=== PATIENT | male | born 1945 | race Caucasian/White ===

== ENCOUNTER → 2018-12-17 | Outpatient (CLI) | payer MEDICARE ==
[2018-12-17 16:27] LABS: Basophils % (A) 0 %; Eosinophils # (A) 0.3 k/uL (0-0.7); Eosinophils % (A) 4 %; HCT 43.3 % (39.0-53.0); HGB 14.2 gm/dL (13.0-17.5); Lymphocytes # (A) 1.6 k/uL (1.0-4.8); Lymphocytes % (A) 19 %; MCH 29.9 pg (25.0-35.0); MCHC 32.8 g/dL (31.0-37.0); MCV 91.3 fL (80.0-100.0); Mean Platelet Volume 6.7; Monocytes # (A) 0.6 k/uL (0-1.0); Monocytes % (A) 7 %; Neutrophils # (A) 5.7 k/uL (1.3-7.7); Neutrophils % (A) 68 %; Platelet Count 222 k/uL (150-450); RBC 4.75 m/uL (4.30-5.90); RDW 12.7 % (11.5-15.5); WBC 8.4 k/uL (3.8-10.6)
[2018-12-17 16:32] LABS: Amorphous Sediment,Urine Rare /hpf; Appearance,Urine Clear (Clear); Bilirubin,Urine Negative (Negative); Blood,Urine Negative (Negative); Color,Urine Yellow; Glucose,Urine (UA) Negative (Negative); Hyaline Casts,Urine 6 /lpf (0-2); Ketones,Urine Negative (Negative); Leukocyte Esterase,Urine Moderate (Negative); Mucus,Urine Rare /hpf; Nitrite,Urine Negative (Negative); Protein,Urine Negative (Negative); Specific Gravity,Urine 1.021 (1.001-1.035); Squamous Epithelial Cell,Urine 1 /hpf (0-4); Urobilinogen,Urine <2.0 mg/dL (<2.0)
[2018-12-17 16:39] LABS: Calcium 9.8 mg/dL (8.4-10.2)
[2018-12-17 17:05] LABS: Potassium 4.4 mmol/L (3.5-5.1)
--- NOTE | 2018-12-17 22:37 | US ---
EXAMINATION TYPE: US scrotum with doppler. Grayscale and color Doppler Duplex imaging performed of griffin leija scrotum. DATE OF EXAM: 12/17/2018 COMPARISON: Prior scrotal ultrasound March 02, 2013 CLINICAL HISTORY: M50.89 Testicular mass. Left testicle pain and edema. EXAM MEASUREMENTS: TESTICLES: Right Testicle: 3.4 x 2.3 x 3.3 cm Left Testicle: 4.0 x 2.6 x 3.2 cm EPIDIDYMIS HEAD: Right Epididymis: .6 x .8 cm Cystic area seen .3 x .2 cm. Left Epididymis: 1.0 x 1.1 x 1.3 cm Cystic area .7 x .6 x .9cm. Doppler performed to assess for testicular vascularity; good bilateral color flow and waveforms are s een. Presence of hydroceles: Yes left Presence of varicoceles: No Comparison view show symmetric blood flow to both testicles during real-time scanning per technologis t. IMPRESSION: Small left-sided scrotal fluid collection or hydrocele. Incidental bilateral epididymal thin-walled cysts. No suspicious diminished or increased blood flow to left testicle.
== END | disposition home or self-care (01) ==
LOC: RADUSMAIN 15:44
PROVIDERS: ATTEND Family Medicine
DX: N43.3 Hydrocele, unspecified (principal)
CPT/HCPCS: 76870; 80048; 81001; 85025; 87086; 93975

== ENCOUNTER 2020-11-15 10:34 | Day surgery (SDC) | payer MEDICARE ==
[2020-11-13 13:50] VITALS: BMI 32.5
[~2020-11-15 10:34] MED LIST: ALPRAZolam 0.25 MG TAB PO PRN; ALPRAZolam 0.5 MG TAB PO PRN; ATORVASTATIN 80 MG TAB PO STA; HEPARIN SODIUM,PORCINE 10,000 UNIT in SODIUM CHLORIDE 0.9% 1,000 ML IRRIGATION PRN; HEPARIN SODIUM,PORCINE 2,500 UNIT in SODIUM CHLORIDE 0.9% 250 ML IRRIGATION PRN; NITROGLYCERIN SL TABS 0.4 MG TAB SUBLINGUAL PRN; SODIUM CHLORIDE 0.9% 1,000 ML in EMPTY BAG 1 BAG IV ONE
[2020-11-15] MEDS ORDERED: SODIUM CHLORIDE 0.9% 1,000 ML IV ONE (10:57)
[2020-11-15 11:06] LABS: Glucose,Whole Blood 181 mg/dL (75-99)
[2020-11-15 11:10] VITALS: RESP 16; TEMP 98.4
[2020-11-15] MEDS ORDERED: fentaNYL (PF) 50 MCG/ML 2 ML AMP ONE (12:02)
[2020-11-15] MEDS ORDERED: BENZOCAINE SPRAY 1 CAN MUCOUS MEM ONE (12:17)
[2020-11-15] MEDS ORDERED: IV FLUID CONTINUATION 650 ML IV ONE (12:25)
[2020-11-15] MEDS ORDERED: LIDOCAINE 1% INJ 10MG/ML (20 ML MDV) ONE (12:26)
[2020-11-15] MEDS ORDERED: VERAPAMIL 2.5 MG/ML 2 ML AMP ONE (12:26)
[2020-11-15] MEDS ORDERED: MIDAZOLAM 2 MG/2 ML VIAL IVP ONE ×3 (12:28→12:31)
[2020-11-15] MEDS: fentaNYL (PF) 50 MCG/ML 2 ML AMP IVP ONE ×2 (12:28→12:31)
[2020-11-15] MEDS ORDERED: LIDOCAINE 1% INJ 10MG/ML (20 ML MDV) SQ ONE (13:13)
[2020-11-15] MEDS ORDERED: VERAPAMIL SYRINGE (5 MG/10 ML) INTRAARTER ONE (13:18)
[2020-11-15] MEDS ORDERED: HEPARIN SODIUM 1,000 UN/ML (10ML VL) IV ONE (13:19)
[2020-11-15] MEDS ORDERED: IOPAMIDOL-370 125ML BTL INJ ONE (13:27)
[2020-11-15] MEDS ORDERED: RX INFO: IV CONTRAST WAS GIVEN 1 EACH MISC MISCELLANE PRN (14:08)
[2020-11-15] MEDS ORDERED: SODIUM CHLORIDE 0.9% 1,000 ML IV SCH (14:15)
[2020-11-15 16:52] VITALS: BP 142/76; PULSE 66
--- NOTE | 2020-11-15 20:53 | P.TEE ---
Description of Procedure(s): Procedure performed: Transesophageal Echocardiogram with color flow doppler, pulsed wave doppler and continuous wave doppler, moderate conscious sedation Moderate conscious sedation: Moderate conscious sedation was supplied with direct supervision of myself using Versed and Fentanyl. Complications: none Indications: Patient is a pleasant 75 year old male with history of HTN, HLD and severe aortic stenosis who has been experiencing increased JACK. He had transthoracic echo performed which showed severe aortic stenosis and therefore KAITLYNN, LHC were recommended. PROCEDURE: After the risks, benefits and alternatives of the above mentioned procedure was explained in detail with the patient, informed consent was obtained. Patient was brought to the lab in a fasting state. Patient was given IV Versed and Fentanyl for sedation. The throat was sprayed with Hurricane to anesthetize the throat. A lubricated Omni probe was then introduced into the esophagus and stomach and multiple views were obtained. 2D echo with color flow doppler, pulsed wave doppler and continuous wave doppler was utilized. Agitated saline bubbles were injected to assess for any intra-atrial shunt. The probe was then removed. Patient tolerated the procedure well. Patient was transferred to the post procedure area in stable and satisfactory condition. FINDINGS: 1. The aortic valve appears tricuspid however cannot rule out bicuspid with mainly fusion of right and left cusps. The valve is heavily calcified with se sameer aortic stenosis. There is mild AI. 2. The mitral valve appears be normal with moderate central mitral regurgitation. There is systolic blunting of the pulmonary vein however no reversal. 3. Tricuspid valve appears to be normal with mild TR. 4. The interatrial septum is intact. No evidence of PFO. 5. Left atrial appendage is free of clot. 6. Left ventricular size and function appear to be low normal with EF 50-55%
--- NOTE | 2020-11-15 21:08 | P.CARDCATH ---
Description of Procedure: PROCEDURES PERFORMED: [Left heart catheterization,] bilateral coronary angiography INDICATION: Severe aortic stenosis HISTORY: Patient is a pleasant 75 year old male with history of hypertension, CKD and hyperlipidemia who has been experiencing increased episodes of SOB over the last few months. He was found to have severe aortic stenosis by TTE and KAITLYNN and LHC were recommended. CONSENT:I have discussed the risks, benefits and alternative therapies for the above-mentioned procedure and for both sedation/analgesia as well as necessary blood product administration, if indicated, as they pertain to this patient. The patient has indicated understanding and acceptance of the risks and procedures discussed. PROCEDURE: After the risks, benefits and alternatives of the above mentioned procedure explained in detail with the patient, informed consent was obtained. Patient was taken to the catheterization lab and prepped and draped in usual fashion. 1% lidocaine was used to anesthetize the right radial artery. A 6- Moldovan sheath was placed in the right radial artery using modified Seldinger technique. Left coronary angiography was performed with a 5-Moldovan JL 3.5 catheter and right coronary angiography was performed with a 5-Moldovan JR5 catheter in various views. The right radial sheath was removed and a TR band wa s placed with hemostasis achieved. The patient tolerated the procedure well. Patient was transported back to the post catheterization holding area in stable condition. Conscious Sedation: Patient was monitored under the direct supervision of vision of myself for conscious sedation using Versed and fentanyl for a total duration of 17 minutes HEMODYNAMICS: Ao: 132/78 SELECTIVE CORONARY ARTERIOGRAPHY: LEFT MAIN: The left main is a large caliber vessel which bifurcates into the LAD and circumflex. There is minimal 10% left main stenosis. LEFT ANTERIOR DESCENDING CORONARY ARTERY: LAD is a large caliber vessel which wraps around to the apex. There is proximal LAD 20% stenosis and mid LAD 60-70% stenosis. Diagonal 1 is moderate caliber and has 30% stenosis. The distal LAD has mild luminal irregularities. LEFT CIRCUMFLEX CORONARY ARTERY: Left circumflex is a large caliber vessel which is codominant. It has mild 20-30% proximal to mid circumflex stenosis. OM1 is small caliber without significant stenosis. OM2 is moderate caliber with mild 20-30% proximal stenosis. After the moderate caliber OM2, there is immediately a small caliber OM3 then the circumflex has a long 100% stenosis which gives off 2 more small caliber OM, PLV branches. There are faint left to right collaterals. RIGHT CORONARY ARTERY: The right coronary artery is a moderate caliber vessel which gives off an RV branch and what appears to be a small caliber PDA branch and is codominant. There is a 100% proximal RCA stenosis. FINAL IMPRESSION: 1. CAD as described above including 100% distal circumflex, 100% RCA, 60-70% mid LAD. 2. Known severe aortic stenosis. PLAN: 1. Aggressive risk factor modification per most recent ACC/AHA guidelines. 2. Follow-up in the office in 1-2 weeks. 3. Multidisciplinary approach regarding possible aortic valve replacement and possible revascularization.
== END 2020-11-15 17:08 | disposition home or self-care (01) ==
LOC: CATHCVL 10:34
PROVIDERS: ATTEND Internal Medicine
DX: I25.10 Atherosclerotic heart disease of native coronary artery without angina pectoris (principal); I25.82 Chronic total occlusion of coronary artery; Z20.822 Contact with and (suspected) exposure to COVID-19; E11.9 Type 2 diabetes mellitus without complications; E78.5 Hyperlipidemia, unspecified; I12.9 Hypertensive chronic kidney disease with stage 1 through stage 4 chronic kidney disease, or unspecified chronic kidney disease; N18.9 Chronic kidney disease, unspecified; Q23.1 Congenital insufficiency of aortic valve; I49.5 Sick sinus syndrome; E66.9 Obesity, unspecified; I42.9 Cardiomyopathy, unspecified; F17.210 Nicotine dependence, cigarettes, uncomplicated; I34.0 Nonrheumatic mitral (valve) insufficiency; I49.1 Atrial premature depolarization; I49.3 Ventricular premature depolarization; Z79.899 Other long term (current) drug therapy; Z79.82 Long term (current) use of aspirin
CPT/HCPCS: 93312; 93320; 93325; 93454; 87635; C1894; J2250; J2001; J3010; J1644; Q9967

== ENCOUNTER 2020-12-02 | Inpatient (IN) | payer MEDICARE | END 2020-12-13 17:00 | disposition home health service (06) | DRG 219 | PROVIDERS: ADMIT Hospitalist | PROC: 5A0945A Assistance with Respiratory Ventilation, 24-96 Consecutive Hours, High Flow/Velocity Cannula (ICD-10-PCS; 2020-12-02) | PROC: B54DZZZ Ultrasonography of Bilateral Lower Extremity Veins (ICD-10-PCS; 2020-12-06) | PROC: 02RF08Z Replacement of Aortic Valve with Zooplastic Tissue, Open Approach (ICD-10-PCS; principal; 2020-12-08) | PROC: 02100Z9 Bypass Coronary Artery, One Artery from Left Internal Mammary, Open Approach (ICD-10-PCS; 2020-12-08) | PROC: 021209W Bypass Coronary Artery, Three Arteries from Aorta with Autologous Venous Tissue, Open Approach (ICD-10-PCS; 2020-12-08) | PROC: 06BQ4ZZ Excision of Left Saphenous Vein, Percutaneous Endoscopic Approach (ICD-10-PCS; 2020-12-08) | PROC: 02L70CK Occlusion of Left Atrial Appendage with Extraluminal Device, Open Approach (ICD-10-PCS; 2020-12-08) | PROC: 5A1221Z Performance of Cardiac Output, Continuous (ICD-10-PCS; 2020-12-08) | PROC: B246ZZ4 Ultrasonography of Right and Left Heart, Transesophageal (ICD-10-PCS; 2020-12-08) | PROC: 3E033XZ Introduction of Vasopressor into Peripheral Vein, Percutaneous Approach (ICD-10-PCS; 2020-12-08) | CPT/HCPCS: 36415; 36600; 70486; 71045; 71046; 71250; 80048; 80053; 80061; 80074; 81001; 81003; 82330; 82805; 83036; 83605; 83615; 83735; 84132; 84145; 84443; 84484; 85025; 85027; 85520; 85610; 85730; 86140; 86850; 86891; 86900; 86901; 86920; 87040; 87070; 87635; 88305; 88311; 93005; 93306; 93308; 93880; 93922; 93923; 93930; 93970; 94002; 94150; 94640; 99285 ==

== ENCOUNTER 2020-12-02 04:13 | Emergency (ER) | payer MEDICARE, BC ==
[2020-12-02 04:20] VITALS: TEMP 102.6
[2020-12-02] MEDS ORDERED: ACETAMINOPHEN TAB 500 MG TAB PO STA (04:22)
[2020-12-02] MEDS ORDERED: SODIUM CHLORIDE 0.9% 1,000 ML IV STA ×2 (04:22)
[2020-12-02] MEDS ORDERED: SODIUM CHLORIDE 0.9% 500 ML 500 ML IV STA (04:22)
[2020-12-02] MEDS ORDERED: IBUPROFEN 800 MG TAB PO STA (04:23)
--- NOTE | 2020-12-02 04:23 | ED ---
SOB HPI - General Chief Complaint: Shortness of Breath Stated Complaint: SOB Time Seen by Provider: 12/02/20 04:21 Source: patient, EMS Mode of arrival: EMS Limitations: no limitations - Related Data Allergies Allergy/AdvReac Type Severity Reaction Status Date / Time No Known Allergies Allergy Verified 12/02/20 04:20 Review of Systems ROS Statement: Those systems with pertinent positive or pertinent negative responses have been documented in the HPI. ROS Other: All systems not noted in ROS Statement are negative. Past Medical History Past Medical History: Diabetes Mellitus, Hypertension Additional Past Medical History / Comment(s): pt states that he needs a aortic valve replacement History of Any Multi-Drug Resistant Organisms: None Reported Past Surgical History: Tonsillectomy Past Psychological History: No Psychological Hx Reported Smoking Status: Former smoker Past Alcohol Use History: None Reported Past Drug Use History: None Reported General Exam Limitations: no limitations Course Vital Signs 12/02/20 12/02/20 12/02/20 04:14 04:21 05:00 Temperature 102.6 F H Pulse Rate 124 H 101 H Respiratory 20 20 18 Rate Blood Pressure 118/69 115/70 O2 Sat by Pulse 95 93 L Oximetry Medical Decision Making - Lab Data Result diagrams: 12/02/20 04:25 12/02/20 04:25 Lab Results 12/02/20 12/02/20 12/02/20 Range/Units 04:25 04:25 04:25 WBC 7.7 (3.8-10.6) k/uL RBC 4.16 L (4.30-5.90) m/uL Hgb 12.7 L (13.0-17.5) gm/dL Hct 37.1 L (39.0-53.0) % MCV 89.2 (80.0-100.0) fL MCH 30.5 (25.0-35.0) pg MCHC 34.2 (31.0-37.0) g/dL RDW 12.6 (11.5-15.5) % Plt Count 178 (150-450) k/uL MPV 7.2 Neutrophils % 83 % Lymphocytes % 8 % Monocytes % 6 % Eosinophils % 1 % Basophils % 0 % Neutrophils # 6.4 (1.3-7.7) k/uL Lymphocytes # 0.6 L (1.0-4.8) k/uL Monocytes # 0.5 (0-1.0) k/uL Eosinophils # 0.1 (0-0.7) k/uL Basophils # 0.0 (0-0.2) k/uL PT 10.5 (9.0-12.0) sec INR 1.0 (<1.2) APTT 23.6 (22.0-30.0) sec Sodium 136 L (137-145) mmol/L Potassium 4.2 (3.5-5.1) mmol/L Chloride 106 (98-107) mmol/L Carbon Dioxide 19 L (22-30) mmol/L Anion Gap 11 mmol/L BUN 29 H (9-20) mg/dL Creatinine 1.24 (0.66-1.25) mg/dL Est GFR (CKD-EPI)AfAm 66 (>60 ml/min/1.73 sqM) Est GFR (CKD-EPI)NonAf 57 (>60 ml/min/1.73 sqM) Glucose 209 H (74-99) mg/dL Plasma Lactic Acid Mio (0.7-2.0) mmol/L Calcium 8.9 (8.4-10.2) mg/dL Magnesium 1.7 (1.6-2.3) mg/dL Total Bilirubin 0.8 (0.2-1.3) mg/dL AST 49 (17-59) U/L ALT 28 (4-49) U/L Alkaline Phosphatase 68 (38-126) U/L Lactate Dehydrogenase 562 (313-618) U/L C-Reactive Protein 20.7 H (<1.0) mg/dL NT-Pro-B Natriuret Pep pg/mL Total Protein 6.3 (6.3-8.2) g/dL Albumin 3.5 (3.5-5.0) g/dL Urine Color Urine Appearance (Clear) Urine pH (5.0-8.0) Ur Specific [place] (1.001-1.035) Urine Protein (Negative) Urine Glucose (UA) (Negative) Urine Ketones (Negative) Urine Blood (Negative) Urine Nitrite (Negative) Urine Bilirubin (Negative) Urine Urobilinogen (<2.0) mg/dL Ur Leukocyte Esterase (Negative) Urine RBC (0-5) /hpf Urine WBC (0-5) /hpf Ur Squamous Epith Cells (0-4) /hpf Urine Bacteria (None) /hpf Hyaline Casts (0-2) /lpf Urine Mucus (None) /hpf Acetone, Qual Positive (Negative) Coronavirus (PCR) (Not Detectd) 12/02/20 12/02/20 12/02/20 Range/Units 04:25 04:25 04:43 WBC (3.8-10.6) k/uL RBC (4.30-5.90) m/uL Hgb (13.0-17.5) gm/dL Hct (39.0-53.0) % MCV (80.0-100.0) fL MCH (25.0-35.0) pg MCHC (31.0-37.0) g/dL RDW (11.5-15.5) % Plt Count (150-450) k/uL MPV Neutrophils % % Lymphocytes % % Monocytes % % Eosinophils % % Basophils % % Neutrophils # (1.3-7.7) k/uL Lymphocytes # (1.0-4.8) k/uL Monocytes # (0-1.0) k/uL Eosinophils # (0-0.7) k/uL Basophils # (0-0.2) k/uL PT (9.0-12.0) sec INR (<1.2) APTT (22.0-30.0) sec Sodium (137-145) mmol/L Potassium (3.5-5.1) mmol/L Chloride (98-107) mmol/L Carbon Dioxide (22-30) mmol/L Anion Gap mmol/L BUN (9-20) mg/dL Creatinine (0.66-1.25) mg/dL Est GFR (CKD-EPI)AfAm (>60 ml/min/1.73 sqM) Est GFR (CKD-EPI)NonAf (>60 ml/min/1.73 sqM) Glucose (74-99) mg/dL Plasma Lactic Acid Mio 1.4 (0.7-2.0) mmol/L Calcium (8.4-10.2) mg/dL Magnesium (1.6-2.3) mg/dL Total Bilirubin (0.2-1.3) mg/dL AST (17-59) U/L ALT (4-49) U/L Alkaline Phosphatase (38-126) U/L Lactate Dehydrogenase (313-618) U/L C-Reactive Protein (<1.0) mg/dL NT-Pro-B Natriuret Pep 2500 pg/mL Total Protein (6.3-8.2) g/dL Albumin (3.5-5.0) g/dL Urine Color Yellow Urine Appearance Cloudy (Clear) Urine pH 5.0 (5.0-8.0) Ur Specific [place] 1.024 (1.001-1.035) Urine Protein 1+ H (Negative) Urine Glucose (UA) 1+ H (Negative) Urine Ketones 2+ H (Negative) Urine Blood Small H (Negative) Urine Nitrite Negative (Negative) Urine Bilirubin Negative (Negative) Urine Urobilinogen <2.0 (<2.0) mg/dL Ur Leukocyte Esterase Large H (Negative) Urine RBC 2 (0-5) /hpf Urine WBC 56 H (0-5) /hpf Ur Squamous Epith Cells 1 (0-4) /hpf Urine Bacteria Rare H (None) /hpf Hyaline Casts 15 H (0-2) /lpf Urine Mucus Rare H (None) /hpf Acetone, Qual (Negative) Coronavirus (PCR) (Not Detectd) 12/02/20 Range/Units 05:15 WBC (3.8-10.6) k/uL RBC (4.30-5.90) m/uL Hgb (13.0-17.5) gm/dL Hct (39.0-53.0) % MCV (80.0-100.0) fL MCH (25.0-35.0) pg MCHC (31.0-37.0) g/dL RDW (11.5-15.5) % Plt Count (150-450) k/uL MPV Neutrophils % % Lymphocytes % % Monocytes % % Eosinophils % % Basophils % % Neutrophils # (1.3-7.7) k/uL Lymphocytes # (1.0-4.8) k/uL Monocytes # (0-1.0) k/uL Eosinophils # (0-0.7) k/uL Basophils # (0-0.2) k/uL PT (9.0-12.0) sec INR (<1.2) APTT (22.0-30.0) sec Sodium (137-145) mmol/L Potassium (3.5-5.1) mmol/L Chloride (98-107) mmol/L Carbon Dioxide (22-30) mmol/L Anion Gap mmol/L BUN (9-20) mg/dL Creatinine (0.66-1.25) mg/dL Est GFR (CKD-EPI)AfAm (>60 ml/min/1.73 sqM) Est GFR (CKD-EPI)NonAf (>60 ml/min/1.73 sqM) Glucose (74-99) mg/dL Plasma Lactic Acid Mio (0.7-2.0) mmol/L Calcium (8.4-10.2) mg/dL Magnesium (1.6-2.3) mg/dL Total Bilirubin (0.2-1.3) mg/dL AST (17-59) U/L ALT (4-49) U/L Alkaline Phosphatase (38-126) U/L Lactate Dehydrogenase (313-618) U/L C-Reactive Protein (<1.0) mg/dL NT-Pro-B Natriuret Pep pg/mL Total Protein (6.3-8.2) g/dL Albumin (3.5-5.0) g/dL Urine Color Urine Appearance (Clear) Urine pH (5.0-8.0) Ur Specific [place] (1.001-1.035) Urine Protein (Negative) Urine Glucose (UA) (Negative) Urine Ketones (Negative) Urine Blood (Negative) Urine Nitrite (Negative) Urine Bilirubin (Negative) Urine Urobilinogen (<2.0) mg/dL Ur Leukocyte Esterase (Negative) Urine RBC (0-5) /hpf Urine WBC (0-5) /hpf Ur Squamous Epith Cells (0-4) /hpf Urine Bacteria (None) /hpf Hyaline Casts (0-2) /lpf Urine Mucus (None) /hpf Acetone, Qual (Negative) Coronavirus (PCR) Not Detected (Not Detectd) - EKG Data -: EKG Interpreted by Me (PG sinus tachycardia 119 MT 208 QRS 132 QTC 424) Disposition Clinical Impression: UTI (urinary tract infection), Fever, Acute pulmonary edema, Congestive heart failure Disposition: ADMITTED IP TO THIS HOSP Condition: Good Is patient prescribed a controlled substance at d/c from ED?: No Referrals: Jimmy Olson DO [Primary Care Provider] - 1-2 days
--- NOTE | 2020-12-02 05:04 | XR ---
EXAMINATION TYPE: XR chest 1V portable DATE OF EXAM: 12/02/2020 COMPARISON: NONE HISTORY: Short of breath TECHNIQUE: Single view FINDINGS: There is increased pulmonary interstitial density. Heart size is normal. There is no defini te pleural effusion. There are no hilar masses. IMPRESSION: Mild pulmonary interstitial infiltrates are new compared to old exam. This is nonspecific . This could be acute interstitial pneumonia.
[2020-12-02 05:06] VITALS: BP 115/70; PULSE 101; RESP 18
[2020-12-02] MEDS ORDERED: FUROSEMIDE 10 MG/ML 4 ML VIAL IV SCH (06:00)
== END 2020-12-02 06:43 | disposition home or self-care (01) ==
LOC: EDUNIT# 04:13 → EC 04:13
DX: I11.0 Hypertensive heart disease with heart failure (principal); I50.9 Heart failure, unspecified; J81.0 Acute pulmonary edema; N39.0 Urinary tract infection, site not specified; E11.9 Type 2 diabetes mellitus without complications; Z20.822 Contact with and (suspected) exposure to COVID-19; Z87.891 Personal history of nicotine dependence
CPT/HCPCS: 36415; 80053; 81001; 82009; 83605; 83615; 83735; 83880; 85025; 85610; 85730; 86140; 87635; 93005; 99285

== ENCOUNTER 2021-04-29 18:42 | Emergency (ER) | payer MEDICARE ==
--- NOTE | 2021-04-29 21:09 | ED ---
Male Urogenital HPI - General Chief complaint: Urogenital Stated complaint: Unable to urinate Time Seen by Provider: 04/29/21 21:09 Source: patient Mode of arrival: ambulatory Limitations: no limitations - History of Present Illness Initial comments: Bienvenido deluca 75-year-old, history of prostatic hypertrophy for which he follows with urology. Patient was diagnosed with a UTI earlier this week, is currently on antibiotics. Patient went to the clinic earlier today because he was unable to urinate, they performed a straight catheterization and he had 950 mL's of urine drained. He did not have a Tompkins catheter placed. He has not been able to urinate since at times he came to the ER for reevaluation. Patient is also concerned because he is scheduled to have a pacemaker placed on May 08, he is concerned that being treated for an infection will prevent him from being able to have his procedure. - Related Data Home Medications Medication Instructions Recorded Confirmed Alfuzosin HCl [Alfuzosin HCl ER] 10 mg PO HS 11/13/20 12/02/20 Cholecalciferol [Vitamin D3 (25 25 mcg PO DAILY 11/13/20 12/02/20 Mcg = 1000 Iu)] Multivit-Min/FA/Lycopen/Lutein 1 each PO DAILY 11/13/20 12/02/20 [Centrum Silver Tablet] Famotidine [Pepcid] 20 mg PO BID 12/02/20 12/02/20 Rosuvastatin Calcium [Crestor] 20 mg PO DAILY 12/02/20 12/02/20 Previous Rx's Medication Instructions Recorded Acetaminophen Tab [Tylenol] 650 mg PO Q4HR PRN tab 12/13/20 Amiodarone [Cordarone] 400 mg PO BID #45 tab 12/13/20 Ascorbic Acid [Vitamin C] 500 mg PO BID-W/MEALS #30 tab 12/13/20 Aspirin 325 mg PO DAILY #30 tab 12/13/20 Clopidogrel [Plavix] 75 mg PO DAILY #30 tab 12/13/20 Ferrous Sulfate [Iron (65 MG 325 mg PO BID-W/MEALS #30 tab 12/13/20 Elemental)] Losartan [Cozaar] 12.5 mg PO DAILY@1200 #30 tab 12/13/20 Melatonin 6 mg PO HS PRN tablet 12/13/20 Metoprolol Tartrate [Lopressor] 12.5 mg PO BID #60 tab 12/13/20 Psyllium Husk 100% [Metamucil 6 gm PO DAILY packet 12/13/20 Packet] Sennosides-Docusate Sodium 2 each PO HS PRN tab 12/13/20 [Senokot-S] glipiZIDE [Glucotrol] 2.5 mg PO AC-BID #60 tab 12/13/20 metFORMIN HCL [Glucophage] 1,000 mg PO BID-W/MEALS #60 tab 12/13/20 Allergies Allergy/AdvReac Type Severity Reaction Status Date / Time ibuprofen Allergy TOLD NOT Verified 04/29/21 20:17 TO TAKE PER BECAUSE OF HIS KIDNEYS Review of Systems ROS Statement: Those systems with pertinent positive or pertinent negative responses have been documented in the HPI. ROS Other: All systems not noted in ROS Statement are negative. 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 Recent urinary tract infection treated with Cipro. History of Any Multi-Drug Resistant Organisms: None Reported Past Surgical History: Adenoidectomy, Coronary Bypass/CABG, Tonsillectomy Additional Past Surgical History / Comment(s): Per patient recent heart cath found double vessel disease and aortic stenois. Patient was to see Dr. Mendoza 12/12 for CABG workup. Past Anesthesia/Blood Transfusion Reactions: No Reported Reaction Past Psychological History: No Psychological Hx Reported Smoking Status: Former smoker Past Alcohol Use History: None Reported Past Drug Use History: None Reported - Past Family History Sister(s) Family Medical History: Cancer Additional Family Medical History / Comment(s): LUNG CANCER General Exam - General Exam Comments Initial Comments: Physical Exam GENERAL: Patient is well-developed and well-nourished. Patient is nontoxic and well-hydrated and is in no distress. HENT: Normocephalic, Atraumatic. EYES: PERRL, EOMI PULMONARY: Unlabored respirations. CARDIOVASCULAR: RRR Warm and well perfused extremities ABDOMEN: Non-distended SKIN: No rashes or bruising : Deferred NEUROLOGIC: Alert and oriented Normal speech Normal gait MUSCULOSKELETAL: Moving all extremities with no apparent injury PSYCHIATRIC: No SI/HI Limitations: no limitations Course Vital Signs 04/29/21 20:18 Temperature 98.3 F Pulse Rate 69 Respiratory 16 Rate Blood Pressure 163/84 O2 Sat by Pulse 99 Oximetry Medical Decision Making - Medical Decision Making The patient was seen and evaluated, history is obtained from the patient and at bedside pleasant 75-year-old [place] being treated for urinary tract infection, has recurrent episode of urinary retention will have a Tompkins catheter placed. Urinalysis and culture were performed yesterday and culture results are pending. 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 Disposition Clinical Impression: Urinary retention Disposition: HOME SELF-CARE Condition: Stable Instructions (If sedation given, give patient instructions): Tompkins Catheter Placement and Care (ED) Is patient prescribed a controlled substance at d/c from ED?: No Referrals: López Aden DO [Primary Care Provider] - 1-2 days
[2021-04-29 22:43] VITALS: BP 148/68; PULSE 76; RESP 17; TEMP 98.1
== END 2021-04-29 22:25 | disposition home or self-care (01) ==
LOC: EC 18:42
DX: R33.9 Retention of urine, unspecified (principal); I25.10 Atherosclerotic heart disease of native coronary artery without angina pectoris; E11.9 Type 2 diabetes mellitus without complications; K21.9 Gastro-esophageal reflux disease without esophagitis; E78.5 Hyperlipidemia, unspecified; I10 Essential (primary) hypertension; M19.90 Unspecified osteoarthritis, unspecified site; Z95.0 Presence of cardiac pacemaker; Z79.82 Long term (current) use of aspirin; Z79.02 Long term (current) use of antithrombotics/antiplatelets; Z79.84 Long term (current) use of oral hypoglycemic drugs; Z88.6 Allergy status to analgesic agent; Z90.89 Acquired absence of other organs; Z95.5 Presence of coronary angioplasty implant and graft; Z87.891 Personal history of nicotine dependence
CPT/HCPCS: 51702; 99283

== ENCOUNTER 2021-05-26 16:26 | Emergency (ER) | payer MEDICARE ==
[2021-05-26 16:38] VITALS: BP 162/94; PULSE 67; RESP 18; TEMP 98.4
[2021-05-26 16:58] LABS: Appearance,Urine Clear (Clear); Bacteria,Urine Moderate /hpf; Bilirubin,Urine Negative (Negative); Blood,Urine Large (Negative); Budding Yeast,Urine Occasional /hpf; Color,Urine Light Red; Glucose,Urine (UA) Negative (Negative); Ketones,Urine Negative (Negative); Leukocyte Esterase,Urine Small (Negative); Nitrite,Urine Negative (Negative); PH, Urine 6.5 (5.0-8.0); Protein,Urine 1+ (Negative); RBC,Urine 34 /hpf (0-5); Specific Gravity,Urine 1.003 (1.001-1.035); Squamous Epithelial Cell,Urine <1 /hpf (0-4); Urobilinogen,Urine <2.0 mg/dL (<2.0); WBC,Urine 5 /hpf (0-5)
--- NOTE | 2021-05-26 19:13 | ED ---
General Adult HPI - General Chief complaint: Urogenital Stated complaint: Blood in the urine/veliz Time Seen by Provider: 05/26/21 18:10 Source: patient, family, RN notes reviewed - History of Present Illness Initial comments: 75-year-old male with a past medical history of CAD, diabetes mellitus, hyperlipidemia, hypertension, GERD, renal disease presents to the emergency room for hematuria. Patient reports that he has an indwelling Veliz catheter for BPH. He states that the past couple days he has had red urine on and off. States that his replaced the catheter yesterday but it did not seem to help. States in and get his clearance times it is bloody. Patient does see Dr. Gan in the outpatient setting. Patient denies any pain whatsoever. He denies any blood thinners aside from Plavix.Patient has no other complaints at this time including shortness of breath, chest pain, abdominal pain, nausea or vomiting, headache, or visual changes. - Related Data Home Medications Medication Instructions Recorded Confirmed Alfuzosin HCl [Alfuzosin HCl ER] 10 mg PO HS 11/13/20 12/02/20 Cholecalciferol [Vitamin D3 (25 25 mcg PO DAILY 11/13/20 12/02/20 Mcg = 1000 Iu)] Multivit-Min/FA/Lycopen/Lutein 1 each PO DAILY 11/13/20 12/02/20 [Centrum Silver Tablet] Famotidine [Pepcid] 20 mg PO BID 12/02/20 12/02/20 Rosuvastatin Calcium [Crestor] 20 mg PO DAILY 12/02/20 12/02/20 Previous Rx's Medication Instructions Recorded Acetaminophen Tab [Tylenol] 650 mg PO Q4HR PRN tab 12/13/20 Amiodarone [Cordarone] 400 mg PO BID #45 tab 12/13/20 Ascorbic Acid [Vitamin C] 500 mg PO BID-W/MEALS #30 tab 12/13/20 Aspirin 325 mg PO DAILY #30 tab 12/13/20 Clopidogrel [Plavix] 75 mg PO DAILY #30 tab 12/13/20 Ferrous Sulfate [Iron (65 MG 325 mg PO BID-W/MEALS #30 tab 12/13/20 Elemental)] Losartan [Cozaar] 12.5 mg PO DAILY@1200 #30 tab 12/13/20 Melatonin 6 mg PO HS PRN tablet 12/13/20 Metoprolol Tartrate [Lopressor] 12.5 mg PO BID #60 tab 12/13/20 Psyllium Husk 100% [Metamucil 6 gm PO DAILY packet 12/13/20 Packet] Sennosides-Docusate Sodium 2 each PO HS PRN tab 12/13/20 [Senokot-S] glipiZIDE [Glucotrol] 2.5 mg PO AC-BID #60 tab 12/13/20 metFORMIN HCL [Glucophage] 1,000 mg PO BID-W/MEALS #60 tab 12/13/20 Allergies Allergy/AdvReac Type Severity Reaction Status Date / Time ibuprofen Allergy TOLD NOT Verified 05/26/21 16:[address] BECAUSE OF HIS KIDNEYS Review of Systems ROS Statement: Those systems with pertinent positive or pertinent negative responses have been documented in the HPI. ROS Other: All systems not noted in ROS Statement are negative. 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 Recent urinary tract infection treated with Cipro. History of Any Multi-Drug Resistant Organisms: None Reported Past Surgical History: Adenoidectomy, Coronary Bypass/CABG, Tonsillectomy Additional Past Surgical History / Comment(s): Per patient recent heart cath found double vessel disease and aortic stenois. Patient was to see Dr. Mendoza 12/12 for CABG workup. Past Anesthesia/Blood Transfusion Reactions: No Reported Reaction Past Psychological History: No Psychological Hx Reported Smoking Status: Former smoker Past Alcohol Use History: None Reported Past Drug Use History: None Reported - Past Family History Sister(s) Family Medical History: Cancer Additional Family Medical History / Comment(s): LUNG CANCER General Exam General appearance: alert, in no apparent distress Head exam: Present: atraumatic Eye exam: Present: normal appearance, PERRL, EOMI. Absent: scleral icterus, conjunctival injection ENT exam: Present: normal exam, mucous membranes moist Neck exam: Present: normal inspection, full ROM. Absent: tenderness Respiratory exam: Present: normal lung sounds bilaterally. Absent: respiratory distress, wheezes Cardiovascular Exam: Present: regular rate, normal rhythm, normal heart sounds GI/Abdominal exam: Present: soft, normal bowel sounds. Absent: distended, tenderness Neurological exam: Present: alert Course Vital Signs 05/26/21 16:35 Temperature 98.4 F Pulse Rate 67 Respiratory 18 Rate Blood Pressure 162/94 O2 Sat by Pulse 99 Oximetry Medical Decision Making - Medical Decision Making Vitals are stable. Patient does have some hematuria noted in his Veliz bag. Veliz is swallowing normally. He does not have any pain or abdominal tendern ess. Urinalysis does show large blood with 34 red blood cells. There are 5 white cells which are likely reactive to red cells. We will send a urine culture. At this time, patient is established with Dr Fitch, He will follow up by calling first thing friday. I did discuss if he has a any difficulty with pain or the catheter is not flowing properly he needs to return to the emergency room. 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 - Lab Data Lab Results 05/26/21 Range/Units 16:40 Urine Color Light Red Urine Appearance Clear (Clear) Urine pH 6.5 (5.0-8.0) Ur Specific [place] 1.003 (1.001-1.035) Urine Protein 1+ H (Negative) Urine Glucose (UA) Negative (Negative) Urine Ketones Negative (Negative) Urine Blood Large H (Negative) Urine Nitrite Negative (Negative) Urine Bilirubin Negative (Negative) Urine Urobilinogen <2.0 (<2.0) mg/dL Ur Leukocyte Esterase Small H (Negative) Urine RBC 34 H (0-5) /hpf Urine WBC 5 (0-5) /hpf Ur Squamous Epith Cells <1 (0-4) /hpf Urine Bacteria Moderate H (None) /hpf Urine Yeast (Budding) Occasional H (None) /hpf Disposition Clinical Impression: Hematuria Disposition: HOME SELF-CARE Condition: Good Instructions (If sedation given, give patient instructions): Hematuria (ED) Additional Instructions: Please call Dr. Fitch Friday to follow up. If patient develops any worsening symptoms such as abdominal or flank pain or catheter is not draining return to the emergency room. Is patient prescribed a controlled substance at d/c from ED?: No Referrals: Souphis,López, DO [Primary Care Provider] - 1-2 days Bryan Fitch MD [STAFF PHYSICIAN] - 1-2 days Time of Disposition: 19:12
== END 2021-05-26 19:22 | disposition home or self-care (01) ==
LOC: EC 16:26
DX: R31.9 Hematuria, unspecified (principal); I25.10 Atherosclerotic heart disease of native coronary artery without angina pectoris; E11.9 Type 2 diabetes mellitus without complications; E78.5 Hyperlipidemia, unspecified; I10 Essential (primary) hypertension; K21.9 Gastro-esophageal reflux disease without esophagitis; M19.90 Unspecified osteoarthritis, unspecified site; Z79.82 Long term (current) use of aspirin; Z79.02 Long term (current) use of antithrombotics/antiplatelets; Z79.84 Long term (current) use of oral hypoglycemic drugs; Z88.6 Allergy status to analgesic agent; Z95.1 Presence of aortocoronary bypass graft; Z87.891 Personal history of nicotine dependence
CPT/HCPCS: 81001; 87086; 99283

== ENCOUNTER 2021-06-19 10:10 | Day surgery (SDC) | payer MEDICARE ==
[2021-06-18 12:30] VITALS: BMI 31.1
[~2021-06-19 10:10] MED LIST changes: -ALPRAZolam 0.25 MG TAB PO PRN; -ALPRAZolam 0.5 MG TAB PO PRN; -ATORVASTATIN 80 MG TAB PO STA; -HEPARIN SODIUM,PORCINE 10,000 UNIT in SODIUM CHLORIDE 0.9% 1,000 ML IRRIGATION PRN; -HEPARIN SODIUM,PORCINE 2,500 UNIT in SODIUM CHLORIDE 0.9% 250 ML IRRIGATION PRN; +LIDOCAINE 1% INJ 10MG/ML (20 ML MDV) ONE; -NITROGLYCERIN SL TABS 0.4 MG TAB SUBLINGUAL PRN; -SODIUM CHLORIDE 0.9% 1,000 ML in EMPTY BAG 1 BAG IV ONE; +ceFAZolin 1 GM in SODIUM CHLORIDE 0.9% 250 ML IRRIGATION PRN
[2021-06-19] MEDS: SODIUM CHLORIDE 0.9% 1,000 ML IV SCH (10:40)
[2021-06-19 10:44] LABS: Glucose,Whole Blood 150 mg/dL (75-99)
[2021-06-19] MEDS ORDERED: MIDAZOLAM 2 MG/2 ML VIAL ONE (11:37)
[2021-06-19] MEDS ORDERED: ONDANSETRON 4 MG/2 ML VIAL ONE (11:37)
[2021-06-19] MEDS ORDERED: fentaNYL (PF) 50 MCG/ML 2 ML AMP ONE (11:37)
[2021-06-19] MEDS ORDERED: diphenhydrAMINE 50 MG/ML 1 ML VIAL ONE (11:37)
[2021-06-19] MEDS ORDERED: IOPAMIDOL-370 50ML BTL INJ ONE ×3 (11:51→13:02)
[2021-06-19] MEDS ORDERED: LIDOCAINE 1% INJ 10MG/ML (20 ML MDV) SQ ONE ×2 (12:34→12:48)
[2021-06-19] MEDS ORDERED: ACETAMINOPHEN IV (For NPO) 1,000 MG in EMPTY BAG 1 BAG IVPB ONE (14:24)
[2021-06-19] MEDS ORDERED: ACETAMINOPHEN TAB 325 MG TAB PO PRN (14:24)
--- NOTE | 2021-06-19 17:18 | P.EPPROC ---
- EP Procedure Note Electrophysiology Procedure Note: Left upper extremity venogram 50 mL IV dye injected into the left arm Patent left axillary, subclavian vein Patent innominate veins through up to the SVC Plan Proceed with biventricular pacemaker implantation
[2021-06-19 17:20] LABS: Glucose,Whole Blood 262 mg/dL (75-99)
[2021-06-19 17:57] VITALS: RESP 16
--- NOTE | 2021-06-19 18:02 | CE ---
CARDIAC ELECTROPHYSIOLOGY REPORT Bienvenido Taveras is a 75-year-old male patient who has severe AV consuelo disease with Mobitz type 2 AV block and right bundle branch block and bradycardia. He was brought in for biventricular pacemaker implantation since his anticipated RV pacing percentage with standard dual-chamber pacing would be 100%. He underwent aortic valve replacement a few months back. Patient was brought to the EP lab in a fasting state. Written informed consent was obtained prior to the procedure. IV antibiotics were administered. Local anesthesia was administered. A 4 cm incision was made parallel to the deltopectoral groove, about 1.5 cm medial to it. Incision was carried down to the level of the pectoralis muscle. A subfascial pocket was made. Hemostasis was assured. The left axillary vein was accessed at 3 different points under fluoroscopy, and via appropriately-sized introducer sheaths, 3 leads were positioned. The atrial lead was a Tendril SDX, [address] [employer] leadership program associate model #[id number] and serial number [id number]. This was screwed into the right atrial appendage area. P- waves 2.8 mV. Pacing impedance 513 ohms. Pacing threshold 0.8 V at 0.5 millisecond. Ten- volt test was negative. The RV lead was positioned in the RV apex. R-waves 5.8 mV. Pacing impedance 767 ohms, pacing threshold 0.5 V at 0.5 millisecond. Coronary sinus venogram was performed. The patient did not have any anterolateral vein. He had a large lateral vein, but with some diaphragmatic stimulation and high capture thresholds in the distal portion proximally, the thresholds were much better. However, in order for a stable lead position, we finally accessed the posterolateral vein that connected to this lateral vein distally and went back along the lateral vein in a retrograde direction to place the LV lead. In this position, the lead took a course from the posterolateral vein up through the connecting branch into the lateral vein. The thresholds are excellent. R-waves 15 mV, pacing impedance 700 ohms and pacing threshold from mid2 towards P4 was 1.25 V at 0.5 millisecond. Ten-volt test was negative. All 3 leads were secured to the underlying pectoralis fascia using 2 nonabsorbable sutures. Pocket was irrigated with antibiotic solution. Leads were connected to the biventricular pacemaker generator, [employer] Quadra Allure MP model #[id number] and serial #[id number]. The leads and generator were then placed in the subfascial pocket. The wound was closed in 3 layers and dressed per protocol. RESULT: Successful biventricular pacemaker implantation. PLAN: Maximize beta blockers. IV antibiotics. FRANCESCO / ED: [id number] /
[2021-06-19] MEDS: METOPROLOL SUCCINATE (ER) 50 MG TAB.ER.24H PO SCH (18:06)
--- NOTE | 2021-06-19 20:57 | XR ---
EXAMINATION TYPE: XR chest 1V portable DATE OF EXAM: 06/19/2021 COMPARISON: Chest x-ray December 13.1 HISTORY: Lead placement check. TECHNIQUE: Single AP portable frontal upright view of the chest is obtained. FINDINGS: Overlying sternal wires and mediastinal clips along with left atrial appendage clip are all redemonstrated. There is chronic painful change bilaterally without suspicious focal air space opaci ty, pleural effusion, or pneumothorax seen. The cardiac silhouette size is stable and mildly enlarge d. New multi lead pacemaker with leads projecting over right atrium, right ventricle, and coronary si nus. The osseous structures are intact. IMPRESSION: As above.
[2021-06-19] MEDS ORDERED: METOPROLOL TARTRATE 12.5 MG TAB PO SCH (21:00)
[2021-06-19] MEDS ORDERED: TAMSULOSIN 0.4 MG CAP.ER.24H PO SCH (21:00)
[2021-06-20] MEDS: SODIUM CHLORIDE 0.9% 1,000 ML IV SCH (03:39)
[2021-06-20] MEDS: METOPROLOL SUCCINATE (ER) 50 MG TAB.ER.24H PO SCH (08:46)
[2021-06-20 08:53] VITALS: BP 165/89; PULSE 66; TEMP 97.9
[2021-06-20] MEDS ORDERED: HYDROXYTRYPTOPHAN 50 MG PO SCH (09:00)
[2021-06-20] MEDS ORDERED: ATORVASTATIN 40 MG TAB PO SCH (09:00)
[2021-06-20] MEDS ORDERED: CLOPIDOGREL 75 MG TAB PO SCH (09:00)
[2021-06-20] MEDS ORDERED: FUROSEMIDE 20 MG TAB PO SCH (09:00)
[2021-06-20] MEDS ORDERED: ASPIRIN 81 MG PO SCH (09:00)
[2021-06-20] MEDS ORDERED: LOSARTAN 25 MG TAB PO SCH (12:00)
--- NOTE | 2021-06-20 12:14 | P.DS ---
Providers Attending physician: Michael Toth Primary care physician: López Aden Assessment: Patient is resting comfortably in a chair No hematoma no swelling in the pacemaker site Minimal soakage Breath sounds are equal bilaterally no rhonchi no crackles Normal heart sounds normal S1 normal S2 Blood pressure 165/89 and 150/82 mmHg pulse rate in the 50s and 60s afebrile Impression Severe bradycardia on account of Mobitz type II AV block Status post biventricular pacemaker implantation Pacemaker is functioning normally 8 was interrogated with this is [employer] medical biventricular pacemaker device LV lead is positioned in the lateral LV vein via the posterior lateral vein Hypertension Status post TAVR Suggest Switched to metoprolol succinate 50 mrem daily No other cardiac medications We will see him in the device clinic in a week I will see him again in about 3 months Plan - Discharge Summary Discharge Rx Participant: No New Discharge Prescriptions: No Action RX: Cholecalciferol [Vitamin D3 (25 Mcg = 1000 Iu)] 25 mcg PO DAILY RX: Multivit-Min/FA/Lycopen/Lutein [Centrum Silver Tablet] 1 each PO DAILY RX: Metoprolol Tartrate [Lopressor] 12.5 mg PO BID #60 tab RX: Clopidogrel [Plavix] 75 mg PO DAILY #30 tab RX: metFORMIN HCL [Glucophage] 500 mg PO QAM RX: Aspirin 81 mg PO DAILY metFORMIN HCL [Glucophage] 1,000 mg PO BID Furosemide [Lasix] 20 mg PO DAILY 5-Hydroxytryptophan (5-Htp) [5-Htp (Natrol)] 50 mg PO DAILY RX: Alfuzosin HCl [Alfuzosin HCl ER] 10 mg PO HS RX: Rosuvastatin Calcium [Crestor] 20 mg PO DAILY RX: Losartan [Cozaar] 12.5 mg PO DAILY@1200 #30 tab Quercetin 500 mg PO DAILY Discharge Medication List RX: Alfuzosin HCl [Alfuzosin HCl ER] 10 mg PO HS 11/13/20 [History] RX: Cholecalciferol [Vitamin D3 (25 Mcg = 1000 Iu)] 25 mcg PO DAILY 11/13/20 [History] RX: Multivit-Min/FA/Lycopen/Lutein [Centrum Silver Tablet] 1 each PO DAILY 11/13/20 [History] RX: Rosuvastatin Calcium [Crestor] 20 mg PO DAILY 12/02/20 [History] RX: Clopidogrel [Plavix] 75 mg PO DAILY #30 tab 12/13/20 [Rx] RX: Losartan [Cozaar] 12.5 mg PO DAILY@1200 #30 tab 12/13/20 [Rx] RX: Metoprolol Tartrate [Lopressor] 12.5 mg PO BID #60 tab 12/13/20 [Rx] 5-Hydroxytryptophan (5-Htp) [5-Htp (Natrol)] 50 mg PO DAILY 06/18/21 [History] Furosemide [Lasix] 20 mg PO DAILY 06/18/21 [History] Quercetin 500 mg PO DAILY 06/18/21 [History] RX: Aspirin 81 mg PO DAILY 06/18/21 [History] RX: metFORMIN HCL [Glucophage] 500 mg PO QAM 06/18/21 [History] metFORMIN HCL [Glucophage] 1,000 mg PO BID 06/18/21 [History] Follow up Appointment(s)/Referral(s): Michael Toth MD [STAFF PHYSICIAN] - 1 Week (Office will call with appointment time and date.) Patient Instructions/Handouts: Pacemaker (DC) Activity/Diet/Wound Care/Special Instructions: wear sling to bed for next few days avoid lifting arm over shoulders for next month. follow up with device clinic in next week, follow up with dr Toth in a few months
[2021-06-20] MEDS ORDERED: metFORMIN 500 MG TAB PO SCH (21:00)
[2021-06-22] MEDS ORDERED: metFORMIN 500 MG TAB PO SCH (09:00)
== END 2021-06-20 12:12 | disposition home or self-care (01) ==
LOC: CATHEP 10:10 → 6NMEDSUR 14:21 → CATHEP 06-20 12:12
PROVIDERS: ATTEND Internal Medicine Clinical Cardiac Electrophysiology
DX: I44.1 Atrioventricular block, second degree (principal); I45.10 Unspecified right bundle-branch block; R00.1 Bradycardia, unspecified; I25.5 Ischemic cardiomyopathy; Q21.0 Ventricular septal defect; I49.5 Sick sinus syndrome; Z95.1 Presence of aortocoronary bypass graft; Z95.2 Presence of prosthetic heart valve; Z20.822 Contact with and (suspected) exposure to COVID-19; I48.91 Unspecified atrial fibrillation; Z79.899 Other long term (current) drug therapy; E11.9 Type 2 diabetes mellitus without complications; I10 Essential (primary) hypertension; E78.5 Hyperlipidemia, unspecified; Z72.0 Tobacco use; Z79.84 Long term (current) use of oral hypoglycemic drugs; Z79.02 Long term (current) use of antithrombotics/antiplatelets; Z79.82 Long term (current) use of aspirin
CPT/HCPCS: 33225; 33208; 87635; 71045; C1769 ×4; C1892 ×2; C1730; C1898; C1900; C2621; J2250; J1200; J0690 ×2; J2405; J2001; J3010; Q9967

== ENCOUNTER 2021-06-24 08:08 | Emergency (ER) | payer MEDICARE ==
[2021-06-24] MEDS ORDERED: SODIUM CHLORIDE 0.9% 500 ML 500 ML IV STA (08:26)
[2021-06-24] MEDS ORDERED: METOPROLOL TARTRATE 25 MG TAB PO STA (08:28)
[2021-06-24] MEDS ORDERED: SODIUM CHLORIDE 0.9% 1,000 ML IV STA (08:28)
[2021-06-24] MEDS ORDERED: METOPROLOL SUCCINATE (ER) 50 MG TAB.ER.24H PO STA (08:43)
[2021-06-24 08:54] LABS: Basophils % (A) 1 %; Eosinophils # (A) 0.2 k/uL (0-0.7); Eosinophils % (A) 4 %; HCT 45.8 % (39.0-53.0); HGB 14.7 gm/dL (13.0-17.5); Lymphocytes # (A) 1.2 k/uL (1.0-4.8); Lymphocytes % (A) 23 %; MCH 29.1 pg (25.0-35.0); MCHC 32.2 g/dL (31.0-37.0); MCV 90.4 fL (80.0-100.0); Mean Platelet Volume 7.1; Monocytes # (A) 0.4 k/uL (0-1.0); Monocytes % (A) 7 %; Neutrophils # (A) 3.3 k/uL (1.3-7.7); Neutrophils % (A) 64 %; Platelet Count 174 k/uL (150-450); RBC 5.07 m/uL (4.30-5.90); RDW 14.9 % (11.5-15.5); WBC 5.2 k/uL (3.8-10.6)
--- NOTE | 2021-06-24 08:58 | XR ---
EXAMINATION TYPE: XR chest 2V DATE OF EXAM: 06/24/2021 COMPARISON: 06/19/2021 HISTORY: Chest pain TECHNIQUE: Frontal and lateral views of the chest are obtained. FINDINGS: Prior CABG surgery. 2-lead cardiac pacemaker The lungs are clear. There is possible slight cephalization the pulmonary vasculature which was seen. The heart size is normal. There is no large pleural effusion and no pneumothorax. The osseous structures are intact. IMPRESSION: Questionable mild cephalization the pulmonary vasculature but no interval change compare d to previous.
[2021-06-24] MEDS ORDERED: APIXABAN 5 MG TAB PO SCH ×2 (09:00)
[2021-06-24 09:01] LABS: Albumin 3.7 g/dL (3.5-5.0); Calcium 9.3 mg/dL (8.4-10.2); Magnesium 1.9 mg/dL (1.6-2.3); Potassium 4.2 mmol/L (3.5-5.1); Total Bilirubin 0.9 mg/dL (0.2-1.3); Total Protein 6.9 g/dL (6.3-8.2)
--- NOTE | 2021-06-24 09:01 | ED ---
General Adult HPI - General Chief complaint: Arrhythmia/Palpitations Stated complaint: tachycardia Time Seen by Provider: 06/24/21 08:19 Source: EMS, RN notes reviewed, old records reviewed Mode of arrival: EMS Limitations: no limitations - History of Present Illness Initial comments: Patient is a 75-year-old male with past medical history remarkable for prostate disease with a chronic Tompkins catheter, recent pacemaker placement, MIs, CAD, renal disease who presents emergency Department complaining of tachycardia. He had no symptoms this morning, however checks his heart rate and blood pressure on a daily basis. States his heart rate was in the 120s-130s this morning. Denies any associated chest pain, shortness breath, lightheadedness, weakness, numbness, abdominal pain, nausea, vomiting. Called EMS was brought to emergency department for further evaluation. Pacemaker was placed approximately 5 days ago. Was discussed with Dr. Toth who is currently rounding in the emergency department. Patient otherwise has no acute complaint at this time. - Related Data Home Medications Medication Instructions Recorded Confirmed Alfuzosin HCl [Alfuzosin HCl ER] 10 mg PO HS 11/13/20 06/19/21 Cholecalciferol [Vitamin D3 (25 25 mcg PO DAILY 11/13/20 06/19/21 Mcg = 1000 Iu)] Multivit-Min/FA/Lycopen/Lutein 1 each PO DAILY 11/13/20 06/19/21 [Centrum Silver Tablet] Rosuvastatin Calcium [Crestor] 20 mg PO DAILY 12/02/20 06/19/21 5-Hydroxytryptophan (5-Htp) [5-Htp 50 mg PO DAILY 06/18/21 06/19/21 (Natrol)] Aspirin 81 mg PO DAILY 06/18/21 06/19/21 Furosemide [Lasix] 20 mg PO DAILY 06/18/21 06/19/21 Quercetin 500 mg PO DAILY 06/18/21 06/19/21 metFORMIN HCL [Glucophage] 1,000 mg PO BID 06/18/21 06/19/21 metFORMIN HCL [Glucophage] 500 mg PO QAM 06/18/21 06/19/21 Previous Rx's Medication Instructions Recorded Clopidogrel [Plavix] 75 mg PO DAILY #30 tab 12/13/20 Losartan [Cozaar] 12.5 mg PO DAILY@1200 #30 tab 12/13/20 Metoprolol Tartrate [Lopressor] 12.5 mg PO BID #60 tab 12/13/20 Allergies Allergy/AdvReac Type Severity Reaction Status Date / Time ibuprofen Allergy TOLD NOT Verified 06/24/21 08:21 TO TAKE PER BECAUSE OF HIS KIDNEYS Review of Systems ROS Statement: Those systems with pertinent positive or pertinent negative responses have been documented in the HPI. Review of Systems: CONST: Denies fever EYES: Denies blurry vision ENT: Denies nasal congestion C/V: Denies Chest pain RESP: Denies shortness of breath GI: Denies abdominal pain : Denies dysuria SKIN: Denies rash. MSK: Denies joint pain. NEURO: Denies headache ROS Other: All systems not noted in ROS Statement are negative. 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 Toth H & P History of Any Multi-Drug Resistant Organisms: None Reported Past Surgical History: Adenoidectomy, Cardiac Valve Replacement, Coronary Bypass/CABG, EPS, Heart Catheterization, Pacemaker, Tonsillectomy Additional Past Surgical History / Comment(s): aortic valve replacement December 2020. pacemaker placed on 06/19/21 Past Anesthesia/Blood Transfusion Reactions: No Reported Reaction Date of Last Stent Placement:: December 2020 Past Psychological History: No Psychological Hx Reported Smoking Status: Former smoker - Past Family History Sister(s) Family Medical History: Cancer Additional Family Medical History / Comment(s): LUNG CANCER General Exam - General Exam Comments Initial Comments: General: Appears in no acute distress. HEAD: Normal with no signs of head trauma. EYES: PERRLA, EOMI, conjunctiva normal, no discharge. ENT: Hearing grossly intact, normal oropharynx. RESPIRATORY: Clear breath sounds bilaterally. No wheezes, rales, or rhonchi. C/V: Patient is tachycardic. S1 and S2 auscultated. Peripheral pulses are 2+ and intact throughout. No peripheral edema. ABD: Abd is soft, nontender, nondistended EXT: Normal range of motion, no obvious deformity SKIN: There is some bruising at the site of the pacemaker placement as well as bruising that tracks along the left chest. It appears multiple days old and not acute. Patient stateshe appeared changing. Patient is nontender at the site. NEURO: Alert and oriented 4. No focal deficits. Limitations: no limitations Course Vital Signs 06/24/21 06/24/21 06/24/21 08:10 08:26 09:30 Temperature 98.7 F Pulse Rate 128 H 126 H Pulse Rate [ 128 H Supervisory Geographer ] Respiratory 18 19 Rate Blood Pressure 118/89 100/77 O2 Sat by Pulse 97 96 Oximetry 06/24/21 10:43 Temperature Pulse Rate 57 L Pulse Rate [ Supervisory Geographer ] Respiratory 18 Rate Blood Pressure 133/79 O2 Sat by Pulse 97 Oximetry Medical Decision Making - Medical Decision Making Based on the patient's presentation and physical exam, as well as his bedside EKG, it appears that he is having a ventricularly paced rhythm tachycardia at 120 bpm. I did review the EKG and the case with Dr. Toth at bedside who placed the pacemaker. We both believe that the patient is likely experiencing an atrial tachycardia, and this is the pacemaker's response. Suspect atrial f ibrillation at this time. Patient did have his left atrial appendage clipped, however Dr. Toth would like the patient started on [place] 5 mg twice a day, amiodarone 300 mg IV over 2 hours and then a continuous drip. Patient also be given a dose of his home metoprolol succinate 50 milligrams. Cardiac workup will be obtained. Patient was in agreement this plan. Patient does have a [employer] pacemaker, Dr. Toth requests that we interrogate it, which was done in the ED. As stated above, patient is having a ventricular paced rhythm at 128 bpm, likely secondary to an atrial tachycardia.Chest x-ray reveals questional mild cephalization of pulmonary vascular troponin no interval change compared to previous. Laboratory studies are remarkable for negative troponin. Remainder of the labs are relatively unremarkable including a negative troponin. On reevaluation on repeat EKG, patient did convert from the atrial tachycardia from earlier the amiodarone drip. I discussed with the patient will still be admitted to the hospital. He was in agreement with this plan. Cardiology Dr. Toth was consulted and will follow along the case. I spoke with the admitting team under Dr. Godinez who was in agreement this plan. Patient was therefore admitted in stable condition to a telemetry bed. - Lab Data Result diagrams: 06/24/21 08:29 06/24/21 08:29 Lab Results 06/24/21 06/24/21 06/24/21 Range/Units 08:29 08:29 08:29 WBC 5.2 (3.8-10.6) k/uL RBC 5.07 (4.30-5.90) m/uL Hgb 14.7 (13.0-17.5) gm/dL Hct 45.8 (39.0-53.0) % MCV 90.4 (80.0-100.0) fL MCH 29.1 (25.0-35.0) pg MCHC 32.2 (31.0-37.0) g/dL RDW 14.9 (11.5-15.5) % Plt Count 174 (150-450) k/uL MPV 7.1 Neutrophils % 64 % Lymphocytes % 23 % Monocytes % 7 % Eosinophils % 4 % Basophils % 1 % Neutrophils # 3.3 (1.3-7.7) k/uL Lymphocytes # 1.2 (1.0-4.8) k/uL Monocytes # 0.4 (0-1.0) k/uL Eosinophils # 0.2 (0-0.7) k/uL Basophils # 0.0 (0-0.2) k/uL PT 10.3 (9.0-12.0) sec INR 1.0 (<1.2) APTT 23.4 (22.0-30.0) sec Sodium 136 L (137-145) mmol/L Potassium 4.2 (3.5-5.1) mmol/L Chloride 105 (98-107) mmol/L Carbon Dioxide 24 (22-30) mmol/L Anion Gap 7 mmol/L BUN 21 H (9-20) mg/dL Creatinine 1.00 (0.66-1.25) mg/dL Est GFR (CKD-EPI)AfAm 85 (>60 ml/min/1.73 sqM) Est GFR (CKD-EPI)NonAf 73 (>60 ml/min/1.73 sqM) Glucose 183 H (74-99) mg/dL Calcium 9.3 (8.4-10.2) mg/dL Magnesium 1.9 (1.6-2.3) mg/dL Total Bilirubin 0.9 (0.2-1.3) mg/dL AST 30 (17-59) U/L ALT 18 (4-49) U/L Alkaline Phosphatase 71 (38-126) U/L Troponin I (0.000-0.034) ng/mL Total Protein 6.9 (6.3-8.2) g/dL Albumin 3.7 (3.5-5.0) g/dL Coronavirus (PCR) (Not Detectd) 06/24/21 06/24/21 Range/Units 08:29 08:29 WBC (3.8-10.6) k/uL RBC (4.30-5.90) m/uL Hgb (13.0-17.5) gm/dL Hct (39.0-53.0) % MCV (80.0-100.0) fL MCH (25.0-35.0) pg MCHC (31.0-37.0) g/dL RDW (11.5-15.5) % Plt Count (150-450) k/uL MPV Neutrophils % % Lymphocytes % % Monocytes % % Eosinophils % % Basophils % % Neutrophils # (1.3-7.7) k/uL Lymphocytes # (1.0-4.8) k/uL Monocytes # (0-1.0) k/uL Eosinophils # (0-0.7) k/uL Basophils # (0-0.2) k/uL PT (9.0-12.0) sec INR (<1.2) APTT (22.0-30.0) sec Sodium (137-145) mmol/L Potassium (3.5-5.1) mmol/L Chloride (98-107) mmol/L Carbon Dioxide (22-30) mmol/L Anion Gap mmol/L BUN (9-20) mg/dL Creatinine (0.66-1.25) mg/dL Est GFR (CKD-EPI)AfAm (>60 ml/min/1.73 sqM) Est GFR (CKD-EPI)NonAf (>60 ml/min/1.73 sqM) Glucose (74-99) mg/dL Calcium (8.4-10.2) mg/dL Magnesium (1.6-2.3) mg/dL Total Bilirubin (0.2-1.3) mg/dL AST (17-59) U/L ALT (4-49) U/L Alkaline Phosphatase (38-126) U/L Troponin I <0.012 (0.000-0.034) ng/mL Total Protein (6.3-8.2) g/dL Albumin (3.5-5.0) g/dL Coronavirus (PCR) Not Detected (Not Detectd) - EKG Data -: EKG Interpreted by Me EKG Comments: 12-lead Electrocardiogram Interpretation Note EKG was reviewed and interpreted by myself. 12-lead ECG performed at 0820 is interpreted by me as revealing ventricularly paced rhythm at a rate of 128 beats per minute. Left axis deviation. QRS ration is 152 ms, QTc is 534 ms. CO interval was not obtainable.. There were no ST or T wave abnormalities to suggest myocardial ischemia or injury. R wave progression across the precordium was satisfactory. By my interpretation this EKG is non-diagnostic for acute ischemia. Repeat EKG shows 12-lead Electrocardiogram Interpretation Note EKG was reviewed and interpreted by myself. 12-lead ECG performed at 1119 is interpreted by me as revealing atrial sensed ventricular paced rhythm with prolonged AV conduction at a rate of 58 beats per minute. CO interval is 234 ms, QRS duration is 172 ms, QTC is 492 ms.. There were no ST or T wave abnormalities to suggest myocardial ischemia or injury. R wave progression across the precordium was satisfactory. By my interpretation this EKG is non- diagnostic for acute ischemia. Patient has since converted from his atrial tachycardia. Disposition Clinical Impression: Atrial tachycardia, S/P placement of cardiac pacemaker Disposition: ADMITTED IP TO THIS HOSP Condition: Stable
[2021-06-24] MEDS ORDERED: DEXTROSE 5% IN WATER 250 ML with AMIODARONE 300 MG IV ONE (09:15)
[2021-06-24 09:27] LABS: Partial Thromboplastin Time 23.4 sec (22.0-30.0); Prothrombin Time 10.3 sec (9.0-12.0)
[2021-06-24] MEDS ORDERED: NALOXONE 0.4 MG/ML 1 ML VIAL IV PRN (09:44)
[2021-06-24] MEDS ORDERED: metFORMIN 500 MG TAB PO SCH ×2 (10:00→21:00)
[2021-06-24 10:44] VITALS: PULSE 57
[2021-06-24] MEDS ORDERED: AMIODARONE 360 MG in DEXTROSE 5% IN WATER 200 ML IV ONE ×2 (11:15)
--- NOTE | 2021-06-24 11:49 | P.CRDCN ---
<Lulu Blum - Last Filed: 06/24/21 11:36> History of Present Illness Consult date: 06/24/21 Consult reason: atrial flutter History of present illness: The patient is a 75-year-old male who follows in the office with Dr. Toth, who presented to the hospital with palpitations. The patient states he woke up this morning with an elevated heart rate. He denies any associated symptoms such as chest pain, shortness of breath, dizziness, or lightheadedness. The jennifer crain did undergo pacemaker implant approximately one week ago. He believes he has been recovering well. DIAGNOSTICS: EKG shows underlying atrial flutter/atrial tachycardia with ventricular tracking rate at 128bpm Chest x-ray unremarkable Vitals: Blood pressure 118/89, SpO2 97% on room air, respiratory rate 18, temp 98.7 Lab data: WBC 5.2, hemoglobin 14.7, hematocrit 45.8, platelet 174, sodium 136, potassium 4.2, BUN 21, creatinine 1.0, magnesium 1.9, AST 30, ALT 18, troponin normal PAST MEDICAL HISTORY: Second-degree heart block, status post permanent pacemaker, coronary artery disease, status post CABG, aortic valve replacement with bioprosthetic valve, left atrial appendage closure REVIEW OF SYSTEMS: No fever or chills. No cough or expectoration. No diaphoresis. Patient denies headache, dizziness, blurred vision, double vision. Patient denies any stomach discomfort. No nausea, vomiting. No hematochezia. No hematemesis. Denies any black stools or blood in his stools. Denies dysuria or hematuria. No muscle weakness or numbness. Negative for chest pain or chest pressure. Negative for shortness of breath PHYSICAL EXAMINATION: This is a 75-year-old male in no apparent distress at the time of my examination. HEENT: Head is atraumatic, normocephalic. Pupils are equal, round. Sclerae anicteric. Conjunctivae are clear. Mucous membranes of the mouth are moist. Neck is supple. There is no jugular venous distention. No carotid bruit is heard. CHEST EXAMINATION: Lungs are clear to auscultation. No chest wall tenderness is noted on palpation or with deep breathing. Bruising noted on the left anterior chest wall. Minimal drainage from pacemaker site. Surgical dressing in place. HEART EXAMINATION: Regular heart rate. Notably tachycardic. S1, S2 heard. No murmurs, gallops or rub. ABDOMEN: Soft, nontender. Bowel sounds are heard. No organomegaly noted. EXTREMITIES: 2+ peripheral pulses with no evidence of peripheral edema and no calf tenderness noted. NEUROLOGIC EXAMINATION: Patient is awake, alert and oriented x3. FINAL ASSESSMENT AND PLAN: Atrial flutter/atrial tachycardia with RVR, likely irritation from atrial lead placement Status post permanent pacemaker, ventricular tracking rate in the 120 bpm History of CABG History of aortic valve replacement History of atrial appendage closure, not confirmed via [facility] PLAN: Start the patient on Eliquis 5 mg as atrial appendage closure has not been confirmed 300 mg amiodarone bolus over 2 hours, followed by amiodarone drip Continue Toprol-XL Device interrogation by [facility] The patient does not spontaneously cardiovert with amiodarone, he will undergo cardioversion with Dr. Toth Further recommendations to be placed upon clinical course The patient has been seen and evaluated by practitioner and coordinating physician. Plan of care has been reviewed and agreed upon by Dr Toth. 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 Toth H & P History of Any Multi-Drug Resistant Organisms: None Reported Past Surgical History: Adenoidectomy, Cardiac Valve Replacement, Coronary Bypass/CABG, EPS, Heart Catheterization, Pacemaker, Tonsillectomy Additional Past Surgical History / Comment(s): aortic valve replacement December 2020. pacemaker placed on 06/19/21 Past Anesthesia/Blood Transfusion Reactions: No Reported Reaction Date of Last Stent Placement:: December 2020 Past Psychological History: No Psychological Hx Reported Smoking Status: Former smoker - Past Family History Sister(s) Family Medical History: Cancer Additional Family Medical History / Comment(s): LUNG CANCER Medications and Allergies Home Medications Medication Instructions Recorded Confirmed Type Alfuzosin HCl [Alfuzosin HCl ER] 10 mg PO HS 11/13/20 06/24/21 History Cholecalciferol [Vitamin D3 (25 25 mcg PO DAILY@1200 11/13/20 06/24/21 History Mcg = 1000 Iu)] Multivit-Min/FA/Lycopen/Lutein 1 tab PO DAILY@1200 11/13/20 06/24/21 History [Centrum Silver Tablet] Rosuvastatin Calcium [Crestor] 20 mg PO DAILY 12/02/20 06/24/21 History Clopidogrel [Plavix] 75 mg PO DAILY #30 tab 12/13/20 06/24/21 Rx Losartan [Cozaar] 12.5 mg PO DAILY@1200 #30 tab 12/13/20 06/24/21 Rx 5-Hydroxytryptophan (5-Htp) [5-Htp 50 mg PO DAILY@1200 06/18/21 06/24/21 History (Natrol)] Furosemide [Lasix] 20 mg PO DAILY 06/18/21 06/24/21 History Quercetin 500 mg PO DAILY@1200 06/18/21 06/24/21 History Aspirin EC [Ecotrin Low Dose] 81 mg PO DAILY@1200 06/24/21 06/24/21 History Metoprolol Succinate (ER) [Toprol 50 mg PO DAILY 06/24/21 06/24/21 History Xl] metFORMIN HCL 1,000 mg PO W/SUPPER 06/24/21 06/24/21 History metFORMIN HCL [Glucophage] 500 mg PO W/BRKFST 06/24/21 06/24/21 History Allergies Allergy/AdvReac Type Severity Reaction Status Date / Time ibuprofen AdvReac TOLD NOT Verified 06/24/21 12:[address] BECAUSE OF HIS KIDNEYS Physical Exam Vitals: Vital Signs Temp Pulse Pulse Resp BP Pulse Ox 06/24/21 10:43 57 L 18 133/79 97 06/24/21 09:30 126 H 19 100/77 96 06/24/21 08:26 128 H 06/24/21 08:10 98.7 F 128 H 18 118/89 97 Intake and Output 06/23/21 06/24/21 06/24/21 22:59 06:59 14:59 Other: Weight 104.326 kg Results 06/24/21 08:29 06/24/21 08:29 Cardiac Enzymes 06/24/21 06/24/21 Range/Units 08:29 08:29 AST 30 (17-59) U/L Troponin I <0.012 (0.000-0.034) ng/mL Coagulation 06/24/21 Range/Units 08:29 PT 10.3 (9.0-12.0) sec APTT 23.4 (22.0-30.0) sec CBC 06/24/21 Range/Units 08:29 WBC 5.2 (3.8-10.6) k/uL RBC 5.07 (4.30-5.90) m/uL Hgb 14.7 (13.0-17.5) gm/dL Hct 45.8 (39.0-53.0) % Plt Count 174 (150-450) k/uL Comprehensive Metabolic Panel 06/24/21 Range/Units 08:29 Sodium 136 L (137-145) mmol/L Potassium 4.2 (3.5-5.1) mmol/L Chloride 105 (98-107) mmol/L Carbon Dioxide 24 (22-30) mmol/L BUN 21 H (9-20) mg/dL Creatinine 1.00 (0.66-1.25) mg/dL Glucose 183 H (74-99) mg/dL Calcium 9.3 (8.4-10.2) mg/dL AST 30 (17-59) U/L ALT 18 (4-49) U/L Alkaline Phosphatase 71 (38-126) U/L Total Protein 6.9 (6.3-8.2) g/dL Albumin 3.7 (3.5-5.0) g/dL Current Medications Generic Name Dose Route Start Last Admin Trade Name Freq PRN Reason Stop Dose Admin Apixaban 5 mg 06/24/21 09:00 06/24/21 08:54 Apixaban 5 Mg Tab PO 5 mg BID PHYLLIS Administration Protocol Aspirin 81 mg 06/25/21 09:00 Aspirin 81 Mg PO DAILY [facility] Clopidogrel Bisulfate 75 mg 06/24/21 10:00 Clopidogrel 75 Mg Tab PO DAILY PHYLLIS Sodium Chloride 1,000 mls @ 100 mls/hr 06/24/21 08:28 06/24/21 08:55 Saline 0.9% IV 06/24/21 18:27 100 mls/hr .Q10H STA Administration Amiodarone HCl 450 mg/ 250 mls @ 16.667 mls/hr 06/24/21 17:15 Dextrose/Water IV 06/25/21 11:14 .Q15H PHYLLIS Protocol 0.5 MG/MIN Amiodarone HCl 360 mg/ 200 mls @ 33.333 mls/hr 06/24/21 11:15 Dextrose/Water IV 06/24/21 17:14 .Q6H ONE Protocol 1 MG/MIN Metformin HCl 500 mg 06/24/21 10:00 Metformin 500 Mg Tab PO QAM PHYLLIS Metformin HCl 1,000 mg 06/24/21 21:00 Metformin 500 Mg Tab PO HS PHYLLIS Naloxone HCl 0.2 mg 06/24/21 09:44 Naloxone 0.4 Mg/Ml 1 Ml Vial IV Q2M PRN Opioid Reversal Intake and Output 06/23/21 06/24/21 06/24/21 22:59 06:59 14:59 Other: Weight 104.326 kg Patient Weight 06/25/21 06:59 Weight 104.326 kg 06/24/21 08:29 06/24/21 08:29 <Michael Toth - Last Filed: 06/24/21 12:49> Physical Exam Vitals: Vital Signs Temp Pulse Pulse Resp BP Pulse Ox 06/24/21 12:30 98.8 F 57 L 16 125/73 97 06/24/21 10:43 57 L 18 133/79 97 06/24/21 09:30 126 H 19 100/77 96 06/24/21 08:26 128 H 06/24/21 08:10 98.7 F 128 H 18 118/89 97 Intake and Output 06/23/21 06/24/21 06/24/21 22:59 06:59 14:59 Other: Weight 104.326 kg Results 06/24/21 08:29 06/24/21 08:29 Cardiac Enzymes 06/24/21 06/24/21 06/24/21 Range/Units 08:29 08:29 11:15 AST 30 (17-59) U/L Troponin I <0.012 0.016 (0.000-0.034) ng/mL Coagulation 06/24/21 Range/Units 08:29 PT 10.3 (9.0-12.0) sec APTT 23.4 (22.0-30.0) sec CBC 06/24/21 Range/Units 08:29 WBC 5.2 (3.8-10.6) k/uL RBC 5.07 (4.30-5.90) m/uL Hgb 14.7 (13.0-17.5) gm/dL Hct 45.8 (39.0-53.0) % Plt Count 174 (150-450) k/uL Comprehensive Metabolic Panel 06/24/21 Range/Units 08:29 Sodium 136 L (137-145) mmol/L Potassium 4.2 (3.5-5.1) mmol/L Chloride 105 (98-107) mmol/L Carbon Dioxide 24 (22-30) mmol/L BUN 21 H (9-20) mg/dL Creatinine 1.00 (0.66-1.25) mg/dL Glucose 183 H (74-99) mg/dL Calcium 9.3 (8.4-10.2) mg/dL AST 30 (17-59) U/L ALT 18 (4-49) U/L Alkaline Phosphatase 71 (38-126) U/L Total Protein 6.9 (6.3-8.2) g/dL Albumin 3.7 (3.5-5.0) g/dL Intake and Output 06/23/21 06/24/21 06/24/21 22:59 06:59 14:59 Other: Weight 104.326 kg Patient Weight 06/25/21 06:59 Weight 104.326 kg 06/24/21 08:29 06/24/21 08:29
[2021-06-24] MEDS ORDERED: LOSARTAN 25 MG TAB PO SCH (12:00)
--- NOTE | 2021-06-24 12:10 | ED ---
Medical Decision Making - Medical Decision Making The original plan was to admit the patient, however he did convert spontaneously rather quickly with amiodarone. Dr. Toth came back down and evaluated and determined the patient is stable for discharge home with close follow-up at his office. He does not require admission per Dr. Toth. He will provided with prescriptions for Eliquis and home cardiac medications. Discussed with the patient. I notified Dr. Godinez the patient is being discharged home. They were in agreement with this plan. Patient was therefore discharged home in fair condition. - Lab Data Result diagrams: 06/24/21 08:29 06/24/21 08:29 Lab Results 06/24/21 06/24/21 06/24/21 Range/Units 08:29 08:29 08:29 WBC 5.2 (3.8-10.6) k/uL RBC 5.07 (4.30-5.90) m/uL Hgb 14.7 (13.0-17.5) gm/dL Hct 45.8 (39.0-53.0) % MCV 90.4 (80.0-100.0) fL MCH 29.1 (25.0-35.0) pg MCHC 32.2 (31.0-37.0) g/dL RDW 14.9 (11.5-15.5) % Plt Count 174 (150-450) k/uL MPV 7.1 Neutrophils % 64 % Lymphocytes % 23 % Monocytes % 7 % Eosinophils % 4 % Basophils % 1 % Neutrophils # 3.3 (1.3-7.7) k/uL Lymphocytes # 1.2 (1.0-4.8) k/uL Monocytes # 0.4 (0-1.0) k/uL Eosinophils # 0.2 (0-0.7) k/uL Basophils # 0.0 (0-0.2) k/uL PT 10.3 (9.0-12.0) sec INR 1.0 (<1.2) APTT 23.4 (22.0-30.0) sec Sodium 136 L (137-145) mmol/L Potassium 4.2 (3.5-5.1) mmol/L Chloride 105 (98-107) mmol/L Carbon Dioxide 24 (22-30) mmol/L Anion Gap 7 mmol/L BUN 21 H (9-20) mg/dL Creatinine 1.00 (0.66-1.25) mg/dL Est GFR (CKD-EPI)AfAm 85 (>60 ml/min/1.73 sqM) Est GFR (CKD-EPI)NonAf 73 (>60 ml/min/1.73 sqM) Glucose 183 H (74-99) mg/dL Calcium 9.3 (8.4-10.2) mg/dL Magnesium 1.9 (1.6-2.3) mg/dL Total Bilirubin 0.9 (0.2-1.3) mg/dL AST 30 (17-59) U/L ALT 18 (4-49) U/L Alkaline Phosphatase 71 (38-126) U/L Troponin I (0.000-0.034) ng/mL Total Protein 6.9 (6.3-8.2) g/dL Albumin 3.7 (3.5-5.0) g/dL Coronavirus (PCR) (Not Detectd) 06/24/21 06/24/21 Range/Units 08:29 08:29 WBC (3.8-10.6) k/uL RBC (4.30-5.90) m/uL Hgb (13.0-17.5) gm/dL Hct (39.0-53.0) % MCV (80.0-100.0) fL MCH (25.0-35.0) pg MCHC (31.0-37.0) g/dL RDW (11.5-15.5) % Plt Count (150-450) k/uL MPV Neutrophils % % Lymphocytes % % Monocytes % % Eosinophils % % Basophils % % Neutrophils # (1.3-7.7) k/uL Lymphocytes # (1.0-4.8) k/uL Monocytes # (0-1.0) k/uL Eosinophils # (0-0.7) k/uL Basophils # (0-0.2) k/uL PT (9.0-12.0) sec INR (<1.2) APTT (22.0-30.0) sec Sodium (137-145) mmol/L Potassium (3.5-5.1) mmol/L Chloride (98-107) mmol/L Carbon Dioxide (22-30) mmol/L Anion Gap mmol/L BUN (9-20) mg/dL Creatinine (0.66-1.25) mg/dL Est GFR (CKD-EPI)AfAm (>60 ml/min/1.73 sqM) Est GFR (CKD-EPI)NonAf (>60 ml/min/1.73 sqM) Glucose (74-99) mg/dL Calcium (8.4-10.2) mg/dL Magnesium (1.6-2.3) mg/dL Total Bilirubin (0.2-1.3) mg/dL AST (17-59) U/L ALT (4-49) U/L Alkaline Phosphatase (38-126) U/L Troponin I <0.012 (0.000-0.034) ng/mL Total Protein (6.3-8.2) g/dL Albumin (3.5-5.0) g/dL Coronavirus (PCR) Not Detected (Not Detectd) Disposition Clinical Impression: Atrial tachycardia, S/P placement of cardiac pacemaker Disposition: HOME SELF-CARE Condition: Good Is patient prescribed a controlled substance at d/c from ED?: No
[2021-06-24] MEDS: CLOPIDOGREL 75 MG TAB PO SCH ×2 (12:12→12:22)
[2021-06-24 12:39] VITALS: BP 125/73; RESP 16; TEMP 98.8
--- NOTE | 2021-06-24 13:00 | P.EPPROC ---
- EP Procedure Note Electrophysiology Procedure Note: Patient was admitted with an atrial tachycardia with tracking via the pacemaker at 130 bpm [address] of the [facility] medical biventricular pacemaker revealed an atrial tachycardia He was treated with IV amiodarone 300 mg over 2 hours He converted to sinus rhythm with ventricular pacing, biventricular He is doing well stable vitals are stable no dizziness no lightheadedness upon walking around in the room and to the bathroom Blood pressure 125/73 mmHg pulse rate in the 50s afebrile Plan discussed with the ER attending Discussed with the patient and his Discharge home on ELIQUIS 5 mg twice daily As well as continue Plavix and 5 mg daily Stop aspirin Continue beta blockers and other cardiac medications as before Follow-up in the device clinic in one week Device interrogation [facility] emergency medical technician basic was interrogated Device interrogation revealed an atrial tachycardia with atrial tracking at 130 beats a minute This responded to IV amiodarone single dose Plan no further IV or oral amiodarone Anticoagulate with ELIQUIS Continue ELIQUIS for about a month 5 mg twice a day Since this is an atrial tachycardia on a hold off on long-term anticoagulation In the interim he will stop aspirin but discontinue Plavix If he detect true atrial fibrillation in the future then we may re-anticoagulate Of note the patient has had a left atrial appendage occlusion intraoperatively during surgery
[2021-06-24] MEDS ORDERED: AMIODARONE 450 MG in DEXTROSE 5% IN WATER 250 ML IV SCH ×2 (17:15)
[2021-06-25] MEDS ORDERED: FUROSEMIDE 20 MG TAB PO SCH (09:00)
[2021-06-25] MEDS ORDERED: ATORVASTATIN 40 MG TAB PO SCH (09:00)
[2021-06-25] MEDS ORDERED: ASPIRIN 81 MG PO SCH (09:00)
== END 2021-06-24 12:32 | disposition home or self-care (01) ==
LOC: EC 08:08 → 3SCARD 09:44 → UNDOADMIN 09:44 → 3SCARD 10:47 → EC 12:32 → UNDODISIN 12:34
DX: R00.0 Tachycardia, unspecified (principal); Z20.822 Contact with and (suspected) exposure to COVID-19; E11.9 Type 2 diabetes mellitus without complications; I10 Essential (primary) hypertension; I25.10 Atherosclerotic heart disease of native coronary artery without angina pectoris; E78.5 Hyperlipidemia, unspecified; K21.9 Gastro-esophageal reflux disease without esophagitis; M19.90 Unspecified osteoarthritis, unspecified site; Z87.891 Personal history of nicotine dependence; Z79.02 Long term (current) use of antithrombotics/antiplatelets; Z79.84 Long term (current) use of oral hypoglycemic drugs; Z79.82 Long term (current) use of aspirin; Z79.899 Other long term (current) drug therapy; Z95.0 Presence of cardiac pacemaker
CPT/HCPCS: 99285; 96360; 96361 ×3; 36415; 93005; 80053; 83735; 84484; 85025; 85610; 85730; 87635; 71046; J0282

== ENCOUNTER 2021-06-25 15:34 | Inpatient (IN) | payer MEDICARE ==
[2021-06-25 16:33] LABS: Basophils % (A) 1 %; Eosinophils # (A) 0.3 k/uL (0-0.7); Eosinophils % (A) 4 %; HCT 42.1 % (39.0-53.0); Lymphocytes # (A) 1.2 k/uL (1.0-4.8); Lymphocytes % (A) 20 %; MCH 30.1 pg (25.0-35.0); MCHC 33.4 g/dL (31.0-37.0); MCV 90.3 fL (80.0-100.0); Mean Platelet Volume 7.6; Monocytes # (A) 0.5 k/uL (0-1.0); Monocytes % (A) 8 %; Neutrophils % (A) 66 %; Platelet Count 163 k/uL (150-450); RBC 4.66 m/uL (4.30-5.90); RDW 14.8 % (11.5-15.5)
[2021-06-25 16:41] LABS: Prothrombin Time 10.3 sec (9.0-12.0)
[2021-06-25 16:42] LABS: Albumin 3.9 g/dL (3.5-5.0); Calcium 9.5 mg/dL (8.4-10.2); Magnesium 1.8 mg/dL (1.6-2.3); Potassium 4.4 mmol/L (3.5-5.1); Total Bilirubin 0.6 mg/dL (0.2-1.3); Total Protein 7.2 g/dL (6.3-8.2)
[2021-06-25] MEDS ORDERED: DEXTROSE 5% IN WATER 100 ML with AMIODARONE 150 MG IV ONE (16:45)
[2021-06-25] MEDS ORDERED: SODIUM CHLORIDE 0.9% 500 ML 500 ML IV ONE (16:55)
[2021-06-25] MEDS ORDERED: AMIODARONE 360 MG in DEXTROSE 5% IN WATER 200 ML IV ONE ×2 (17:00)
--- NOTE | 2021-06-25 17:11 | ED ---
Arrhythmia/Palpitations HPI - General Chief Complaint: Arrhythmia/Palpitations Stated Complaint: arthymia, here yesterday Time Seen by Provider: 06/25/21 16:05 Source: patient Mode of arrival: ambulatory Limitations: no limitations - History of Present Illness Initial Comments: Patient is a 75-year-old male with past viral history of coronary artery disease status post bypass surgery, diabetes, aortic valve replacement, pacemaker placement on the he presents emergency department with palpitations. Patient was seen in the emergency department yesterday for similar complaint. He was found to have an atrial tachycardia with rapid firing of his ventricular pacemaker. He was given an amiodarone bolus and discharged home on Eliquis after his heart rate converted. Patient reported that around 2:00 today he began having palpitations once again. Has a sensation of anxiety. Denies having any chest pain or shortness of breath. Because his recurrent symptoms he presents again to the emergency department. States he has been taking his medi cations as directed. No other alleviating, precipitating or modifying factors - Related Data Home Medications Medication Instructions Recorded Confirmed Alfuzosin HCl [Alfuzosin HCl ER] 10 mg PO HS 11/13/20 06/24/21 Cholecalciferol [Vitamin D3 (25 25 mcg PO DAILY@1200 11/13/20 06/24/21 Mcg = 1000 Iu)] Multivit-Min/FA/Lycopen/Lutein 1 tab PO DAILY@1200 11/13/20 06/24/21 [Centrum Silver Tablet] Rosuvastatin Calcium [Crestor] 20 mg PO DAILY 12/02/20 06/24/21 5-Hydroxytryptophan (5-Htp) [5-Htp 50 mg PO DAILY@119906/18/21 06/24/21 (Natrol)] Furosemide [Lasix] 20 mg PO DAILY 06/18/21 06/24/21 Quercetin 500 mg PO DAILY@1200 06/18/21 06/24/21 Aspirin EC [Ecotrin Low Dose] 81 mg PO DAILY@119906/24/21 06/24/21 Metoprolol Succinate (ER) [Toprol 50 mg PO DAILY 06/24/21 06/24/21 Xl] metFORMIN HCL 1,000 mg PO W/SUPPER 06/24/21 06/24/21 metFORMIN HCL [Glucophage] 500 mg PO W/BRKFST 06/24/21 06/24/21 Previous Rx's Medication Instructions Recorded Clopidogrel [Plavix] 75 mg PO DAILY #30 tab 12/13/20 Losartan [Cozaar] 12.5 mg PO DAILY@1200 #30 tab 12/13/20 Allergies Allergy/AdvReac Type Severity Reaction Status Date / Time ibuprofen AdvReac TOLD NOT Verified 06/25/21 16:[address] BECAUSE OF HIS KIDNEYS Review of Systems ROS Statement: Those systems with pertinent positive or pertinent negative responses have been documented in the HPI. ROS Other: All systems not noted in ROS Statement are negative. 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 Toth H & P History of Any Multi-Drug Resistant Organisms: None Reported Past Surgical History: Adenoidectomy, Cardiac Valve Replacement, Coronary Bypa ss/CABG, EPS, Heart Catheterization, Pacemaker, Tonsillectomy Additional Past Surgical History / Comment(s): aortic valve replacement December 2020. pacemaker placed on 06/19/21 Past Anesthesia/Blood Transfusion Reactions: No Reported Reaction Date of Last Stent Placement:: December 2020 Past Psychological History: No Psychological Hx Reported Smoking Status: Former smoker Past Alcohol Use History: None Reported Past Drug Use History: None Reported - Past Family History Sister(s) Family Medical History: Cancer Additional Family Medical History / Comment(s): LUNG CANCER General Exam Limitations: no limitations General appearance: alert, in no apparent distress Head exam: Present: atraumatic, normocephalic, normal inspection Eye exam: Present: normal appearance, PERRL, EOMI. Absent: scleral icterus, conjunctival injection, periorbital swelling ENT exam: Present: normal exam, mucous membranes moist Neck exam: Present: normal inspection. Absent: tenderness, meningismus, lymph adenopathy Respiratory exam: Present: normal lung sounds bilaterally. Absent: respiratory distress, wheezes, rales, rhonchi, stridor Cardiovascular Exam: Present: normal rhythm, tachycardia, normal heart sounds. Absent: systolic murmur, diastolic murmur, rubs, gallop, clicks GI/Abdominal exam: Present: soft, normal bowel sounds. Absent: distended, tenderness, guarding, rebound, rigid Extremities exam: Present: normal inspection, full ROM, normal capillary refill. Absent: tenderness, pedal edema, joint swelling, calf tenderness Back exam: Present: normal inspection Neurological exam: Present: alert, oriented X3, CN II-XII intact Psychiatric exam: Present: normal affect, normal mood Skin exam: Present: warm, dry, intact, normal color. Absent: rash Course Vital Signs 06/25/21 06/25/21 16:02 16:45 Temperature 98.7 F Pulse Rate 128 H 128 H Respiratory 20 18 Rate Blood Pressure 108/70 95/72 O2 Sat by Pulse 98 Oximetry - Reevaluation(s) Reevaluation #1: Awaiting cardiology callback 06/25/21 17:16 Reevaluation #2: 06/25/21 17:[address] Nunez - will start amio 200 mg BID EKG Findings - EKG Comments: EKG Findings:: EKG demonstrates a ventricularly paced rhythm with a rate of 128. QRS 172. QTC of 586. Pacemaker is capturing appropriately. Repeat EKG done at 1730 demonstrates atrial sensed ventricularly paced rhythm with a rate of 64. LA interval 216. QRS 176. QTC of 491. Pacemaker captures appropriately Medical Decision Making - Medical Decision Making Upon arrival patient was placed in a trauma for. He is hooked up to continuous pulse ox and cardiac monitoring. A 12-lead EKG was obtained which demonstrates a ventricularly paced rhythm with a rate of 128. Patient's blood pressure is marginal. He was given a 500 bolus and started on amiodarone drip. We did page cardiology. Patient does convert while awaiting callback. Laboratory studies are completed and reviewed. Creatinine 1.6. Creatinine yesterday was 1.0. I did speak with Dr. Nunez who states that the patient may be transitioned to oral amiodarone. He will be placed in observation overnight. Spoke with Dr. Godinez who agreed to admit the patient. Patient remained in stable condition awaiting a bed on the floor - Lab Data Result diagrams: 06/25/21 16:25 06/25/21 16:25 Lab Results 06/25/21 06/25/21 06/25/21 Range/Units 16:25 16:25 16:25 WBC 6.0 (3.8-10.6) k/uL RBC 4.66 (4.30-5.90) m/uL Hgb 14.0 (13.0-17.5) gm/dL Hct 42.1 (39.0-53.0) % MCV 90.3 (80.0-100.0) fL MCH 30.1 (25.0-35.0) pg MCHC 33.4 (31.0-37.0) g/dL RDW 14.8 (11.5-15.5) % Plt Count 163 (150-450) k/uL MPV 7.6 Neutrophils % 66 % Lymphocytes % 20 % Monocytes % 8 % Eosinophils % 4 % Basophils % 1 % Neutrophils # 4.0 (1.3-7.7) k/uL Lymphocytes # 1.2 (1.0-4.8) k/uL Monocytes # 0.5 (0-1.0) k/uL Eosinophils # 0.3 (0-0.7) k/uL Basophils # 0.0 (0-0.2) k/uL PT 10.3 (9.0-12.0) sec INR 1.0 (<1.2) APTT 24.0 (22.0-30.0) sec Sodium 135 L (137-145) mmol/L Potassium 4.4 (3.5-5.1) mmol/L Chloride 102 (98-107) mmol/L Carbon Dioxide 23 (22-30) mmol/L Anion Gap 10 mmol/L BUN 27 H (9-20) mg/dL Creatinine 1.64 H (0.66-1.25) mg/dL Est GFR (CKD-EPI)AfAm 47 (>60 ml/min/1.73 sqM) Est GFR (CKD-EPI)NonAf 40 (>60 ml/min/1.73 sqM) Glucose 257 H (74-99) mg/dL Calcium 9.5 (8.4-10.2) mg/dL Magnesium 1.8 (1.6-2.3) mg/dL Total Bilirubin 0.6 (0.2-1.3) mg/dL AST 27 (17-59) U/L ALT 18 (4-49) U/L Alkaline Phosphatase 65 (38-126) U/L Troponin I (0.000-0.034) ng/mL Total Protein 7.2 (6.3-8.2) g/dL Albumin 3.9 (3.5-5.0) g/dL 06/25/21 Range/Units 16:25 WBC (3.8-10.6) k/uL RBC (4.30-5.90) m/uL Hgb (13.0-17.5) gm/dL Hct (39.0-53.0) % MCV (80.0-100.0) fL MCH (25.0-35.0) pg MCHC (31.0-37.0) g/dL RDW (11.5-15.5) % Plt Count (150-450) k/uL MPV Neutrophils % % Lymphocytes % % Monocytes % % Eosinophils % % Basophils % % Neutrophils # (1.3-7.7) k/uL Lymphocytes # (1.0-4.8) k/uL Monocytes # (0-1.0) k/uL Eosinophils # (0-0.7) k/uL Basophils # (0-0.2) k/uL PT (9.0-12.0) sec INR (<1.2) APTT (22.0-30.0) sec Sodium (137-145) mmol/L Potassium (3.5-5.1) mmol/L Chloride (98-107) mmol/L Carbon Dioxide (22-30) mmol/L Anion Gap mmol/L BUN (9-20) mg/dL Creatinine (0.66-1.25) mg/dL Est GFR (CKD-EPI)AfAm (>60 ml/min/1.73 sqM) Est GFR (CKD-EPI)NonAf (>60 ml/min/1.73 sqM) Glucose (74-99) mg/dL Calcium (8.4-10.2) mg/dL Magnesium (1.6-2.3) mg/dL Total Bilirubin (0.2-1.3) mg/dL AST (17-59) U/L ALT (4-49) U/L Alkaline Phosphatase (38-126) U/L Troponin I 0.020 (0.000-0.034) ng/mL Total Protein (6.3-8.2) g/dL Albumin (3.5-5.0) g/dL Disposition Clinical Impression: Atrial tachycardia, S/P placement of cardiac pacemaker, YESICA (acute kidney injury) Disposition: ADMITTED IP TO THIS HOSP Condition: Stable Is patient prescribed a controlled substance at d/c from ED?: No Referrals: López Aden DO [Primary Care Provider] - 1-2 days Decision to Admit Reason: Admit from EC Decision Date: 06/25/21 Decision Time: 17:16
[2021-06-25] MEDS ORDERED: NALOXONE 0.4 MG/ML 1 ML VIAL IV PRN (18:00)
[2021-06-25] MEDS ORDERED: metFORMIN 500 MG TAB PO SCH (19:00)
[2021-06-25] MEDS ORDERED: ATORVASTATIN 40 MG TAB PO SCH (19:00)
[2021-06-25 20:12] LABS: Glucose,Whole Blood 170 mg/dL (75-99)
[2021-06-25] MEDS ORDERED: TAMSULOSIN 0.4 MG CAP.ER.24H PO SCH (21:00)
[2021-06-25] MEDS: APIXABAN 5 MG TAB PO SCH (21:16)
[2021-06-25] MEDS: AMIODARONE 200 MG TAB PO SCH (21:18)
[2021-06-25] MEDS ORDERED: AMIODARONE 450 MG in DEXTROSE 5% IN WATER 250 ML IV SCH ×2 (23:00)
[2021-06-25] MEDS ORDERED: ACETAMINOPHEN TAB 500 MG TAB PO PRN (23:17)
[2021-06-26 05:57] LABS: Basophils # (A) 0.1 k/uL (0-0.2); Basophils % (A) 1 %; Eosinophils # (A) 0.3 k/uL (0-0.7); Eosinophils % (A) 4 %; HCT 43.5 % (39.0-53.0); HGB 14.1 gm/dL (13.0-17.5); Lymphocytes # (A) 1.8 k/uL (1.0-4.8); Lymphocytes % (A) 26 %; MCH 29.6 pg (25.0-35.0); MCHC 32.3 g/dL (31.0-37.0); MCV 91.5 fL (80.0-100.0); Mean Platelet Volume 7.3; Monocytes # (A) 0.6 k/uL (0-1.0); Monocytes % (A) 8 %; Neutrophils # (A) 4.2 k/uL (1.3-7.7); Neutrophils % (A) 60 %; Platelet Count 177 k/uL (150-450); RBC 4.76 m/uL (4.30-5.90); RDW 14.9 % (11.5-15.5); WBC 7.1 k/uL (3.8-10.6)
[2021-06-26 06:11] LABS: Glucose,Whole Blood 134 mg/dL (75-99)
[2021-06-26 07:16] VITALS: BP 149/87
[2021-06-26] MEDS ORDERED: metFORMIN 500 MG TAB PO SCH (07:30)
[2021-06-26 08:33] VITALS: PULSE 60; RESP 18; TEMP 97.7
[2021-06-26] MEDS: AMIODARONE 200 MG TAB PO SCH (08:33)
[2021-06-26] MEDS: APIXABAN 5 MG TAB PO SCH (08:33)
[2021-06-26 09:00] LABS: Calcium 9.2 mg/dL (8.4-10.2); Potassium 4.1 mmol/L (3.5-5.1)
[2021-06-26] MEDS ORDERED: CLOPIDOGREL 75 MG TAB PO SCH (09:00)
[2021-06-26] MEDS ORDERED: FUROSEMIDE 20 MG TAB PO SCH (09:00)
[2021-06-26] MEDS ORDERED: ATORVASTATIN 40 MG TAB PO SCH (09:00)
--- NOTE | 2021-06-26 11:23 | P.CRDCN ---
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 Toth. We have been asked to see in consultation for atrial tachycardia. Patient presents to the emergency department with elevated heart rate. He states that he had no symptoms yesterday however checked his blood pressure and heart rate at home and noted to his heart rate be fast. In present to the emergency department. EKG revealed ventricular paced rhythm with a heart rate 128, similar EKG as on 06/24/21 when patient presented with the same complaint. Patient was given IV amiodarone 150mg x1 and started on a 1mg/min drip and converted back with heart rates in the 60s. On 06/24/21 Device interrogation revealed an atrial tachycardia with atrial tracking at 130 beats a minute. DIAGNOSTICS Telemetry tracings indicate V paced Chest xray no acute cardiopulmonary process. Echo 04/2021- 55%, mild LVH, moderate LAE, AV prosthesis , moderate MR, mild to moderate TR, RVPS 47mmHg Laboratory reviewed CBC unremarkable, sodium 137, potassium 4.1, BUN 23, serum creatinine 1.1, troponin negative 3 REVIEW OF SYSTEMS At the time of my exam: CONSTITUTIONAL: Denies fever or chills. CARDIOVASCULAR: Denies chest pain, shortness of breath, orthopnea, PND or palpitations. RESPIRATORY: Denies cough. GASTROINTESTINAL: Denies abdominal pain, diarrhea, constipation, nausea or vomiting. MUSCULOSKELETAL: Denies myalgias. NEUROLOGIC: Denies numbness, tingling, headacbe or weakness. ENDOCRINE: Denies fatigue, weight change, polydipsia or polyurina. GENITOURINARY: Denies burning, hematuria or urgency with micturation. HEMATOLOGIC: Denies history of anemia or bleeding. PHYSICAL EXAMINATION Vitals reviewed CONSTITUTIONAL: No apparent distress. HEENT: Head is normocephalic. Pupils are equal, round. Sclerae anicteric. Mucous membranes of the mouth are moist. No JVD. No carotid bruit. CHEST EXAMINATION: Lungs are clear to auscultation. No chest wall tenderness is noted on palpation or with deep breathing. HEART EXAMINATION: Regular rate and rhythm. S1, S2 heard. No murmurs, gallops or rub. ABDOMEN: Soft, nontender. Positive bowel sounds. EXTREMITIES: 2+ peripheral pulses, no lower extremity edema and no calf tenderness. NEUROLOGIC EXAMINATION: Patient is awake, alert and oriented x3. 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 Toth. Patient with an appointment on 06/27/21. Nurse Practitioner note has been reviewed, I agree with a documented findings and plan of care. Patient was seen and examined. 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 Toth H & P History of Any Multi-Drug Resistant Organisms: None Reported Past Surgical History: Adenoidectomy, Cardiac Valve Replacement, Coronary Bypass/CABG, EPS, Heart Catheterization, Pacemaker, Tonsillectomy Additional Past Surgical History / Comment(s): aortic valve replacement December 2020. pacemaker placed on 06/19/21 Past Anesthesia/Blood Transfusion Reactions: No Reported Reaction Date of Last Stent Placement:: December 2020 Type of Cardiac Device: Biventricular Pacemaker Device Placement Date:: 06/19/21 Past Psychological History: No Psychological Hx Reported Smoking Status: Former smoker Past Alcohol Use History: None Reported Additional Past Alcohol Use History / Comment(s): STARTED SMOKING AT AGE 15 QUIT 1975 SMOKED 1PPD Past Drug Use History: None Reported - Past Family History Sister(s) Family Medical History: Cancer Additional Family Medical History / Comment(s): LUNG CANCER Medications and Allergies Home Medications Medication Instructions Recorded Confirmed Type Alfuzosin HCl [Alfuzosin HCl ER] 10 mg PO HS 11/13/20 06/25/21 History Cholecalciferol [Vitamin D3 (25 25 mcg PO DAILY@1200 11/13/20 06/25/21 History Mcg = 1000 Iu)] Multivit-Min/FA/Lycopen/Lutein 1 tab PO DAILY@1200 11/13/20 06/25/21 History [Centrum Silver Tablet] Rosuvastatin Calcium [Crestor] 20 mg PO DAILY 12/02/20 06/25/21 History Clopidogrel [Plavix] 75 mg PO DAILY #30 tab 12/13/20 06/25/21 Rx Losartan [Cozaar] 12.5 mg PO DAILY@1200 #30 tab 12/13/20 06/25/21 Rx 5-Hydroxytryptophan (5-Htp) [5-Htp 50 mg PO DAILY@1200 06/18/21 06/25/21 History (Natrol)] Furosemide [Lasix] 20 mg PO DAILY 06/18/21 06/25/21 History Quercetin 500 mg PO DAILY@1200 06/18/21 06/25/21 History Metoprolol Succinate (ER) [Toprol 50 mg PO DAILY 06/24/21 06/25/21 History Xl] metFORMIN HCL 1,000 mg PO W/SUPPER 06/24/21 06/25/21 History metFORMIN HCL [Glucophage] 500 mg PO W/BRKFST 06/24/21 06/25/21 History Apixaban [Eliquis] 5 mg PO BID 06/25/21 06/25/21 History Allergies Allergy/AdvReac Type Severity Reaction Status Date / Time ibuprofen AdvReac TOLD NOT Verified 06/25/21 18:[address] BECAUSE OF HIS KIDNEYS Physical Exam Vitals: Vital Signs Temp Pulse Pulse Resp BP BP Pulse Ox 06/26/21 08:00 97.7 F 60 18 149/87 95 06/26/21 07:16 98.4 F 53 L 16 149/87 96 06/26/21 03:54 98.0 F 66 18 132/78 96 06/26/21 00:00 97.2 F L 58 L 16 149/60 96 06/25/21 20:00 98.1 F 61 18 143/78 97 06/25/21 18:46 64 18 134/74 98 06/25/21 16:45 128 H 18 95/72 06/25/21 16:02 98.7 F 128 H 20 108/70 98 Intake and Output 06/25/21 06/26/21 06/26/21 22:59 06:59 14:59 Output Total 1000 1150 Balance -1000 -1150 Output: Urine 1000 1150 Other: Voiding Method Indwelling Catheter Indwelling Catheter Indwelling Catheter Weight 104.326 kg Results 06/26/21 05:21 06/26/21 08:18 Cardiac Enzymes 06/25/21 06/25/21 06/25/21 Range/Units 16:25 16:25 21:05 AST 27 (17-59) U/L Troponin I 0.020 0.024 (0.000-0.034) ng/mL 06/25/21 Range/Units 23:35 AST (17-59) U/L Troponin I 0.024 (0.000-0.034) ng/mL Coagulation 06/25/21 Range/Units 16:25 PT 10.3 (9.0-12.0) sec APTT 24.0 (22.0-30.0) sec CBC 06/25/21 06/26/21 Range/Units 16:25 05:21 WBC 6.0 7.1 (3.8-10.6) k/uL RBC 4.66 4.76 (4.30-5.90) m/uL Hgb 14.0 14.1 (13.0-17.5) gm/dL Hct 42.1 43.5 (39.0-53.0) % Plt Count 163 177 (150-450) k/uL Comprehensive Metabolic Panel 06/25/21 06/26/21 Range/Units 16:25 08:18 Sodium 135 L 137 (137-145) mmol/L Potassium 4.4 4.1 (3.5-5.1) mmol/L Chloride 102 104 (98-107) mmol/L Carbon Dioxide 23 26 (22-30) mmol/L BUN 27 H 23 H (9-20) mg/dL Creatinine 1.64 H 1.17 (0.66-1.25) mg/dL Glucose 257 H 175 H (74-99) mg/dL Calcium 9.5 9.2 (8.4-10.2) mg/dL AST 27 (17-59) U/L ALT 18 (4-49) U/L Alkaline Phosphatase 65 (38-126) U/L Total Protein 7.2 (6.3-8.2) g/dL Albumin 3.9 (3.5-5.0) g/dL Current Medications Generic Name Dose Route Start Last Admin Trade Name Freq PRN Reason Stop Dose Admin Acetaminophen 500 mg 06/25/21 23:17 06/25/21 23:34 Acetaminophen Tab 500 Mg Tab PO 500 mg Q6HR PRN Administration Fever and/ or Pain Amiodarone HCl 200 mg 06/25/21 21:00 06/26/21 08:33 Amiodarone 200 Mg Tab PO 200 mg BID PHYLLIS Administration Apixaban 5 mg 06/25/21 21:00 06/26/21 08:33 Apixaban 5 Mg Tab PO 5 mg BID PHYLLIS Administration Protocol Atorvastatin Calcium 40 mg 06/26/21 09:00 06/26/21 08:33 Atorvastatin 40 Mg Tab PO 40 mg DAILY PHYLLIS Administration Cholecalciferol 25 mcg 06/26/21 12:00 Cholecalciferol 25 Mcg (1000 Iu) Tablet PO DAILY@1200 [facility] Clopidogrel Bisulfate 75 mg 06/26/21 09:00 06/26/21 08:33 Clopidogrel 75 Mg Tab PO 75 mg DAILY PHYLLIS Administration Furosemide 20 mg 06/26/21 09:00 06/26/21 08:33 Furosemide 20 Mg Tab PO 20 mg DAILY PHYLLIS Administration Losartan Potassium 12.5 mg 06/26/21 12:00 Losartan 25 Mg Tab PO DAILY@1200 [facility] Metformin HCl 500 mg 06/26/21 07:30 06/26/21 06:15 Metformin 500 Mg Tab PO 500 mg W/BRKFST PHYLLIS Administration Metformin HCl 1,000 mg 06/25/21 19:00 06/25/21 20:43 Metformin 500 Mg Tab PO 1,000 mg W/SUPPER PHYLLIS Administration Multivitamins 1 each 06/26/21 12:00 Multivitamins, Thera 1 Each Tab PO DAILY@1200 [facility] Naloxone HCl 0.2 mg 06/25/21 18:00 Naloxone 0.4 Mg/Ml 1 Ml Vial IV Q2M PRN Opioid Reversal Quercetin 500 Mg 500 mg 06/26/21 12:00 PO DAILY@1200 PHYLLIS Tamsulosin HCl 0.4 mg 06/25/21 21:00 06/25/21 21:16 Tamsulosin 0.4 Mg Cap.Er.24h PO 0.4 mg HS [facility] Administration Intake and Output 06/25/21 06/26/21 06/26/21 22:59 06:59 14:59 Output Total 1000 1150 Balance -1000 -1150 Output: Urine 1000 1150 Other: Voiding Method Indwelling Catheter Indwelling Catheter Indwelling Catheter Weight 104.326 kg 06/26/21 05:21 06/26/21 08:18
[2021-06-26] MEDS ORDERED: HYDROXYTRYPTOPHAN 50 MG PO SCH (12:00)
[2021-06-26] MEDS ORDERED: CHOLECALCIFEROL 25 MCG (1000 IU) TABLET PO SCH (12:00)
[2021-06-26] MEDS ORDERED: LOSARTAN 25 MG TAB PO SCH (12:00)
[2021-06-26] MEDS ORDERED: MULTIVITAMINS, THERA 1 EACH TAB PO SCH (12:00)
--- NOTE | 2021-06-26 19:19 | P.HPIM ---
History of Present Illness H&P Date: 06/26/21 Chief Complaint: Increased heart rate This is a pleasant 75-year-old patient who follows with Dr. Aden. Chronic stable medical conditions include CAD with history of bypass 2020., Diabetes, GERD, hypertension, hyperlipidemia, osteoarthritis, BPH for which she has a IDC and due for surgery by Dr. Loomis coming up. Patient also aortic valve replacement in December 2020 and a pacemaker was placed on 06/19/2021 for severe 18 AV consuelo block with Mobitz type II and bradycardia. Patient came to the ER 2 days ago and found his heart rate to be elevated. Patient was started on eliquis was given a bolus of amiodarone. Patient spontaneously cardioverted was discharged from the ER. Patient yesterday again notice his heart rate to be up. He was asymptomatic. It was reading up to 1 120s. Decided to come in. Was given a further bolus of amiodarone. No chest pain or palpitation or dizziness no shortness of breath. No fever no chills Review of systems: GEN.: None EYES: None HEENT: None NECK: None RESPIRATORY: None CARDIOVASCULAR: None GASTROINTESTINAL: None GENITOURINARY: Tompkins catheter MUSCULOSKELETAL: Joint pains LYMPHATICS: None HEMATOLOGICAL: None PSYCHIATRY: None NEUROLOGICAL: None Past medical history to include: CAD with bypass and December 2020, diabetes, GERD, hypertension, hyperlipidemia, osteomyelitis, BPH with IDC, aortic valve replacement December 2020, open pacemaker on 06/19/2021 for AV consuelo block second-degree Social history: Patient smoked for about 16 years stopped in 9075. One pack a day. No alcohol. . Family history: Lung cancer Physical examination: VITAL SIGNS: 98.7, 128, 20, 108/70, 98% room air upon presentation GENERAL: BMI 31.2, sitting up in a chair, awake, comfortable. EYES: Pupils equal. Conjunctiva normal. HEENT: External appearance of nose and ears normal, oral cavity grossly normal. NECK: JVD not raised; masses not palpable. HEART: First and second heart sounds are normal; no edema. LUNGS: Respiratory rate normal; clear to auscultation. Pacemaker ABDOMEN: Soft, nontender, liver spleen not palpable, no masses palpable. Indwelling catheter PSYCH: Alert and oriented x3; mood and affect normal. MUSCULOSKELETAL:No Clubbing/cyanosis;muscles-grossly intact. Evidence of OA NEUROLOGICAL: Cranial nerves grossly intact; no facial asymmetry, power and sensation grossly intact. LYMPHATICS: No lymph nodes palpable in the axilla and neck INVESTIGATIONS, reviewed in the clinical context: White count 7.1 hemoglobin 14.1 platelets 177 potassium 4.1 BUN 23 creatinine 1.17 EKG tracing personally reviewed by me-medical or paced rhythm. Rate 128. Assessment and plan: -Paroxysmal atrial fibrillation with rapid ventricular rate on presentation. Patient was here 2 days ago. Was given IV amiodarone bolus. Also on Toprol-XL. Given further amiodarone. He noted back to sinus rhythm. --CAD with a history of bypass and December 2020 Cervix, Lipitor, Toprol-XL -Quadruple coronary bypass and aortic valve replacement with bioprosthetic valve on December 07 -Hyperlipidemia Crestor 20 mg a day -Chronic congestive heart failure from ischemic cardiomyopathy, diastolic dysfunction EF 50-60%- Lasix 20 mg a day. -Diabetes mellitus type 2 on oral hypoglycemic, . Glucophage thousand milligrams with supper and 500 mg breakfast. Follow Accu- Chek -BPH,. Outflow obstruction. Continue alfuzosin. Has a IDC. Pending surgery by Dr. Fitch Patient was placed on IV amiodarone drip again. Reverted to sinus rhythm. Cardiology was consulted. Home medications resumed. Care was discussed with the patient the bedside. 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 Toth H & P History of Any Multi-Drug Resistant Organisms: None Reported Past Surgical History: Adenoidectomy, Cardiac Valve Replacement, Coronary Bypass/CABG, EPS, Heart Catheterization, Pacemaker, Tonsillectomy Additional Past Surgical History / Comment(s): aortic valve replacement December 2020. pacemaker placed on 06/19/21 Past Anesthesia/Blood Transfusion Reactions: No Reported Reaction Date of Last Stent Placement:: December 2020 Type of Cardiac Device: Biventricular Pacemaker Device Placement Date:: 06/19/21 Past Psychological History: No Psychological Hx Reported Smoking Status: Former smoker Past Alcohol Use History: None Reported Additional Past Alcohol Use History / Comment(s): STARTED SMOKING AT AGE 15 QUIT 1975 SMOKED 1PPD Past Drug Use History: None Reported - Past Family History Sister(s) Family Medical History: Cancer Additional Family Medical History / Comment(s): LUNG CANCER Medications and Allergies Home Medications Medication Instructions Recorded Confirmed Type Alfuzosin HCl [Alfuzosin HCl ER] 10 mg PO HS 11/13/20 06/25/21 History Cholecalciferol [Vitamin D3 (25 25 mcg PO DAILY@1200 11/13/20 06/25/21 History Mcg = 1000 Iu)] Multivit-Min/FA/Lycopen/Lutein 1 tab PO DAILY@1200 11/13/20 06/25/21 History [Centrum Silver Tablet] Rosuvastatin Calcium [Crestor] 20 mg PO DAILY 12/02/20 06/25/21 History Clopidogrel [Plavix] 75 mg PO DAILY #30 tab 12/13/20 06/25/21 Rx Losartan [Cozaar] 12.5 mg PO DAILY@1200 #30 tab 12/13/20 06/25/21 Rx 5-Hydroxytryptophan (5-Htp) [5-Htp 50 mg PO DAILY@1200 06/18/21 06/25/21 History (Natrol)] Furosemide [Lasix] 20 mg PO DAILY 06/18/21 06/25/21 History Quercetin 500 mg PO DAILY@1200 06/18/21 06/25/21 History Metoprolol Succinate (ER) [Toprol 50 mg PO DAILY 06/24/21 06/25/21 History XL] metFORMIN HCL 1,000 mg PO W/SUPPER 06/24/21 06/25/21 History metFORMIN HCL [Glucophage] 500 mg PO W/BRKFST 06/24/21 06/25/21 History Apixaban [Eliquis] 5 mg PO BID 06/25/21 06/25/21 History Amiodarone [Cordarone] 200 mg PO BID 60 Days #120 tab 06/26/21 Rx Allergies Allergy/AdvReac Type Severity Reaction Status Date / Time ibuprofen AdvReac TOLD NOT Verified 06/25/21 18:[address] BECAUSE OF HIS KIDNEYS Physical Exam Vitals: Vital Signs Temp Pulse Pulse Resp BP BP Pulse Ox 06/26/21 08:00 97.7 F 60 18 149/87 95 06/26/21 07:16 98.4 F 53 L 16 149/87 96 06/26/21 03:54 98.0 F 66 18 132/78 96 06/26/21 00:00 97.2 F L 58 L 16 149/60 96 06/25/21 20:00 98.1 F 61 18 143/78 97 06/25/21 18:46 64 18 134/74 98 06/25/21 16:45 128 H 18 95/72 06/25/21 16:02 98.7 F 128 H 20 108/70 98 Intake and Output 06/25/21 06/26/21 06/26/21 22:59 06:59 14:59 Output Total 1000 1150 Balance -1000 -1150 Output: Urine 1000 1150 Other: Voiding Method Indwelling Catheter Indwelling Catheter Indwelling Catheter Weight 104.326 kg Results CBC & Chem 7: 06/26/21 05:21 06/26/21 08:18 Labs: Abnormal Lab Results - Last 24 Hours (Table) 06/25/21 06/25/21 06/26/21 Range/Units 16:25 20:11 06:06 Sodium 135 L (137-145) mmol/L BUN 27 H (9-20) mg/dL Creatinine 1.64 H (0.66-1.25) mg/dL Glucose 257 H (74-99) mg/dL POC Glucose (mg/dL) 170 H 134 H (75-99) mg/dL 06/26/21 Range/Units 08:18 Sodium (137-145) mmol/L BUN 23 H (9-20) mg/dL Creatinine (0.66-1.25) mg/dL Glucose 175 H (74-99) mg/dL POC Glucose (mg/dL) (75-99) mg/dL Thrombosis Risk Factor Assmnt - Choose All That Apply Any of the Below Risk Factors Present?: No Each Risk Factor Represents 3 Points: Age 75 years or older Other congenital or acquired thrombophilia - If yes, enter type in comment: No Thrombosis Risk Factor Assessment Total Risk Factor Score: 3 Thrombosis Risk Factor Assessment Level: Moderate Risk
--- NOTE | 2021-06-26 19:23 | P.DS ---
Providers Date of admission: 06/25/21 18:00 Expected date of discharge: 06/26/21 Attending physician: Jackson Godinez Consults: 06/25/21 18:03 Consult Physician Urgent Consulting Provider: [facility] Consult Reason/Comments: atrial tachycardia Do you want consulting provider notified?: Already Contacted Primary care physician: López [place] Hospital Course: Chief Complaint: Increased heart rate This is a pleasant 75-year-old patient who follows with Dr. Aden. Chronic stable medical conditions include CAD with history of bypass 2020., Diabetes, GERD, hypertension, hyperlipidemia, osteoarthritis, BPH for which she has a IDC and due for surgery by Dr. Gan coming up. Patient also aortic valve replacement in December 2020 and a pacemaker was placed on 06/19/2021 for severe 18 AV consuelo block with Mobitz type II and bradycardia. Patient came to the ER 2 days ago and found his heart rate to be elevated. Patient was started on fabio bill was given a bolus of amiodarone. Patient spontaneously cardioverted was discharged from the ER. Patient yesterday again notice his heart rate to be up. He was asymptomatic. It was reading up to 1 120s. Decided to come in. Was given a further bolus of amiodarone. No chest pain or palpitation or dizziness no shortness of breath. No fever no chills Patient received a drip of IV amiodarone and patient converted back to sinus rhythm. Patient has known underlying atrial fibrillation. Seen by cardiology and cleared. Consultation: Dr. Alcazar from cardiology Past medical history to include: CAD with bypass and December 2020, diabetes, GERD, hypertension, hyperlipidemia, osteomyelitis, BPH with IDC, aortic valve replacement December 2020, open pacemaker on 06/19/2021 for AV consuelo block second-degree Social history: Patient smoked for about 16 years stopped in 9075. One pack a day. No alcohol. . Family history: Lung cancer Physical examination: VITAL SIGNS: 97.7, 60, 16, 149/87, 95% room air GENERAL:, sitting up in a chair, awake, comfortable. EYES: Pupils equal. Conjunctiva normal. HEENT: External appearance of nose and ears normal, oral cavity grossly normal. NECK: JVD not raised; masses not palpable. HEART: First and second heart sounds are normal; no edema. LUNGS: Respiratory rate normal; clear to auscultation. Pacemaker ABDOMEN: Soft, nontender, liver spleen not palpable, no masses palpable. Indwelling catheter PSYCH: Alert and oriented x3; mood and affect normal. MUSCULOSKELETAL:No Clubbing/cyanosis;muscles-grossly intact. Evidence of OA INVESTIGATIONS, reviewed in the clinical context: White count 7.1 hemoglobin 14.1 platelets 177 potassium 4.1 BUN 23 creatinine 1.17 EKG tracing personally reviewed by me-medical or paced rhythm. Rate 128. Assessment and plan: -Paroxysmal atrial fibrillation with rapid ventricular rate on presentation. Converted to sinus rhythm. Patient was here 2 days ago. Was given IV amiodarone bolus. Also on Toprol-XL. Given further amiodarone. Converted to sinus rhythm. --CAD with a history of bypass and December 2020 Cervix, Lipitor, Toprol-XL -Quadruple coronary bypass and aortic valve replacement with bioprosthetic valve on December 07 -Hyperlipidemia Crestor 20 mg a day -Chronic congestive heart failure from ischemic cardiomyopathy, diastolic dysfunction EF 50-60%- Lasix 20 mg a day. -Diabetes mellitus type 2 on oral hypoglycemic, . Glucophage thousand milligrams with supper and 500 mg breakfast. Follow Accu- Chek -BPH,. Outflow obstruction. Continue alfuzosin. Has a IDC. Pending surgery by Dr. Fitch Disposition: Home Patient Condition at Discharge: Stable Plan - Discharge Summary Discharge Rx Participant: No New Discharge Prescriptions: New Amiodarone [Cordarone] 200 mg PO BID 60 Days #120 tab Continue Cholecalciferol [Vitamin D3 (25 Mcg = 1000 Iu)] 25 mcg PO DAILY@1200 Multivit-Min/FA/Lycopen/Lutein [Centrum Silver Tablet] 1 tab PO DAILY@1200 Clopidogrel [Plavix] 75 mg PO DAILY #30 tab Furosemide [Lasix] 20 mg PO DAILY 5-Hydroxytryptophan (5-Htp) [5-Htp (Natrol)] 50 mg PO DAILY@1200 Alfuzosin HCl [Alfuzosin HCl ER] 10 mg PO HS Rosuvastatin Calcium [Crestor] 20 mg PO DAILY Losartan [Cozaar] 12.5 mg PO DAILY@1200 #30 tab Quercetin 500 mg PO DAILY@1200 Metoprolol Succinate (ER) [Toprol XL] 50 mg PO DAILY metFORMIN HCL 1,000 mg PO W/SUPPER metFORMIN HCL [Glucophage] 500 mg PO W/BRKFST Apixaban [Eliquis] 5 mg PO BID Discharge Medication List Alfuzosin HCl [Alfuzosin HCl ER] 10 mg PO HS 11/13/20 [History] Cholecalciferol [Vitamin D3 (25 Mcg = 1000 Iu)] 25 mcg PO DAILY@1200 11/13/20 [ History] Multivit-Min/FA/Lycopen/Lutein [Centrum Silver Tablet] 1 tab PO DAILY@1200 11/13/20 [History] Rosuvastatin Calcium [Crestor] 20 mg PO DAILY 12/02/20 [History] Clopidogrel [Plavix] 75 mg PO DAILY #30 tab 12/13/20 [Rx] Losartan [Cozaar] 12.5 mg PO DAILY@1200 #30 tab 12/13/20 [Rx] 5-Hydroxytryptophan (5-Htp) [5-Htp (Natrol)] 50 mg PO DAILY@1200 06/18/21 [History] Furosemide [Lasix] 20 mg PO DAILY 06/18/21 [History] Quercetin 500 mg PO DAILY@1200 06/18/21 [History] Metoprolol Succinate (ER) [Toprol XL] 50 mg PO DAILY 06/24/21 [History] metFORMIN HCL 1,000 mg PO W/SUPPER 06/24/21 [History] metFORMIN HCL [Glucophage] 500 mg PO W/BRKFST 06/24/21 [History] Apixaban [Eliquis] 5 mg PO BID 06/25/21 [History] Amiodarone [Cordarone] 200 mg PO BID 60 Days #120 tab 06/26/21 [Rx] Follow up Appointment(s)/Referral(s): Michael Toth MD [STAFF PHYSICIAN] - 06/27/21 López Aden DO [Primary Care Provider] - 1-2 days (Patient requested to make own follow-up appointment) Patient Instructions/Handouts: Atrial Tachycardia (DC) Discharge Disposition: HOME SELF-CARE
== END 2021-06-26 13:08 | disposition home or self-care (01) | DRG 309 ==
LOC: EC 15:34 → 3SCARD 18:00
PROVIDERS: ADMIT Hospitalist; ATTEND Hospitalist
DX: I48.0 Paroxysmal atrial fibrillation (principal); I50.32 Chronic diastolic (congestive) heart failure; N17.9 Acute kidney failure, unspecified; Z20.822 Contact with and (suspected) exposure to COVID-19; I47.1 Supraventricular tachycardia; E11.9 Type 2 diabetes mellitus without complications; I11.0 Hypertensive heart disease with heart failure; I25.10 Atherosclerotic heart disease of native coronary artery without angina pectoris; E78.5 Hyperlipidemia, unspecified; I25.5 Ischemic cardiomyopathy; K21.9 Gastro-esophageal reflux disease without esophagitis; M19.90 Unspecified osteoarthritis, unspecified site; N40.0 Benign prostatic hyperplasia without lower urinary tract symptoms; Z79.01 Long term (current) use of anticoagulants; Z79.02 Long term (current) use of antithrombotics/antiplatelets; Z79.82 Long term (current) use of aspirin; Z79.84 Long term (current) use of oral hypoglycemic drugs; Z79.899 Other long term (current) drug therapy; Z80.1 Family history of malignant neoplasm of trachea, bronchus and lung; Z87.891 Personal history of nicotine dependence; Z95.0 Presence of cardiac pacemaker; Z95.1 Presence of aortocoronary bypass graft; Z95.3 Presence of xenogenic heart valve; Z88.6 Allergy status to analgesic agent
CPT/HCPCS: 36415; 80048; 80053; 83735; 84484; 85025; 85610; 85730; 87635; 93005; 99285

== ENCOUNTER → 2021-07-18 | Outpatient (CLI) | payer MEDICARE ==
--- NOTE | 2021-07-18 13:18 | CT ---
EXAMINATION TYPE: CT pelvis wo con DATE OF EXAM: 07/18/2021 COMPARISON: None HISTORY: 76-year-old male R31.1, Microscopic hematuria, upcoming prostate surgery. TECHNIQUE: Contiguous axial scanning of the pelvis without IV contrast. Coronal reconstructions perfo rmed. CT DLP: 730 mGycm Automated exposure control for dose reduction was used. FINDINGS: A Liriano catheter is present decompressing the bladder. Circumferential bladder wall thickening. Prost ate gland is enlarged measuring 6.2 cm wide. The Liriano catheter has an eccentric position as it cours es along the prostatic urethra, located to the right of midline. Numerous small external iliac chain lymph nodes on both sides, which measure up to 9 mm such as on th e left, axial image 36. Within the visualized lower retroperitoneum, no lymphadenopathy is identified. Mild to moderate atherosclerotic calcifications distal abdominal aorta and common iliac arteries. Extensive sigmoid reticulosis without pericolonic inflammatory change. Visualized lower left kidney shows some cortical cysts measuring up to 2.4 cm. Bones: Mild degenerative change of both hips. Small sclerotic foci in the femoral heads and left acet abulum suggestive of bone islands. Degenerative change left greater than right SI joints. There is de generated levoconvex curvature of the lumbar spine. IMPRESSION: 1. A LIRIANO CATHETER DECOMPRESSES THE BLADDER. CIRCUMFERENTIAL BLADDER WALL THICKENING PROBABLY RELATE S TO CHRONIC BLADDER WALL HYPERTROPHY. 2. THE PROSTATIC URETHRA AND LIRIANO CATHETER IS DISPLACED TOWARDS THE RIGHT. THIS COULD REFLECT AN UND ERLYING NODULE/MASS WITHIN THE LEFT SIDE OF THE PROSTATE GLAND. CORRELATE WITH ANY KNOWN DIAGNOSIS AN D WITH PSA VALUES. 3. SCATTERED SMALL EXTERNAL ILIAC CHAIN LYMPH NODES ARE NONSPECIFIC. THE LARGEST MEASURES UP TO 9 MM. 4. SIGMOID DIVERTICULOSIS WITHOUT ACUTE DIVERTICULITIS. 5. 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
== END | disposition home or self-care (01) ==
LOC: RADCTMAIN 12:17
PROVIDERS: ATTEND Urology
DX: K57.30 Diverticulosis of large intestine without perforation or abscess without bleeding (principal); M41.86 Other forms of scoliosis, lumbar region; R31.1 Benign essential microscopic hematuria; Z96.0 Presence of urogenital implants
CPT/HCPCS: 72192

== ENCOUNTER → 2021-08-01 | Outpatient (CLI) | payer MEDICARE ==
[2021-08-01 12:38] LABS: Appearance,Urine Clear (Clear); Bacteria,Urine Rare /hpf; Bilirubin,Urine Negative (Negative); Blood,Urine Negative (Negative); Color,Urine Light Yellow; Glucose,Urine (UA) Negative (Negative); Ketones,Urine Negative (Negative); Leukocyte Esterase,Urine Trace (Negative); Nitrite,Urine Negative (Negative); Protein,Urine Negative (Negative); Specific Gravity,Urine 1.008 (1.001-1.035); Urobilinogen,Urine <2.0 mg/dL (<2.0); WBC,Urine 1 /hpf (0-5)
[2021-08-01 19:00] LABS: Basophils # (A) 0.03 X 10*3/uL (0.00-0.10); Basophils % (A) 0.5 %; Eosinophils % (A) 3.2 %; HCT 44.7 % (39.6-50.0); HGB 14.6 g/dL (13.0-17.0); Immature Grans, Automated 0.3 %; Lymphocytes # (A) 1.08 X 10*3/uL (0.90-5.00); Lymphocytes % (A) 17.1 %; MCH 29.9 pg (27.0-32.0); MCHC 32.7 g/dL (32.0-37.0); MCV 91.4 fL (80.0-97.0); Mean Platelet Volume 9.4 fL (9.5-12.2); Monocytes # (A) 0.49 X 10*3/uL (0.20-1.00); Monocytes % (A) 7.8 %; NRBC Per 100 WBC 0 /100 WBCS (0.0-0.0); Neutrophils # (A) 4.49 X 10*3/uL (1.80-7.70); Neutrophils % (A) 71.1 %; Platelet Count 167 X 10*3/uL (140-440); RBC 4.89 X 10*6/uL (4.40-5.60); RDW 13.5 % (11.5-14.5); WBC 6.31 X 10*3/uL (4.50-10.00)
[2021-08-01 19:13] LABS: African American GFR (CKD) 57.2 (60.0-200.0); Albumin 4.2 g/dL (3.8-4.9); Albumin/Globulin Ratio 1.32 (1.60-3.17); Anion Gap 13.3 mmol/L (10.00-18.00); BUN/Creat Ratio 19.64 Ratio (12.00-20.00); Blood Urea Nitrogen 27.1 mg/dL (9.0-27.0); Calcium 9.7 mg/dL (8.7-10.3); Carbon Dioxide 24.4 mmol/L (20.0-27.5); Globulin 3.2 g/dL (1.6-3.3); Non-African American GFR(CKD) 49.3 (60.0-200.0); Potassium 4.2 mmol/L (3.5-5.5); Total Bilirubin 0.5 mg/dL (0.30-1.20); Total Protein 7.4 g/dL (6.2-8.2)
== END | disposition home or self-care (01) ==
LOC: LABPAT 10:50
PROVIDERS: ATTEND Urology
DX: Z01.812 Encounter for preprocedural laboratory examination (principal); I10 Essential (primary) hypertension; E11.9 Type 2 diabetes mellitus without complications; N40.1 Benign prostatic hyperplasia with lower urinary tract symptoms; R31.29 Other microscopic hematuria
CPT/HCPCS: 80053; 81001; 85025; 87086

== ENCOUNTER 2021-08-09 07:30 | Inpatient (IN) | payer MEDICARE ==
[2021-08-07 12:21] VITALS: BMI 31.1
--- NOTE | 2021-08-08 09:34 | P.HPIHPCON ---
History of Present Illness H&P Date: 08/08/21 This is a 76 yo male with hx of urinary retention, failed multiple TOV, TRUS which showed a prostate size of 109 gram prostate. His cystoscopy showed obstructive prostate. Discussed given the size of his prostate the recommended approach is either a HoLEP or Robotic simple prostatecomy. discussed the risk and benefit of each procedure in detail. He agreed to proceed with a robotic simple prostatectomy. Discussed with him the risk of surgery which includes but not limited to bleeding, infection, injury to nearby organs which includes but not limited to bowel, ureter, rectum, or blood vessels.. Discussed also with him risk from anesthesia which includes but not limited to heart attack, stroke, blood clots. Discussed with him also the risk of persistent retention even with simple prostatectomy. Discussed the risk of erectile dysfunction and urinary incontinence. He understood all the risk and agreed to proceed Consent for Procedure: I have explained the operation/procedure to the patient, including the risks, benefits, side effects, alternative therapies (including not receiving the proposed treatment or service), the likelihood of the patient achieving his/her goals, and potential recuperation problems for the procedure/sedation/analgesia, as well as any blood products, if indicated. I also explained to the patient the risks, benefits and side effects of the alternatives, as well as the risks related to not receiving the proposed procedure, care, treatment, or services. 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 Last Myocardial Infarction Date:: 12/01/20 History of Any Multi-Drug Resistant Organisms: None Reported Past Surgical History: Adenoidectomy, Cardiac Valve Replacement, Coronary Bypass/CABG, Heart Catheterization, Pacemaker, Tonsillectomy Additional Past Surgical History / Comment(s): Aortic valve replacement/CABG December 2020. Past Anesthesia/Blood Transfusion Reactions: No Reported Reaction Date of Last Stent Placement:: December 2020 Type of Cardiac Device: Unknown Device Placement Date:: 06/19/21 Past Psychological History: No Psychological Hx Reported Smoking Status: Former smoker Past Alcohol Use History: None Reported Additional Past Alcohol Use History / Comment(s): STARTED SMOKING AT AGE 15, QUIT IN 1974, SMOKED 1PPD. Past Drug Use History: None Reported - Past Family History Sister(s) Family Medical History: Cancer Additional Family Medical History / Comment(s): 2 SISTERS HAD LUNG CANCER. Medications and Allergies Home Medications Medication Instructions Recorded Confirmed Type Alfuzosin HCl [Alfuzosin HCl ER] 10 mg PO HS 11/13/20 08/07/21 History Cholecalciferol [Vitamin D3 (25 25 mcg PO DAILY 11/13/20 08/07/21 History Mcg = 1000 Iu)] Multivit-Min/FA/Lycopen/Lutein 1 tab PO DAILY 11/13/20 08/07/21 History [Centrum Silver Tablet] Rosuvastatin Calcium [Crestor] 20 mg PO DAILY 12/02/20 08/07/21 History Clopidogrel [Plavix] 75 mg PO DAILY #30 tab 12/13/20 08/07/21 Rx Losartan [Cozaar] 12.5 mg PO DAILY@1200 #30 tab 12/13/20 08/07/21 Rx Furosemide [Lasix] 20 mg PO DAILY 06/18/21 08/07/21 History Metoprolol Succinate (ER) [Toprol 50 mg PO QAM 06/24/21 08/07/21 History XL] metFORMIN HCL 1,000 mg PO W/SUPPER 06/24/21 08/07/21 History metFORMIN HCL [Glucophage] 500 mg PO W/BRKFST 06/24/21 08/07/21 History Apixaban [Eliquis] 5 mg PO BID 06/25/21 08/07/21 History Amiodarone [Cordarone] 200 mg PO BID 60 Days #120 tab 06/26/21 08/07/21 Rx Allergies Allergy/AdvReac Type Severity Reaction Status Date / Time ibuprofen AdvReac TOLD NOT Verified 08/07/21 12:05 TO TAKE PER BECAUSE OF HIS KIDNEYS Surgical - Exam - General no distress, no pain - Respiratory normal expansion, normal respiratory effort - Abdomen Abdomen: soft, non tender Assessment and Plan Assessment: -OR for robotic simple porstatectomy
[~2021-08-09 07:30] MED LIST changes: +DEXAMETHASONE SOD PHOSPHATE 4 MG/ML 1 ML VIAL IV ONE; +GENTAMICIN 120 MG in SODIUM CHLORIDE 0.9% 100 ML IVPB PRN; +HEPARIN SODIUM,PORCINE/PF 5,000 UNIT/0.5 ML SYRINGE SQ PRN; +HYDROmorphone 0.5 MG/0.5 ML SYRINGE IVP PRN; +LIDOCAINE 1% (10MG/ML) FOR IV START INTRADERMA PRN; -LIDOCAINE 1% INJ 10MG/ML (20 ML MDV) ONE; +MIDAZOLAM 2 MG/2 ML VIAL IV PRN; +ONDANSETRON 4 MG/2 ML VIAL IVP ONE; -ceFAZolin 1 GM in SODIUM CHLORIDE 0.9% 250 ML IRRIGATION PRN
[2021-08-09] MEDS: LACTATED RINGERS 1,000 ML IV SCH (09:21)
[2021-08-09 09:23] LABS: Glucose,Whole Blood 180 mg/dL (75-99)
[2021-08-09] MEDS ORDERED: MIDAZOLAM 2 MG/2 ML VIAL IVP ONE (10:04)
[2021-08-09] MEDS ORDERED: SODIUM CHLORIDE 0.9% (PF) 10 ML VIAL ONE (12:05)
[2021-08-09] MEDS ORDERED: SUCCINYLCHOLINE CHLORIDE 100 MG/5 ML SYR IV ONE (12:05)
[2021-08-09] MEDS ORDERED: PROPOFOL 10 MG/ML 20 ML VIAL IV ONE (12:05)
[2021-08-09] MEDS ORDERED: fentaNYL (PF) 50 MCG/ML 2 ML AMP ONE (12:05)
[2021-08-09] MEDS ORDERED: GLYCOPYRROLATE 0.2 MG/ML 2 ML VIAL ONE (12:05)
[2021-08-09] MEDS ORDERED: ROCURONIUM 10 MG/ML (5 ML VIAL) IV ONE (12:05)
[2021-08-09] MEDS ORDERED: ROPIVACAINE 5 MG/ML 30 ML VIAL ONE (12:05)
[2021-08-09] MEDS ORDERED: DEXAMETHASONE SOD PHOSPHATE 4 MG/ML 1 ML VIAL ONE (12:05)
[2021-08-09] MEDS ORDERED: NEOSTIGMINE 1 MG/ML 10 ML VIAL ONE (12:05)
[2021-08-09] MEDS ORDERED: PHENYLEPHRINE-0.9% NACL SYG 1,000 MCG/10 ML SYRINGE ONE (12:05)
[2021-08-09] MEDS ORDERED: LIDOCAINE 1% INJ 10MG/ML (20 ML MDV) ONE (12:05)
[2021-08-09] MEDS ORDERED: BUPIVACAINE (PF) 0.25% 30 ML VIAL SQ ONE ×2 (12:47→15:46)
[2021-08-09] MEDS ORDERED: LACTATED RINGERS 1,000 ML IV ONE (14:15)
--- NOTE | 2021-08-09 15:49 | P.OP ---
Date of Procedure: 08/09/21 Preoperative Diagnosis: BPH, urinary retention Postoperative Diagnosis: Same Procedure(s) Performed: Robotic-assisted laparoscopic simple prostatectomy Implants: None Anesthesia: CHRISA Surgeon: Rick Vazquez Estimated Blood Loss (ml): 150 Pathology: other (prostate adenoma) Condition: stable Disposition: PACU Indications for Procedure: This is a 76 yo male with hx of urinary retention, failed multiple TOV, TRUS which showed a prostate size of 109 gram prostate. His cystoscopy showed obstructive prostate. Discussed given the size of his prostate the recommended approach is either a HoLEP or Robotic simple prostatecomy. discussed the risk and benefit of each procedure in detail. He agreed to proceed with a robotic simple prostatectomy. Discussed with him the risk of surgery which includes but not limited to bleeding, infection, injury to nearby organs which includes but not limited to bowel, ureter, rectum, or blood vessels.. Discussed also with him risk from anesthesia which includes but not limited to heart attack, stroke, blood clots. Discussed with him also the risk of persistent retention even with simple prostatectomy. Discussed the risk of erectile dysfunction and urinary incontinence. He understood all the risk and agreed to proceed Operative Findings: Bilateral obstructive prostate lobes Description of Procedure: After preoperative antibiotics were started, the patient was taken to the operating room. Anesthesia was induced and the patient was placed in a supine position with adequate padding of the pressure points, shoulders, back, legs and arms. He was then prepped and draped in the standard fashion. A critical pause was performed using two patient identifiers. A 16F veliz catheter was placed to gravity drainage. A pneumoperitoneum was obtained using a Veress needle, after pneumoperitoneum was obtained a 8 mm camera port was placed. Under direct vision a 8mm robotic ports was placed lateral to each rectus slightly below the camera port. The left iliac fossa 8mm port was placed. The right technical services assistant right iliac fossa 12mm port and right paramedian 5mm portwere placed. After the patient was placed in the trendelenberg position, the robot was then docked to the 8mm robotic ports and then each robotic arm and tower was checked in relation to the patient's legs and hands to avoid inadvertent compression. The peritoneal cavity was inspected. Adhesions were taken down along the left lower quadrant An inverted U-shaped incision began laterally to the left medial umbilical ligament and extended high across the midline to the right umbilical ligament. The limbs of the "U" extended to the level of the vasa on both sides. We next developed the preperitoneal space and the space of Retzius. of Cautery was used to dissected the bladder away from the prostate, the incision was made in close proximity to the prostate, and incision was extended laterally and at this point the plane between the adenoma and the surgical capsule is id entified. Both ureteral orifices were identified and neither was injured during the dissection . The adenoma was dissected off of the capsule by combination of blunt dissection and minimum cautery. dissection was initially started along the anterior surface and posterior surface of adenoma, and this was carried laterally. The dissection was carried to the apex, at this point the urethral-prostatic junction was visualized and the prostate was transected at the junction. Prostate adenoma was placed in an endocatch bag . A 9and 9 inch 3-0 V-Lock suture was used to anastomose the urethra and bladder, starting at the 6:00 posterior position. Mucosa was secured in every stitch, to ensure a mucosa to mucosa anastomosis. The stitch was regularly cinched and the anastomosis tightened. . The 20 Fr Veliz catheter was advanced, the bladder filled, and the anastomosis was tested. Anastomsis was watertight at 150 mL. balloon was inflated to 10 mL The robot was undocked. specimen was extracted from the supraumbilical incision. The periumbilical fascia was closed with 1-0-PDS suture in figure of 8 fashion. All ports were closed with a subcuticular 4-0 monocryl and Dermabond. Sponge, instrument, and needle counts were correct at the end of the case x2. The patient tolerated the surgery well and without complication. He awoke without difficulty and was taken to the recovery room in stable condition
[2021-08-09] MEDS ORDERED: ONDANSETRON 4 MG/2 ML VIAL IVP PRN (15:50)
[2021-08-09] MEDS ORDERED: HYDROcodone/APAP 5-325MG 1 EACH TAB PO PRN (15:51)
[2021-08-09 16:13] LABS: Glucose,Whole Blood 249 mg/dL (75-99)
[2021-08-09] MEDS: SODIUM CHLORIDE 0.9% 1,000 ML IV SCH ×2 (17:07→17:23)
[2021-08-09] MEDS ORDERED: INSULIN ASPART (NovoLOG) 100 UNIT/ML VIAL SQ ONE (17:19)
[2021-08-09] MEDS ORDERED: metFORMIN 500 MG TAB PO SCH (17:30)
[2021-08-09] MEDS: HEPARIN SODIUM,PORCINE/PF 5,000 UNIT/0.5 ML SYRINGE SQ SCH ×2 (18:23→21:28)
[2021-08-09] MEDS: methocarbamoL 750 MG TAB PO SCH ×2 (18:26→21:25)
[2021-08-09 21:15] LABS: Glucose,Whole Blood 280 mg/dL (75-99)
[2021-08-09] MEDS: AMIODARONE 200 MG TAB PO SCH (21:24)
[2021-08-10] MEDS: SODIUM CHLORIDE 0.9% 1,000 ML IV SCH (06:48)
[2021-08-10] MEDS: LACTATED RINGERS 1,000 ML IV SCH (06:49)
[2021-08-10 07:05] LABS: Glucose,Whole Blood 247 mg/dL (75-99)
[2021-08-10] MEDS ORDERED: metFORMIN 500 MG TAB PO SCH (07:30)
[2021-08-10] MEDS: HEPARIN SODIUM,PORCINE/PF 5,000 UNIT/0.5 ML SYRINGE SQ SCH (07:46)
[2021-08-10] MEDS: AMIODARONE 200 MG TAB PO SCH (07:47)
[2021-08-10] MEDS: methocarbamoL 750 MG TAB PO SCH (07:48)
--- NOTE | 2021-08-10 07:48 | P.DS ---
Providers Date of admission: 08/09/21 08:42 Expected date of discharge: 08/10/21 Attending physician: Rick Vazquez MD Primary care physician: [facility] Course: On the day of admission, the patient underwent an uncomplicated robotic-assisted laparoscopic simple prostatectomy. The perioperative course was unremarkable. Patient remained afebrile stable vital signs. On the first postoperative day, his only complaint was left shoulder discomfort and bladder discomfort, both of which she described as mild in severity. He denied chest pain, shortness of breath, and nausea. On examination, the abdomen was soft and nondistended. The incisions were clean, dry, and intact. The Tompkins catheter was draining clear yellow urine. Procedures: Robotic-assisted laparoscopic simple prostatectomy in 08/09/2021 Patient Condition at Discharge: Good Plan - Discharge Summary Discharge Rx Participant: No New Discharge Prescriptions: New Ketorolac [Toradol] 10 mg PO Q6HR PRN #12 tab PRN Reason: Pain No Action Cholecalciferol [Vitamin D3 (25 Mcg = 1000 Iu)] 25 mcg PO DAILY Multivit-Min/FA/Lycopen/Lutein [Centrum Silver Tablet] 1 tab PO DAILY Clopidogrel [Plavix] 75 mg PO DAILY #30 tab Furosemide [Lasix] 20 mg PO DAILY Alfuzosin HCl [Alfuzosin HCl ER] 10 mg PO HS Rosuvastatin Calcium [Crestor] 20 mg PO DAILY Losartan [Cozaar] 12.5 mg PO DAILY@1200 #30 tab Metoprolol Succinate (ER) [Toprol XL] 50 mg PO QAM metFORMIN HCL 1,000 mg PO W/SUPPER metFORMIN HCL [Glucophage] 500 mg PO W/BRKFST Apixaban [Eliquis] 5 mg PO BID Amiodarone [Cordarone] 200 mg PO BID 60 Days #120 tab Discharge Medication List Alfuzosin HCl [Alfuzosin HCl ER] 10 mg PO HS 11/13/20 [History] Cholecalciferol [Vitamin D3 (25 Mcg = 1000 Iu)] 25 mcg PO DAILY 11/13/20 [History] Multivit-Min/FA/Lycopen/Lutein [Centrum Silver Tablet] 1 tab PO DAILY 11/13/20 [History] Rosuvastatin Calcium [Crestor] 20 mg PO DAILY 12/02/20 [History] Clopidogrel [Plavix] 75 mg PO DAILY #30 tab 12/13/20 [Rx] Losartan [Cozaar] 12.5 mg PO DAILY@1200 #30 tab 12/13/20 [Rx] Furosemide [Lasix] 20 mg PO DAILY 06/18/21 [History] Metoprolol Succinate (ER) [Toprol XL] 50 mg PO QAM 06/24/21 [History] metFORMIN HCL 1,000 mg PO W/SUPPER 06/24/21 [History] metFORMIN HCL [Glucophage] 500 mg PO W/BRKFST 06/24/21 [History] Apixaban [Eliquis] 5 mg PO BID 06/25/21 [History] Amiodarone [Cordarone] 200 mg PO BID 60 Days #120 tab 06/26/21 [Rx] Ketorolac [Toradol] 10 mg PO Q6HR PRN #12 tab 08/10/21 [Rx] Follow up Appointment(s)/Referral(s): Rick Vazquez MD [STAFF PHYSICIAN] - 1 Week Activity/Diet/Wound Care/Special Instructions: Discharge home with Tompkins catheter. Okay to shower. Diet as tolerated. No lifting, driving, or strenuous activity. Reassure patient that abdominal wall ecchymosis and penoscrotal swelling are normal. Discharge Disposition: HOME SELF-CARE
[2021-08-10 08:41] VITALS: BP 113/56; PULSE 64; RESP 18; TEMP 97.4
--- NOTE | 2021-08-10 08:49 | P.ANPRN ---
Procedure Note - Anesthesia - Nerve Block Performed Bilateral Erector Spinae Single Time Out Performed: Yes Date of Procedure: 08/10/21 Procedure Start Time: : Procedure Stop Time: : Location of Patient: PreOp Indication: Acute Post-Operative Pain, Requested by Surgeon Sedation Type: Sedate with meaningful contact maintained Preparation: Sterile Prep Position: Prone Needle Types: Pajunk Needle Gauge: 21 Ultrasound used to visualize needle placement: Yes Ultrasound used to observe medication spread: Yes Blood Aspirated: No Pain Paresthesia on Injection Noted: No Resistance on Injection: Normal Image Stored and Saved: Yes Events: Uneventful and Well Tolerated (Ropivacaine 0.5% 15 mL plus normal saline 10 mL was dexamethasone 4 mg given bilaterally at L1)
[2021-08-10] MEDS ORDERED: ATORVASTATIN 40 MG TAB PO SCH (09:00)
[2021-08-10] MEDS ORDERED: METOPROLOL SUCCINATE (ER) 50 MG TAB.ER.24H PO SCH (09:00)
[2021-08-10] MEDS ORDERED: LOSARTAN 25 MG TAB PO SCH (12:00)
== END 2021-08-10 10:45 | disposition home or self-care (01) | DRG 708 ==
LOC: 2ORMAIN 08:42 → 4SSUR 16:37
PROVIDERS: ADMIT Urology; ATTEND Urology
PROC: 8E0W4CZ Robotic Assisted Procedure of Trunk Region, Percutaneous Endoscopic Approach (ICD-10-PCS; 2021-08-09)
PROC: 0VT04ZZ Resection of Prostate, Percutaneous Endoscopic Approach (ICD-10-PCS; principal; 2021-08-09 10:25)
DX: N40.1 Benign prostatic hyperplasia with lower urinary tract symptoms (principal); D29.1 Benign neoplasm of prostate; R33.8 Other retention of urine; I10 Essential (primary) hypertension; Z88.6 Allergy status to analgesic agent; I25.10 Atherosclerotic heart disease of native coronary artery without angina pectoris; E11.9 Type 2 diabetes mellitus without complications; K21.9 Gastro-esophageal reflux disease without esophagitis; I25.2 Old myocardial infarction; Z95.0 Presence of cardiac pacemaker; Z87.19 Personal history of other diseases of the digestive system; Z95.2 Presence of prosthetic heart valve; Z95.5 Presence of coronary angioplasty implant and graft; Z79.84 Long term (current) use of oral hypoglycemic drugs; Z79.899 Other long term (current) drug therapy
CPT/HCPCS: 64999; 86850; 86900; 86901

== ENCOUNTER → 2022-02-22 | Outpatient (CLI) | payer MEDICARE ==
--- NOTE | 2022-02-24 08:12 | US ---
EXAMINATION TYPE: US kidneys/renal and bladder DATE OF EXAM: 02/22/2022 COMPARISON: None CLINICAL HISTORY: 76-year-old male R31.0 GROSS HEMATURIA. TECHNIQUE: Multiple sonographic images of the kidneys and bladder are obtained. FINDINGS: EXAM MEASUREMENTS: Right Kidney: 10.6 x 4.7 x 5.6 cm Left Kidney: 13.6 x 6.2 x 5.2 cm Right Kidney: No evidence of hydronephrosis. There is a small round cortical hypoechoic lesion at the upper pole measuring 1.7 x 1.8 x 1.4 cm. There is some posterior through transmission noted. Left Kidney: No evidence of hydronephrosis. There are 2 benign cortical cysts, largest at the mid marianna e measuring 2.3 cm and a tiny 1 cm cyst at the upper pole. Bladder: Partially distended bladder shows no gross abnormality. Bilateral Jets seen: No Incidental finding of a 2.2 cm gallstone IMPRESSION: 1. No hydronephrosis. 2. A hypoechoic 1.8 cm cortical lesion upper pole right kidney probably represents a cyst. Internal e choes could be artifactual or could represent debris. Precautionary 6 month follow-up renal ultrasoun d recommended to reassess. 3. A couple benign cortical cysts in the left kidney measuring up to 2.3 cm.
== END | disposition home or self-care (01) ==
LOC: RADUSWWP 15:46
PROVIDERS: ATTEND Urology
DX: N28.9 Disorder of kidney and ureter, unspecified (principal); N28.1 Cyst of kidney, acquired
CPT/HCPCS: 76770

== ENCOUNTER → 2022-05-24 | Outpatient (CLI) | payer MEDICARE ==
--- NOTE | 2022-05-25 08:55 | PE ---
EXAMINATION TYPE: PET CT fusion whole body DATE OF EXAM: 05/24/2022 CLINICAL INDICATION:Male, 76 years old with history of D47.2; monoclonal gammopathy TECHNIQUE: Following the intravenous administration of 10.35 mCi of F-18 FDG, whole body images are performed from the skull base to the midthigh. Images are reviewed on the computer in the coronal, axial, and sagittal planes. Reconstructed rotating images are created on independent workstation and reviewed on the computer. A non-contrast CT is performed in conjunction with the PET scan. Glucose level 170 mg/dL COMPARISON: CT None, PET/CT None, FINDINGS: Mediastinal SUV mean is 1.7. Hepatic parenchyma SUV mean is 2.6. SKULL BASE AND NECK: No suspicious radiotracer activity. CHEST, MEDIASTINUM, AND HILAR REGION: No suspicious radiotracer activity. ABDOMEN AND PELVIS: No suspicious radiotracer activity. * FDG activity within the patient's umbilical hernia containing fat max SUV 3.8. OSSEOUS STRUCTURES: No suspicious radiotracer activity. LOWER EXTREMITIES: No suspicious radiotracer activity. OTHER CT: Ben cisterna magna. Atherosclerosis of the arterial vasculature including the carotid bifu rcations and coronary arteries. CABG changes. Post aortic valve changes. Heart is mildly enlarged for size. Cardiac conduction leads in appropriate position the right ventricle and right atrium. Bilater al nonobstructing renal calculi. Colonic diverticulosis. Fat filled umbilical hernia. Postsurgical ch anges to the prostate gland with suspected underlying TURP. IMPRESSION: 1. No suspicious radiotracer activity. 2. FDG activity within the patient's umbilical hernia suggests infection/inflammatory
== END ==
LOC: RADXRMAIN 15:06
PROVIDERS: ATTEND Internal Medicine
DX: D47.2 Monoclonal gammopathy (principal); K42.9 Umbilical hernia without obstruction or gangrene
CPT/HCPCS: 78816; A9552

== ENCOUNTER 2022-06-18 19:46 | Inpatient (IN) | payer MEDICARE ==
[2022-06-18] MEDS ORDERED: SODIUM CHLORIDE 0.9% 1,000 ML IV STA (19:57)
[2022-06-18 20:23] LABS: Basophils % (A) 0 %; Eosinophils % (A) 1 %; HCT 34.5 % (39.0-53.0); HGB 11.8 gm/dL (13.0-17.5); Lymphocytes # (A) 0.4 k/uL (1.0-4.8); Lymphocytes % (A) 7 %; MCHC 34.2 g/dL (31.0-37.0); MCV 90.6 fL (80.0-100.0); Mean Platelet Volume 9.1; Monocytes # (A) 0.4 k/uL (0-1.0); Monocytes % (A) 6 %; Neutrophils # (A) 5.5 k/uL (1.3-7.7); Neutrophils % (A) 84 %; Platelet Count 118 k/uL (150-450); RBC 3.81 m/uL (4.30-5.90); RDW 13.8 % (11.5-15.5); WBC 6.6 k/uL (3.8-10.6)
--- NOTE | 2022-06-18 20:38 | XR ---
EXAMINATION TYPE: XR chest 2V DATE OF EXAM: 06/18/2022 8:21 PM COMPARISON: Chest radiographs from 06/24/2021 TECHNIQUE: XR chest 2V Frontal and lateral views of the chest. CLINICAL INDICATION:Male, 76 years old with history of Weakness; FINDINGS: Lungs/Pleura: There is no evidence of pleural effusion, focal consolidation, or pneumothorax. Pulmonary vascularity: Unremarkable. Heart/mediastinum: Cardiomediastinal silhouette is enlarged and stable. Post valve repair changes. T hree lead cardiac conduction device overlying the left hemithorax with lead tips projecting over the right ventricle, right atrium and coronary sinus. Musculoskeletal: No acute osseous pathology. Midline sternotomy wires are noted. IMPRESSION: Cardiomegaly and postsurgical changes without acute process within the visualized. No significant bibiana nge from prior.
[2022-06-18 20:39] LABS: INR 1.1 (<1.2); Partial Thromboplastin Time 32.5 sec (22.0-30.0); Prothrombin Time 11.2 sec (9.0-12.0)
[2022-06-18 21:29] LABS: Albumin 3.1 g/dL (3.5-5.0); Calcium 9.5 mg/dL (8.4-10.2); Magnesium 2.1 mg/dL (1.6-2.3); Potassium 4.4 mmol/L (3.5-5.1); Total Bilirubin 0.9 mg/dL (0.2-1.3); Total Protein 6.4 g/dL (6.3-8.2)
[2022-06-18] MEDS ORDERED: ACETAMINOPHEN TAB 500 MG TAB PO STA (21:36)
[2022-06-18] MEDS ORDERED: NALOXONE 0.4 MG/ML 1 ML VIAL IV PRN (21:41)
[2022-06-18] MEDS: TAMSULOSIN 0.4 MG CAP.ER.24H PO SCH (21:56)
[2022-06-18] MEDS: SODIUM CHLORIDE 0.9% 1,000 ML IV SCH (21:56)
--- NOTE | 2022-06-18 22:28 | XR ---
EXAMINATION TYPE: XR knee complete RT DATE OF EXAM: 06/18/2022 COMPARISON: NONE HISTORY: Knee pain TECHNIQUE: 3 views FINDINGS: There is no evidence of fracture nor dislocation. Joint spaces are normal. No pathologic ca lcification. No sign of joint effusion. IMPRESSION: Negative right knee exam.
[2022-06-18] MEDS: AMIODARONE 200 MG TAB PO SCH (22:39)
--- NOTE | 2022-06-18 22:50 | ED ---
Weakness HPI - General Chief complaint: Weakness Stated complaint: Fever Time Seen by Provider: 06/18/22 19:57 Source: EMS Mode of arrival: EMS Limitations: no limitations - History of Present Illness Initial comments: Patient is a 76-year-old male presenting to the emergency department for evaluation of weakness. Patient having trouble moving around at home due to generalized weakness for the past few days. He reports dry cough and intermittent chills otherwise no upper respiratory symptoms. No chest pain, shortness of breath, abdominal pain, nausea, vomiting, burning with urination. - Related Data Home Medications Medication Instructions Recorded Confirmed Rosuvastatin Calcium [Crestor] 20 mg PO DAILY 12/02/20 06/18/22 Furosemide [Lasix] 20 mg PO Q48H 06/18/21 06/18/22 Metoprolol Succinate (ER) [Toprol 50 mg PO DAILY 06/24/21 06/18/22 XL] metFORMIN HCL [Glucophage] 500 mg PO BID-W/MEALS 06/24/21 06/18/22 Apixaban [Eliquis] 5 mg PO BID 06/25/21 06/18/22 Amiodarone [Cordarone] 100 mg PO DAILY 06/18/22 06/18/22 Ascorbic Acid [Vitamin C] 500 mg PO DAILY 06/18/22 06/18/22 Beta-Carotene [Beta Carotene] 25,000 unit PO DAILY 06/18/22 06/18/22 Losartan Potassium 50 mg PO DAILY 06/18/22 06/18/22 Multivit-Min/FA/Lycopen/Lutein 1 tab PO DAILY 06/18/22 06/18/22 [Centrum Silver Men Tablet] glipiZIDE 2.5 mg PO BID 06/18/22 06/18/22 Previous Rx's Medication Instructions Recorded Clopidogrel [Plavix] 75 mg PO DAILY #30 tab 12/13/20 Allergies Allergy/AdvReac Type Severity Reaction Status Date / Time ibuprofen AdvReac TOLD NOT Verified 06/18/22 19:51 TO TAKE PER BECAUSE OF HIS KIDNEYS Review of Systems ROS Statement: Those systems with pertinent positive or pertinent negative responses have been documented in the HPI. ROS Other: All systems not noted in ROS Statement are negative. 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 Toth H & P Last Myocardial Infarction Date:: 12/01/20 History of Any Multi-Drug Resistant Organisms: None Reported Past Surgical History: Adenoidectomy, Cardiac Valve Replacement, Coronary Bypass/CABG, EPS, Heart Catheterization, Pacemaker, Tonsillectomy Additional Past Surgical History / Comment(s): aortic valve replacement December 2020. pacemaker placed on 06/19/21 Past Anesthesia/Blood Transfusion Reactions: No Reported Reaction Date of Last Stent Placement:: December 2020 Type of Cardiac Device: Biventricular Pacemaker Device Placement Date:: 06/19/21 Past Psychological History: No Psychological Hx Reported Smoking Status: Former smoker Past Alcohol Use History: None Reported Past Drug Use History: None Reported - Past Family History Sister(s) Family Medical History: Cancer Additional Family Medical History / Comment(s): 2 SISTERS HAD LUNG CANCER. General Exam Limitations: no limitations General appearance: alert, in no apparent distress Head exam: Present: atraumatic, normocephalic, normal inspection Eye exam: Present: normal appearance, PERRL, EOMI. Absent: scleral icterus, conjunctival injection, periorbital swelling ENT exam: Present: normal exam, mucous membranes dry, mucous membranes moist Respiratory exam: Present: normal lung sounds bilaterally. Absent: respiratory distress, wheezes, rales, rhonchi, stridor Cardiovascular Exam: Present: regular rate, normal rhythm, normal heart sounds. Absent: systolic murmur, diastolic murmur, rubs, gallop, clicks GI/Abdominal exam: Present: soft, normal bowel sounds. Absent: distended, tenderness, guarding, rebound, rigid Extremities exam: Present: normal inspection Neurological exam: Present: alert, oriented X3, CN II-XII intact Psychiatric exam: Present: normal affect, normal mood Skin exam: Present: warm, dry, intact, normal color. Absent: rash Course Vital Signs 06/18/22 06/18/22 19:51 21:45 Temperature 101.1 F H 100.6 F H Pulse Rate 68 75 Respiratory 15 18 Rate Blood Pressure 136/75 118/74 O2 Sat by Pulse 100 98 Oximetry Medical Decision Making - Medical Decision Making Was pt. sent in by a medical professional or institution (, PA, MATERNITY NURSE, urgent care, hospital, or prison...) When possible be specific @ -[No] Did you speak to anyone other than the patient for history (EMS, parent, family, police, friend...)? What history was obtained from this source @ -[No] Did you review nursing and triage notes (agree or disagree)? Why? @ -[I reviewed and agree with nursing and triage notes] Were old charts reviewed (outside hosp., previous admission, EMS record, old EKG, old radiological studies, urgent care reports/EKG's, prison records)? Report findings @ -[No old charts were reviewed] Differential Diagnosis (chest pain, altered mental status, abdominal pain women, abdominal pain men, vaginal bleeding, weakness, fever, dyspnea, syncope, headache, dizziness, GI bleed, back pain, seizure, CVA, palpatations, mental health)? @ -Differential Weakness: Hypoglycemia, shock, sepsis, hyponatremia, anemia, infection, MD, ETOH, adverse medicine reaction, overdose, stroke, this is not meant to be an all-inclusive list. EKG interpreted by me (3pts min.). @ -Gas, showing electronic ventricular pacemaker. Ventricular rate 81, NJ interval to 217, QRS duration 165, QTC 432 X-rays interpreted by me (1pt min.). @ Yes, chest x-ray shows cardiomegaly without acute process Family also asked for right knee x-ray due to patient "wincing" when they moved his knee. This is negative for fracture or other acute process. CT interpreted by me (1pt min.). @ -[None done] U/S interpreted by me (1pt. min.). @ -[None done] What testing was considered but not performed or refused? (CT, X-rays, U/S, labs)? Why? @ -[None] What meds were considered but not given or refused? Why? @ -[None] Did you discuss the management of the patient with other professionals (professionals i.e. , PA, MATERNITY NURSE, lab, RT, psych nurse, manager social media, high school english teacher, t eacher, business enterprise officer, outpatient case manager)? Give summary @ -[No] Was smoking cessation discussed for >3mins.? @ -[No] Was critical care preformed (if so, how long)? @ -[No] Were there social determinants of health that impacted care today? How? (Homelessness, low income, unemployed, alcoholism, drug addiction, transportation, low edu. Level, literacy, decrease access to med. care, custodial, r ehab)? @ -[No] Was there de-escalation of care discussed even if they declined (Discuss DNR or withdrawal of care, Hospice)? DNR status @ -[No] What co-morbidities impacted this encounter? (DM, HTN, Smoking, COPD, CAD, Cance r, CVA, ARF, Chemo, Hep., AIDS, mental health diagnosis, sleep apnea, morbid obesity)? @ DM, HTN, HLD, CAD Was patient admitted / discharged? Hospital course, mention meds given and route, prescriptions, significant lab abnormalities, going to OR and other pertinent info. @ -This is a 76-year-old male presenting with generalized weakness. Febrile at 101.1 F. No SOB, CP. No abnormal lung sounds. Laboraty studies significant for covid-19 infection and YESICA. Creatinine at 4.73, BUN at 77. I suspect in relation to dehydration. Patient given Tylenol, IV fluids. He will be admitted for YESICA. Case discussed with Dr. Godinez who accepts admission. Nephro consulted Undiagnosed new problem with uncertain prognosis? @ -[No] Drug Therapy requiring intensive monitoring for toxicity (Heparin, Nitro, Insulin, Cardizem)? @ -[No] Were any procedures done? @ -[No] Diagnosis/symptom? @ -covid-19 Acute, or Chronic, or Acute on Chronic? @ -acute Uncomplicated (without systemic symptoms) or Complicated (systemic symptoms)? @ -uncomplicated Side effects of treatment? @ -[No] Exacerbation, Progression, or Severe Exacerbation? @ -[No] Poses a threat to life or bodily function? How? (Chest pain, USA, MD, pneumonia, PE, COPD, DKA, ARF, appy, cholecystitis, CVA, Diverticulitis, Homicidal, Suicidal, threat to staff... and all critical care pts) @ -[No] Diagnosis/symptom? @ -YESICA Acute, or Chronic, or Acute on Chronic? @ acute Uncomplicated (without systemic symptoms) or Complicated (systemic symptoms)? @ -[default] Side effects of treatment? @ -[none] Exacerbation, Progression, or Severe Exacerbation] @ -[no] Poses a threat to life or bodily function? @ -[no] Dr. Geronimo is my attending. - Lab Data Result diagrams: 06/18/22 20:08 06/18/22 20:08 Lab Results 06/18/22 06/18/22 06/18/22 Range/Units 20:05 20:08 20:08 WBC 6.6 (3.8-10.6) k/uL RBC 3.81 L (4.30-5.90) m/uL Hgb 11.8 L (13.0-17.5) gm/dL Hct 34.5 L (39.0-53.0) % MCV 90.6 (80.0-100.0) fL MCH 31.0 (25.0-35.0) pg MCHC 34.2 (31.0-37.0) g/dL RDW 13.8 (11.5-15.5) % Plt Count 118 L (150-450) k/uL MPV 9.1 Neutrophils % 84 % Lymphocytes % 7 % Monocytes % 6 % Eosinophils % 1 % Basophils % 0 % Neutrophils # 5.5 (1.3-7.7) k/uL Lymphocytes # 0.4 L (1.0-4.8) k/uL Monocytes # 0.4 (0-1.0) k/uL Eosinophils # 0.0 (0-0.7) k/uL Basophils # 0.0 (0-0.2) k/uL PT 11.2 (9.0-12.0) sec INR 1.1 (<1.2) APTT 32.5 H (22.0-30.0) sec Sodium (137-145) mmol/L Potassium (3.5-5.1) mmol/L Chloride (98-107) mmol/L Carbon Dioxide (22-30) mmol/L Anion Gap mmol/L BUN (9-20) mg/dL Creatinine (0.66-1.25) mg/dL Est GFR (CKD-EPI)AfAm (>60 ml/min/1.73 sqM) Est GFR (CKD-EPI)NonAf (>60 ml/min/1.73 sqM) Glucose (74-99) mg/dL Plasma Lactic Acid Mio (0.7-2.0) mmol/L Calcium (8.4-10.2) mg/dL Magnesium (1.6-2.3) mg/dL Total Bilirubin (0.2-1.3) mg/dL AST (17-59) U/L ALT (4-49) U/L Alkaline Phosphatase (38-126) U/L Total Protein (6.3-8.2) g/dL Albumin (3.5-5.0) g/dL Influenza Type A (PCR) Not Detected (Not Detectd) Influenza Type B (PCR) Not Detected (Not Detectd) RSV (PCR) Not Detected (Not Detectd) SARS-CoV-2 (PCR) Detected A (Not Detectd) 06/18/22 06/18/22 Range/Units 20:08 20:08 WBC (3.8-10.6) k/uL RBC (4.30-5.90) m/uL Hgb (13.0-17.5) gm/dL Hct (39.0-53.0) % MCV (80.0-100.0) fL MCH (25.0-35.0) pg MCHC (31.0-37.0) g/dL RDW (11.5-15.5) % Plt Count (150-450) k/uL MPV Neutrophils % % Lymphocytes % % Monocytes % % Eosinophils % % Basophils % % Neutrophils # (1.3-7.7) k/uL Lymphocytes # (1.0-4.8) k/uL Monocytes # (0-1.0) k/uL Eosinophils # (0-0.7) k/uL Basophils # (0-0.2) k/uL PT (9.0-12.0) sec INR (<1.2) APTT (22.0-30.0) sec Sodium 135 L (137-145) mmol/L Potassium 4.4 (3.5-5.1) mmol/L Chloride 107 (98-107) mmol/L Carbon Dioxide 16 L (22-30) mmol/L Anion Gap 12 mmol/L BUN 77 H (9-20) mg/dL Creatinine 4.73 H (0.66-1.25) mg/dL Est GFR (CKD-EPI)AfAm 13 (>60 ml/min/1.73 sqM) Est GFR (CKD-EPI)NonAf 11 (>60 ml/min/1.73 sqM) Glucose 127 H (74-99) mg/dL Plasma Lactic Acid Mio 1.9 (0.7-2.0) mmol/L Calcium 9.5 (8.4-10.2) mg/dL Magnesium 2.1 (1.6-2.3) mg/dL Total Bilirubin 0.9 (0.2-1.3) mg/dL AST 56 (17-59) U/L ALT 71 H (4-49) U/L Alkaline Phosphatase 149 H (38-126) U/L Total Protein 6.4 (6.3-8.2) g/dL Albumin 3.1 L (3.5-5.0) g/dL Influenza Type A (PCR) (Not Detectd) Influenza Type B (PCR) (Not Detectd) RSV (PCR) (Not Detectd) SARS-CoV-2 (PCR) (Not Detectd) Disposition Clinical Impression: COVID-19, Acute kidney failure Disposition: ADMITTED IP TO THIS [facility] Condition: Good Referrals: López Aden DO [Primary Care Provider] - 1-2 days
[2022-06-18 23:16] LABS: Appearance,Urine Cloudy (Clear); Bacteria,Urine Occasional /hpf; Bilirubin,Urine Negative (Negative); Blood,Urine Large (Negative); Color,Urine Yellow; Glucose,Urine (UA) Negative (Negative); Ketones,Urine Negative (Negative); Leukocyte Esterase,Urine Large (Negative); Mucus,Urine Rare /hpf; Nitrite,Urine Negative (Negative); PH, Urine 5.5 (5.0-8.0); Protein,Urine 2+ (Negative); RBC,Urine >182 /hpf (0-5); Specific Gravity,Urine 1.013 (1.001-1.035); Squamous Epithelial Cell,Urine 1 /hpf (0-4); Urobilinogen,Urine <2.0 mg/dL (<2.0); WBC,Urine >182 /hpf (0-5)
[2022-06-18] MEDS ORDERED: CLOPIDOGREL 75 MG TAB PO SCH (23:30)
[2022-06-19] MEDS: APIXABAN 5 MG TAB PO SCH ×3 (00:08→21:19)
[2022-06-19 06:25] LABS: Glucose,Whole Blood 151 mg/dL (70-110)
[2022-06-19] MEDS ORDERED: metFORMIN 500 MG TAB PO SCH (07:30)
[2022-06-19] MEDS: AMIODARONE 200 MG TAB PO SCH ×2 (07:38→21:19)
[2022-06-19] MEDS: CLOPIDOGREL 75 MG TAB PO SCH (07:38)
[2022-06-19] MEDS: CHOLECALCIFEROL 25 MCG (1000 IU) TABLET PO SCH (07:38)
[2022-06-19] MEDS: MULTIVITAMINS, THERA 1 EACH TAB PO SCH (07:38)
[2022-06-19] MEDS: ATORVASTATIN 40 MG TAB PO SCH (07:38)
[2022-06-19] MEDS ORDERED: METOPROLOL SUCCINATE (ER) 50 MG TAB.ER.24H PO SCH (09:00)
[2022-06-19] MEDS ORDERED: FUROSEMIDE 20 MG TAB PO SCH (09:00)
[2022-06-19 09:20] LABS: African American GFR (CKD) 13 (>60 ml/min/1.73 sqM); Anion Gap 9 mmol/L; Blood Urea Nitrogen 75 mg/dL (9-20); Carbon Dioxide 19 mmol/L (22-30); Chloride 109 mmol/L (98-107); Glucose 134 mg/dL (74-99); Magnesium 2.1 mg/dL (1.6-2.3); Non-African American GFR(CKD) 11 (>60 ml/min/1.73 sqM); Potassium 4.1 mmol/L (3.5-5.1); Sodium 137 mmol/L (137-145)
[2022-06-19 10:49] LABS: Glucose,Whole Blood 169 mg/dL (70-110)
--- NOTE | 2022-06-19 11:03 | P.NPCON ---
History of Present Illness - Reason for Consult acute renal failure, chronic renal failure - History of Present Illness Reason for consultation: Acute kidney injury and chronic kidney disease History of present illness: Patient is a 76-year-old male seen in consultation for acute kidney injury on chronic kidney disease. Patient's creatinine in July 2021 was near 1.4 and was in the range of 1.8 to in March 2022. Patient states he presented to the hospital due to generalized weakness which began on Friday and progressively got worse to the point for he was unable to even stand. He did test positive for COVID-19. Creatinine on admission was 4.73 and is 4.67 today. Blood pressure has been stable but on the lower side with lowest reading 90/58 this admission. Patient does have long-standing history of diabetes. He was taking Lasix as well as losartan at home. Both of these are currently held. Additionally he was also on metformin that she received earlier this morning but has now been discontinued. He did receive a liter bolus of normal saline and is currently maintained on normal saline at 75 mL an hour. Denies hematuria or dysuria. 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 Giang outpatient. Patient states he's been told that he has no malignancy. Vital signs are stable. General: No acute distress. HEENT: Head exam is unremarkable. LUNGS: Breath sounds decreased. HEART: Rate and Rhythm are regular. ABDOMEN: Soft, no distention. EXTREMITITES: No edema. 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 Toth H & P Last Myocardial Infarction Date:: 12/01/20 History of Any Multi-Drug Resistant Organisms: None Reported Past Surgical History: Adenoidectomy, Cardiac Ablation, Cardiac Valve Replacement, Coronary Bypass/CABG, EPS, Heart Catheterization, Heart Catheterization With Stent, Pacemaker, Prostate Surgery, Tonsillectomy Additional Past Surgical History / Comment(s): aortic valve replacement December 2020. 2 stents pacemaker placed on 06/19/21, prostate removed 08/2021 Past Anesthesia/Blood Transfusion Reactions: No Reported Reaction Date of Last Stent Placement:: 12/07/20 Type of Cardiac Device: Biventricular Pacemaker Device Placement Date:: 06/19/21 Past Psychological History: No Psychological Hx Reported Smoking Status: Former smoker Past Alcohol Use History: None Reported Additional Past Alcohol Use History / Comment(s): STARTED SMOKING AT AGE 15 QUIT 1975 SMOKED 1PPD Past Drug Use History: None Reported - Past Family History Sister(s) Family Medical History: Cancer Additional Family Medical History / Comment(s): 2 SISTERS HAD LUNG CANCER. Medications and Allergies Home Medications Medication Instructions Recorded Confirmed Type Rosuvastatin Calcium [Crestor] 20 mg PO DAILY 12/02/20 06/18/22 History Clopidogrel [Plavix] 75 mg PO DAILY #30 tab 12/13/20 06/18/22 Rx Furosemide [Lasix] 20 mg PO Q48H 06/18/21 06/18/22 History Metoprolol Succinate (ER) [Toprol 50 mg PO DAILY 06/24/21 06/18/22 History XL] metFORMIN HCL [Glucophage] 500 mg PO BID-W/MEALS 06/24/21 06/18/22 History Apixaban [Eliquis] 5 mg PO BID 06/25/21 06/18/22 History Amiodarone [Cordarone] 100 mg PO DAILY 06/18/22 06/18/22 History Ascorbic Acid [Vitamin C] 500 mg PO DAILY 06/18/22 06/18/22 History Beta-Carotene [Beta Carotene] 25,000 unit PO DAILY 06/18/22 06/18/22 History Losartan Potassium 50 mg PO DAILY 06/18/22 06/18/22 History Multivit-Min/FA/Lycopen/Lutein 1 tab PO DAILY 06/18/22 06/18/22 History [Centrum Silver Men Tablet] glipiZIDE 2.5 mg PO BID 06/18/22 06/18/22 History Allergies Allergy/AdvReac Type Severity Reaction Status Date / Time ibuprofen AdvReac TOLD NOT Verified 06/18/22 19:51 TO TAKE PER BECAUSE OF HIS KIDNEYS Physical Exam Vitals: Vital Signs Temp Pulse Pulse Resp BP BP Pulse Ox 06/19/22 07:43 98.1 F 76 16 90/58 97 06/19/22 01:55 97.5 F L 72 17 103/65 97 06/18/22 23:41 98.8 F 72 18 101/63 98 06/18/22 23:20 75 18 110/82 98 06/18/22 22:46 100 F H 73 20 122/71 98 06/18/22 21:45 100.6 F H 75 18 118/74 98 06/18/22 19:51 101.1 F H 68 15 136/75 100 Intake and Output 06/18/22 06/19/22 06/19/22 22:59 06:59 14:59 Output Total 150 Balance -150 Output: Urine 150 Other: Voiding Method Toilet # Voids 1 # Bowel Movements 1 Weight 95.254 kg 95.254 kg Results - Lab Results Most recent lab results Calcium 9.0 mg/dL (8.4-10.2) 06/19/22 07:17 Magnesium 2.1 mg/dL (1.6-2.3) 06/19/22 07:17 06/18/22 20:08 06/19/22 07:17 Assessment and Plan Plan: Assessment: 1. Acute kidney injury secondary to ATN secondary to hypotension, ARB, lasix. Creatinine 4.73 on admission and is 4.67 today. Kidney ultrasound from February 2022 showed normal-sized kidneys without hydronephrosis. Kidney cysts were noted. 2. Chronic kidney disease stage IIIB with creatinine 1.4 in July 2021 and 1.8-2 in March 2022. 3. COVID-19 infection. 4. Diabetes mellitus. 5. History of coronary artery disease. 6. History of prostatectomy in August 2021. 7. Metabolic acidosis secondary to acute kidney injury, metformin, and IV fluids. Plan: Maintain IV fluids. Add oral bicarb. Repeat renal ultrasound. Check bladder scan to make sure no urinary retention. Hold antihypertensives including losartan and Lasix. Stop metformin. Check serologies. Follow-up urine culture. Add Rocephin. Continue to monitor renal function and urine output. Thank you for the consultation. I will continue to follow the patient with you during his hospital stay.
[2022-06-19] MEDS: SODIUM BICARBONATE TAB 650 MG TAB PO SCH ×2 (11:36→21:19)
[2022-06-19] MEDS ORDERED: LOSARTAN 25 MG TAB PO SCH (12:00)
--- NOTE | 2022-06-19 12:06 | US ---
EXAMINATION TYPE: US kidneys/renal and bladder DATE OF EXAM: 06/19/2022 COMPARISON: 02/22/22 CLINICAL HISTORY: Acute kidney infection. EXAM MEASUREMENTS: Right Kidney: 11.3 x 4.9 x 4.5 cm Left Kidney: 14.7 x 6.5 x 5.7 cm Right Kidney: Anechoic circumscribed mass upper pole (visualized on prior) 1.6 x 1.5 x 1.6cm. Left Kidney: Multiple subcentimeter simple appearing cysts, largest measured (visualized prior) 2.2 x 2.0 x 2.0cm. Slight pelviectasis at hilum. Left kidney limited view due to overlying bowel gas, p atient unable to change position. Bladder: Non distended Bilateral Jets seen: No Incidental 2.6cm stone in gallbladder present (visualized on prior) IMPRESSION: 1. Cholelithiasis. 2. Bilateral renal cysts.
[2022-06-19] MEDS: SODIUM CHLORIDE 0.9% 1,000 ML IV SCH (12:43)
[2022-06-19] MEDS: METOPROLOL TARTRATE 12.5 MG TAB PO SCH ×2 (12:44→21:19)
[2022-06-19] MEDS ORDERED: DEXTROSE 50% SYRINGE 50 ML IVP PRN ×2 (14:36)
--- NOTE | 2022-06-19 14:39 | P.HPIM ---
History of Present Illness H&P Date: 06/19/22 Chief Complaint: Weakness This is a pleasant 76-year-old patient who follows with Dr. Aden. 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 Patient presents feeling weak and tired. Has had a slight cough. Clear sputum. Some chills. Decreased appetite. No diarrhea. Tired and rundown. Found to be covered positive. No hypoxia. Found to have worsening renal failure. Put on IV fluids. Nephrology was consulted. at the bedside Review of systems: GEN.: Tired, decreased appetite EYES: None HEENT: None NECK: None RESPIRATORY: None CARDIOVASCULAR: None GASTROINTESTINAL: None GENITOURINARY: None MUSCULOSKELETAL: Joint pains LYMPHATICS: None HEMATOLOGICAL: None PSYCHIATRY: None NEUROLOGICAL: None Past medical history to include: CAD with bypass and December 2020, diabetes, GERD, hypertension, hyperlipidemia, osteomyelitis, BPH with IDC, aortic valve replacement December 2020, open pacemaker on 06/19/2021 for AV consuelo block second-degree Social history: Patient smoked for about 16 years stopped in [id number]. One pack a day. No alcohol. . Family history: Lung cancer Physical examination: VITAL SIGNS: 98.1, 76, 16, 90/58, 97% room air GENERAL: Reclining in bed, awake, tired EYES: Pupils equal. Conjunctiva normal. HEENT: External appearance of nose and ears normal, oral cavity grossly normal. NECK: JVD not raised; masses not palpable. HEART: First and second heart sounds are normal; no edema. LUNGS: Respiratory rate normal; clear to auscultation. Pacemaker ABDOMEN: Soft, nontender, liver spleen not palpable, no masses palpable. PSYCH: Alert and oriented x3; mood and affect normal. MUSCULOSKELETAL:No Clubbing/cyanosis;muscles-grossly intact. Evidence of OA NEUROLOGICAL: Cranial nerves grossly intact; no facial asymmetry, power and sensation grossly intact. LYMPHATICS: No lymph nodes palpable in the axilla and neck INVESTIGATIONS, reviewed in the clinical context: White count 6.6 hemoglobin 11.8 platelets 118 potassium 4.4 BUN 77 creatinine 4.73 UA: Leukoesterase large double obesity 182 squamous epithelial cells 1 nitrite negative Influenza type A/diabetes/RSV: Not detected COVID-19 PCR: Detected EKG tracing personally reviewed by me-ventricular pacemaker Chest x-ray film personally reviewed by me-cardiomegaly. Possibly some chronic changes Previous labs: 06/26/2021: Creatinine 1.17 Assessment and plan: -Acute kidney injury possibly combination of prerenal and ATN. Decreased oral intake and also patient is on Lasix, losartan, Glucophage Renal ultrasound. IV fluids. Consult nephrology. -Hypotension from volume loss IV fluids -COVID-19, no hypoxia Supportive care -Essential hypertension, currently blood pressure running low Hold antihypertensives -Acute medical asthenia from kidney injury -CAD with a history of bypass and December 2020 Plavix. Hold Toprol XL because of low blood pressure. -Quadruple coronary bypass and aortic valve replacement with bioprosthetic valve on December 07 -Hyperlipidemia Crestor 20 mg a day -Chronic congestive heart failure from ischemic cardiomyopathy, diastolic dysfunction EF 50-60%- Hold diuretics -Primary osteoarthritis Pain medications as needed -Diabetes mellitus type 2 on oral hypoglycemic, . Hold metformin. Follow Accu-Cheks. Care was discussed with the patient and at the bedside. IV fluids. Hold and hypotensive. 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 Toth H & P Last Myocardial Infarction Date:: 12/01/20 History of Any Multi-Drug Resistant Organisms: None Reported Past Surgical History: Adenoidectomy, Cardiac Ablation, Cardiac Valve Replacement, Coronary Bypass/CABG, EPS, Heart Catheterization, Heart Catheterization With Stent, Pacemaker, Prostate Surgery, Tonsillectomy Additional Past Surgical History / Comment(s): aortic valve replacement December 2020. 2 stents pacemaker placed on 06/19/21, prostate removed 08/2021 Past Anesthesia/Blood Transfusion Reactions: No Reported Reaction Date of Last Stent Placement:: 12/07/20 Type of Cardiac Device: Biventricular Pacemaker Device Placement Date:: 06/19/21 Past Psychological History: No Psychological Hx Reported Smoking Status: Former smoker Past Alcohol Use History: None Reported Additional Past Alcohol Use History / Comment(s): STARTED SMOKING AT AGE 15 QUIT 1975 SMOKED 1PPD Past Drug Use History: None Reported - Past Family History Sister(s) Family Medical History: Cancer Additional Family Medical History / Comment(s): 2 SISTERS HAD LUNG CANCER. Medications and Allergies Home Medications Medication Instructions Recorded Confirmed Type Rosuvastatin Calcium [Crestor] 20 mg PO DAILY 12/02/20 06/18/22 History Clopidogrel [Plavix] 75 mg PO DAILY #30 tab 12/13/20 06/18/22 Rx Furosemide [Lasix] 20 mg PO Q48H 06/18/21 06/18/22 History Metoprolol Succinate (ER) [Toprol 50 mg PO DAILY 06/24/21 06/18/22 History XL] metFORMIN HCL [Glucophage] 500 mg PO BID-W/MEALS 06/24/21 06/18/22 History Apixaban [Eliquis] 5 mg PO BID 06/25/21 06/18/22 History Amiodarone [Cordarone] 100 mg PO DAILY 06/18/22 06/18/22 History Ascorbic Acid [Vitamin C] 500 mg PO DAILY 06/18/22 06/18/22 History Beta-Carotene [Beta Carotene] 25,000 unit PO DAILY 06/18/22 06/18/22 History Losartan Potassium 50 mg PO DAILY 06/18/22 06/18/22 History Multivit-Min/FA/Lycopen/Lutein 1 tab PO DAILY 06/18/22 06/18/22 History [Centrum Silver Men Tablet] glipiZIDE 2.5 mg PO BID 06/18/22 06/18/22 History Allergies Allergy/AdvReac Type Severity Reaction Status Date / Time ibuprofen AdvReac TOLD NOT Verified 06/18/22 19:[address] BECAUSE OF HIS KIDNEYS Physical Exam Vitals: Vital Signs Temp Pulse Pulse Resp BP BP Pulse Ox 06/19/22 07:43 98.1 F 76 16 90/58 97 06/19/22 01:55 97.5 F L 72 17 103/65 97 06/18/22 23:41 98.8 F 72 18 101/63 98 06/18/22 23:20 75 18 110/82 98 06/18/22 22:46 100 F H 73 20 122/71 98 06/18/22 21:45 100.6 F H 75 18 118/74 98 06/18/22 19:51 101.1 F H 68 15 136/75 100 Intake and Output 06/18/22 06/19/22 06/19/22 22:59 06:59 14:59 Output Total 150 Balance -150 Output: Urine 150 Other: Voiding Method Toilet # Voids 1 # Bowel Movements 1 Weight 95.254 kg 95.254 kg Results CBC & Chem 7: 06/18/22 20:08 06/19/22 07:17 Labs: Abnormal Lab Results - Last 24 Hours (Table) 06/18/22 06/18/22 06/18/22 Range/Units 20:05 20:08 20:08 RBC 3.81 L (4.30-5.90) m/uL Hgb 11.8 L (13.0-17.5) gm/dL Hct 34.5 L (39.0-53.0) % Plt Count 118 L (150-450) k/uL Lymphocytes # 0.4 L (1.0-4.8) k/uL APTT 32.5 H (22.0-30.0) sec Sodium (137-145) mmol/L Chloride (98-107) mmol/L Carbon Dioxide (22-30) mmol/L BUN (9-20) mg/dL Creatinine (0.66-1.25) mg/dL Glucose (74-99) mg/dL POC Glucose (mg/dL) (70-110) mg/dL ALT (4-49) U/L Alkaline Phosphatase (38-126) U/L Albumin (3.5-5.0) g/dL Urine Protein (Negative) Urine Blood (Negative) Ur Leukocyte Esterase (Negative) Urine RBC (0-5) /hpf Urine WBC (0-5) /hpf Urine WBC Clumps (None) /hpf Urine Bacteria (None) /hpf Urine Mucus (None) /hpf SARS-CoV-2 (PCR) Detected A (Not Detectd) 06/18/22 06/18/22 06/19/22 Range/Units 20:08 22:46 06:24 RBC (4.30-5.90) m/uL Hgb (13.0-17.5) gm/dL Hct (39.0-53.0) % Plt Count (150-450) k/uL Lymphocytes # (1.0-4.8) k/uL APTT (22.0-30.0) sec Sodium 135 L (137-145) mmol/L Chloride (98-107) mmol/L Carbon Dioxide 16 L (22-30) mmol/L BUN 77 H (9-20) mg/dL Creatinine 4.73 H (0.66-1.25) mg/dL Glucose 127 H (74-99) mg/dL POC Glucose (mg/dL) 151 H (70-110) mg/dL ALT 71 H (4-49) U/L Alkaline Phosphatase 149 H (38-126) U/L Albumin 3.1 L (3.5-5.0) g/dL Urine Protein 2+ H (Negative) Urine Blood Large H (Negative) Ur Leukocyte Esterase Large H (Negative) Urine RBC >182 H (0-5) /hpf Urine WBC >182 H (0-5) /hpf Urine WBC Clumps Many H (None) /hpf Urine Bacteria Occasional H (None) /hpf Urine Mucus Rare H (None) /hpf SARS-CoV-2 (PCR) (Not Detectd) 06/19/22 Range/Units 07:17 RBC (4.30-5.90) m/uL Hgb (13.0-17.5) gm/dL Hct (39.0-53.0) % Plt Count (150-450) k/uL Lymphocytes # (1.0-4.8) k/uL APTT (22.0-30.0) sec Sodium (137-145) mmol/L Chloride 109 H (98-107) mmol/L Carbon Dioxide 19 L (22-30) mmol/L BUN 75 H (9-20) mg/dL Creatinine 4.67 H (0.66-1.25) mg/dL Glucose 134 H (74-99) mg/dL POC Glucose (mg/dL) (70-110) mg/dL ALT (4-49) U/L Alkaline Phosphatase (38-126) U/L Albumin (3.5-5.0) g/dL Urine Protein (Negative) Urine Blood (Negative) Ur Leukocyte Esterase (Negative) Urine RBC (0-5) /hpf Urine WBC (0-5) /hpf Urine WBC Clumps (None) /hpf Urine Bacteria (None) /hpf Urine Mucus (None) /hpf SARS-CoV-2 (PCR) (Not Detectd) Thrombosis Risk Factor Assmnt - Choose All That Apply Any of the Below Risk Factors Present?: Yes Each Factor Represents 1 point: Obesity (BMI >25) Other Risk Factors: Yes Each Risk Factor Represents 3 Points: Age 75 years or older Thrombosis Risk Factor Assessment Total Risk Factor Score: 4 Thrombosis Risk Factor Assessment Level: Moderate Risk
[2022-06-19 16:07] LABS: Glucose,Whole Blood 199 mg/dL (70-110)
[2022-06-19 16:26] LABS: Hepatitis A Antibody IgM Nonreactive (Nonreactive); Hepatitis B Core IgM Nonreactive (Nonreactive); Hepatitis B Surface Antigen Nonreactive (Nonreactive); Hepatitis C IgG Antibody Nonreactive (Nonreactive)
[2022-06-19] MEDS: INSULIN ASPART (NovoLOG) 100 UNIT/ML VIAL SQ SCH (17:16)
[2022-06-19 21:13] LABS: Glucose,Whole Blood 188 mg/dL (70-110)
[2022-06-19] MEDS: TAMSULOSIN 0.4 MG CAP.ER.24H PO SCH (21:19)
[2022-06-20 00:45] LABS: DNA Double-Stranded NEGATIVE (NEGATIVE)
[2022-06-20 06:13] LABS: Glucose,Whole Blood 163 mg/dL (70-110)
[2022-06-20] MEDS: INSULIN ASPART (NovoLOG) 100 UNIT/ML VIAL SQ SCH ×3 (06:39→17:02)
[2022-06-20] MEDS: SODIUM CHLORIDE 0.9% 1,000 ML IV SCH ×3 (07:58→16:38)
[2022-06-20 08:08] LABS: Protein, Total 5.7 g/dL (6.2-8.2)
[2022-06-20 08:56] LABS: Free Lambda Lt Chain Qnt, Seru 8.36 mg/dL (0.57-2.63)
[2022-06-20] MEDS: AMIODARONE 200 MG TAB PO SCH ×2 (09:21→20:38)
[2022-06-20] MEDS: ATORVASTATIN 40 MG TAB PO SCH (09:21)
[2022-06-20] MEDS: MULTIVITAMINS, THERA 1 EACH TAB PO SCH (09:21)
[2022-06-20] MEDS: APIXABAN 5 MG TAB PO SCH ×2 (09:21→20:38)
[2022-06-20] MEDS: CLOPIDOGREL 75 MG TAB PO SCH (09:21)
[2022-06-20] MEDS: SODIUM BICARBONATE TAB 650 MG TAB PO SCH ×2 (09:21→20:38)
[2022-06-20] MEDS: CHOLECALCIFEROL 25 MCG (1000 IU) TABLET PO SCH (09:22)
[2022-06-20] MEDS: METOPROLOL TARTRATE 12.5 MG TAB PO SCH ×2 (09:24→20:38)
[2022-06-20 11:06] LABS: African American GFR (CKD) 15.5 (60.0-200.0); BUN/Creat Ratio 16.17 Ratio (12.00-20.00); Blood Urea Nitrogen 65.8 mg/dL (9.0-27.0); Calcium 9.2 mg/dL (8.7-10.3); Carbon Dioxide 19.3 mmol/L (20.0-27.5); Non-African American GFR(CKD) 13.3 (60.0-200.0); Potassium 3.7 mmol/L (3.5-5.5)
[2022-06-20 11:09] LABS: Glucose,Whole Blood 205 mg/dL (70-110)
--- NOTE | 2022-06-20 11:19 | P.PN ---
Subjective Patient is seen in follow-up for acute kidney injury on chronic kidney disease. Renal function a little better. On room air. Blood pressure stable. Has been voiding. No vomiting or diarrhea. Denies chest pain or shortness of breath. Vital signs are stable. General: No acute distress. HEENT: Head exam is unremarkable. LUNGS: Breath sounds decreased. HEART: Rate and Rhythm are regular. ABDOMEN: Soft, no distention. EXTREMITITES: No edema. Objective - Vital Signs Vital signs: Vital Signs Temp 97.4 F L 06/20/22 08:00 Pulse 65 06/20/22 08:00 Resp 16 06/20/22 08:00 BP 118/68 06/20/22 08:00 Pulse Ox 96 06/20/22 08:00 FiO2 Intake & Output 06/19/22 06/20/22 06/20/22 18:59 06:59 18:59 Other: Voiding Method Toilet # Voids 2 5 1 # Bowel Movements 2 - Labs CBC & Chem 7: 06/18/22 20:08 06/20/22 07:44 Labs: Abnormal Lab Results - Last 24 Hours (Table) 06/19/22 06/19/22 06/19/22 Range/Units 11:07 16:05 21:12 Carbon Dioxide (20.0-27.5) mmol/L BUN (9.0-27.0) mg/dL Creatinine (0.6-1.5) mg/dL Est GFR (CKD-EPI)AfAm (60.0-200.0) Est GFR (CKD-EPI)NonAf (60.0-200.0) Glucose (70-110) mg/dL POC Glucose (mg/dL) 199 H 188 H (70-110) mg/dL Total Protein (PEP) 5.7 L (6.2-8.2) g/dL Free [place] LC, Quant 12.70 H (0.33-1.94) mg/dL Free Lambda LC, Quant 8.36 H (0.57-2.63) mg/dL 06/20/22 06/20/22 06/20/22 Range/Units 06:12 07:44 11:07 Carbon Dioxide 19.3 L (20.0-27.5) mmol/L BUN 65.8 H (9.0-27.0) mg/dL Creatinine 4.1 H (0.6-1.5) mg/dL Est GFR (CKD-EPI)AfAm 15.5 L (60.0-200.0) Est GFR (CKD-EPI)NonAf 13.3 L (60.0-200.0) Glucose 147 H (70-110) mg/dL POC Glucose (mg/dL) 163 H 205 H (70-110) mg/dL Total Protein (PEP) (6.2-8.2) g/dL Free [place] LC, Quant (0.33-1.94) mg/dL Free Lambda LC, Quant (0.57-2.63) mg/dL Microbiology - Last 24 Hours (Table) 06/18/22 22:46 Urine Culture - Preliminary Urine,Voided Assessment and Plan Plan: Assessment: 1. Acute kidney injury secondary to ATN secondary to hypotension, ARB, lasix. Creatinine 4.73 on admission and is 4.1 today. Kidney ultrasound showed normal-sized kidneys without hydronephrosis. Kidney cysts were noted. 2. Chronic kidney disease stage IIIB with creatinine 1.4 in July 2021 and 1.8-2 in March 2022. 3. COVID-19 infection. 4. Diabetes mellitus. 5. History of coronary artery disease. 6. History of prostatectomy in August 2021. 7. Metabolic acidosis secondary to acute kidney injury, metformin, and IV fluids. Stable. On oral bicarb. 8. Right kidney mass. Urology consulted. Plan: Maintain IV fluids. Monitor bladder scans to make sure no urinary retention. Hold antihypertensives including losartan and Lasix. Stopped metformin. Follow-up serologies - negative so far. Follow-up urine culture. Continue to monitor renal function and urine output. Check phosphorus level. Check protein to creatinine ratio.
[2022-06-20 12:51] LABS: Creatinine,Urine Random 65.1 mg/dL; Protein/Creatinine Ratio,Urine 1.859
[2022-06-20 13:57] LABS: C-ANCA <1:20 Titer (<1:20)
--- NOTE | 2022-06-20 14:09 | P.GSCN ---
History of Present Illness Consult date: 06/20/22 Reason for Consult: Right kidney mass Requesting physician: Edis Horn History of present illness: The patient is a 76-year-old male with a past medical history significant for CAD, [place], A fib, Diabetes, GERD, hypertension, hyperlipidemia, AVR, and pacemaker implantation. BPH and urinary retention with IDC. In 08/2021 underwent an uncomplicated robotic-assisted laparoscopic simple prostatectomy . The patient presented to the emergency department on 06/18/22 with weakness and cough. He was found to be COVID-19 positive and has an YESICA on chronic kidney disease. Nephrology has been following. Work up included a Renal ultrasound which showed right sided anechoic circumscribed mass. The left kidney had multiple subcentimeter simple appearing cysts. denies any flank pain or gross hematuria. Has been complaining of urgency with occasional urge incontinence since surgery. Review of Systems - Constitutional Reports chills, Reports poor appetite, Reports weakness - Cardiovascular Reports leg edema, Denies chest pain, Denies shortness of breath - Respiratory Reports cough - Genitourinary Denies dysuria, Denies hematuria Past Medical History Past Medical History: Coronary Artery Disease (CAD), Diabetes Mellitus, GERD/Reflux, Hyperlipidemia, Hypertension, Osteoarthritis (OA), Prostate Disorder, Renal Disease Additional Past Medical History / Comment(s): has IDC due to enlarged prostate, see Dr. Toth H & P Last Myocardial Infarction Date:: 12/01/20 History of Any Multi-Drug Resistant Organisms: None Reported Past Surgical History: Adenoidectomy, Cardiac Ablation, Cardiac Valve Replacement, Coronary Bypass/CABG, EPS, Heart Catheterization, Heart Catheterization With Stent, Pacemaker, Prostate Surgery, Tonsillectomy Additional Past Surgical History / Comment(s): aortic valve replacement December 2020. 2 stents pacemaker placed on 06/19/21, prostate removed 08/2021 Past Anesthesia/Blood Transfusion Reactions: No Reported Reaction Date of Last Stent Placement:: 12/07/20 Type of Cardiac Device: Biventricular Pacemaker Device Placement Date:: 06/19/21 Past Psychological History: No Psychological Hx Reported Smoking Status: Former smoker Past Alcohol Use History: None Reported Additional Past Alcohol Use History / Comment(s): STARTED SMOKING AT AGE 15 QUIT 1975 SMOKED 1PPD Past Drug Use History: None Reported - Past Family History Sister(s) Family Medical History: Cancer Additional Family Medical History / Comment(s): 2 SISTERS HAD LUNG CANCER. Medications and Allergies Home Medications Medication Instructions Recorded Confirmed Type Rosuvastatin Calcium [Crestor] 20 mg PO DAILY 12/02/20 06/18/22 History Clopidogrel [Plavix] 75 mg PO DAILY #30 tab 12/13/20 06/18/22 Rx Furosemide [Lasix] 20 mg PO Q48H 06/18/21 06/18/22 History Metoprolol Succinate (ER) [Toprol 50 mg PO DAILY 06/24/21 06/18/22 History XL] metFORMIN HCL [Glucophage] 500 mg PO BID-W/MEALS 06/24/21 06/18/22 History Apixaban [Eliquis] 5 mg PO BID 06/25/21 06/18/22 History Amiodarone [Cordarone] 100 mg PO DAILY 06/18/22 06/18/22 History Ascorbic Acid [Vitamin C] 500 mg PO DAILY 06/18/22 06/18/22 History Beta-Carotene [Beta Carotene] 25,000 unit PO DAILY 06/18/22 06/18/22 History Losartan Potassium 50 mg PO DAILY 06/18/22 06/18/22 History Multivit-Min/FA/Lycopen/Lutein 1 tab PO DAILY 06/18/22 06/18/22 History [Centrum Silver Men Tablet] glipiZIDE 2.5 mg PO BID 06/18/22 06/18/22 History Allergies Allergy/AdvReac Type Severity Reaction Status Date / Time ibuprofen AdvReac TOLD NOT Verified 06/18/22 19:[address] BECAUSE OF HIS KIDNEYS Surgical - Exam Vital Signs Temp Pulse Resp BP Pulse Ox 101.1 F H 68 15 136/75 100 06/18/22 19:51 06/18/22 19:51 06/18/22 19:51 06/18/22 19:51 06/18/22 19:51 General: Well developed, well nourished. No acute distress. Chronically ill appearing HEENT: Head is atraumatic, normocephalic Lungs: Respirations even and nonlabored. Abdomen/GI: Soft. Nondistended, no abdominal tenderness. : No suprapubic tenderness. Patient has brief on Vascular: trace peripheral edema Skin: Warm and dry Neurologic: CN II-XII grossly intact. No focal deficits. Psychiatric: Appropriate mood and affect. Results - Labs 06/18/22 20:08 06/20/22 07:44 Abnormal Lab Results - Last 24 Hours (Table) 06/19/22 06/19/22 06/19/22 Range/Units 11:07 16:05 21:12 Carbon Dioxide (20.0-27.5) mmol/L BUN (9.0-27.0) mg/dL Creatinine (0.6-1.5) mg/dL Est GFR (CKD-EPI)AfAm (60.0-200.0) Est GFR (CKD-EPI)NonAf (60.0-200.0) Glucose (70-110) mg/dL POC Glucose (mg/dL) 199 H 188 H (70-110) mg/dL Total Protein (PEP) 5.7 L (6.2-8.2) g/dL Free [place] LC, Quant 12.70 H (0.33-1.94) mg/dL Free Lambda LC, Quant 8.36 H (0.57-2.63) mg/dL 06/20/22 06/20/22 06/20/22 Range/Units 06:12 07:44 11:07 Carbon Dioxide 19.3 L (20.0-27.5) mmol/L BUN 65.8 H (9.0-27.0) mg/dL Creatinine 4.1 H (0.6-1.5) mg/dL Est GFR (CKD-EPI)AfAm 15.5 L (60.0-200.0) Est GFR (CKD-EPI)NonAf 13.3 L (60.0-200.0) Glucose 147 H (70-110) mg/dL POC Glucose (mg/dL) 163 H 205 H (70-110) mg/dL Total Protein (PEP) (6.2-8.2) g/dL Free [place] LC, Quant (0.33-1.94) mg/dL Free Lambda LC, Quant (0.57-2.63) mg/dL Microbiology - Last 24 Hours (Table) 06/18/22 22:46 Urine Culture - Preliminary Urine,Voided Gram Neg Bacilli Diabetes panel 06/20/22 Range/Units 07:44 Sodium 140 (135-145) mmol/L Potassium 3.7 (3.5-5.5) mmol/L Chloride 108 (96-109) mmol/L Carbon Dioxide 19.3 L (20.0-27.5) mmol/L BUN 65.8 H (9.0-27.0) mg/dL Creatinine 4.1 H (0.6-1.5) mg/dL Glucose 147 H (70-110) mg/dL Calcium 9.2 (8.7-10.3) mg/dL Calcium panel 06/20/22 Range/Units 07:44 Calcium 9.2 (8.7-10.3) mg/dL Pituitary panel 06/20/22 Range/Units 07:44 Sodium 140 (135-145) mmol/L Potassium 3.7 (3.5-5.5) mmol/L Chloride 108 (96-109) mmol/L Carbon Dioxide 19.3 L (20.0-27.5) mmol/L BUN 65.8 H (9.0-27.0) mg/dL Creatinine 4.1 H (0.6-1.5) mg/dL Glucose 147 H (70-110) mg/dL Calcium 9.2 (8.7-10.3) mg/dL Adrenal panel 06/20/22 Range/Units 07:44 Sodium 140 (135-145) mmol/L Potassium 3.7 (3.5-5.5) mmol/L Chloride 108 (96-109) mmol/L Carbon Dioxide 19.3 L (20.0-27.5) mmol/L BUN 65.8 H (9.0-27.0) mg/dL Creatinine 4.1 H (0.6-1.5) mg/dL Glucose 147 H (70-110) mg/dL Calcium 9.2 (8.7-10.3) mg/dL - Imaging US - abdomen: report reviewed US - kidney/bladder: report reviewed Assessment and Plan Assessment: The patient is sitting up in a chair and his is present. The patient denies any hematuria or dysuria. He denies any incontinence, but does report some dribbling of urine since his prostatectomy. He wears a brief and a pad. There is no family history of renal cell or bladder cancer. Urine culture growing gram negative bacilli. Creatinine starting to trend down and is 4.1 today. Ultrasound findings discussed with the patient and his . It was decided that the patient should follow up as outpatient in 6 months for a repeat ultrasound to re-evaluate the right kidney mass. The patient has a permanent pacemaker and can not have a MRI. Plan: - Monitor Creatinine - Continue Antibiotics - Monitor PVR -Can D/C flomax given his previous robotic simple prostatectomy - Follow up on an outpatient basis - Start Vesicare upon discharge -ultrasound in 6 months to evaluate the left renal lesion Impression and plan of care have been directed as dictated by the signing physician. Lorraine Rodriguez nurse practitioner acting as scribe for signing physician. Lorraine Rodriguez [facility] Palliative Care/Urology Spectralink [phone] Email: [email or web address] I personally performed and participated in the history, physical, the decision making, I agree with the assessment and plan of [employer]
[2022-06-20 15:59] LABS: Glucose,Whole Blood 235 mg/dL (70-110)
--- NOTE | 2022-06-20 16:20 | P.PN ---
Progress Note - Text Progress Note Date: 06/20/22 Chief Complaint: Weakness This is a pleasant 76-year-old patient who follows with Dr. Aden. 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 Patient presents feeling weak and tired. Has had a slight cough. Clear sputum. Some chills. Decreased appetite. No diarrhea. Tired and rundown. Found to be covered positive. No hypoxia. Found to have worsening renal failure. Put on IV fluids. Nephrology was consulted. at the bedside 06/20/2022: Some drop in creatinine. Oral intake better. Eating about 35%. Increase IV fluids 125mL an hour. Active Medications Amiodarone HCl (Amiodarone 200 Mg Tab) 200 mg PO BID [facility] Last Admin: 06/20/22 09:21 Dose: 200 mg Apixaban (Apixaban 5 Mg Tab) 5 mg PO BID [facility]; Protocol Last Admin: 06/20/22 09:21 Dose: 5 mg Atorvastatin Calcium (Atorvastatin 40 Mg Tab) 40 mg PO DAILY [facility] Last Admin: 06/20/22 09:21 Dose: 40 mg Cholecalciferol (Cholecalciferol 25 Mcg (1000 Iu) Tablet) 25 mcg PO DAILY [facility] Last Admin: 06/20/22 09:22 Dose: 25 mcg Clopidogrel Bisulfate (Clopidogrel 75 Mg Tab) 75 mg PO DAILY [facility] Last Admin: 06/20/22 09:21 Dose: 75 mg Dextrose/Water (Dextrose 50% Syringe 50 Ml) 25 ml IVP PER PROTOCOL PRN; Protocol PRN Reason: Hypoglycemia Dextrose/Water (Dextrose 50% Syringe 50 Ml) 50 ml IVP PER PROTOCOL PRN; Protocol PRN Reason: Hypoglycemia Sodium Chloride (Saline 0.9%) 1,000 mls @ 100 mls/hr IV .Q10H [facility] Last Admin: 06/20/22 10:15 Dose: 75 mls/hr Ceftriaxone Sodium 1 gm/ (Sodium Chloride) 50 mls @ 100 mls/hr IVPB Q24HR [facility]; Protocol Stop: 06/22/22 11:31 Last Admin: 06/20/22 09:21 Dose: 100 mls/hr Insulin Aspart (Insulin Aspart (Novolog) 100 Unit/Ml Vial) 0 unit SQ AC-TID [facility]; Protocol Last Admin: 06/20/22 11:40 Dose: 4 unit Metoprolol Tartrate (Metoprolol Tartrate 12.5 Mg Tab) 12.5 mg PO BID [facility] Last Admin: 06/20/22 09:24 Dose: 12.5 mg Multivitamins (Multivitamins, Thera 1 Each Tab) 1 each PO DAILY [facility] Last Admin: 06/20/22 09:21 Dose: 1 each Naloxone HCl (Naloxone 0.4 Mg/Ml 1 Ml Vial) 0.2 mg IV Q2M PRN PRN Reason: Opioid Reversal Sodium Bicarbonate (Sodium Bicarbonate Tab 650 Mg Tab) 650 mg PO BID [facility] Last Admin: 06/20/22 09:21 Dose: 650 mg Tamsulosin HCl (Tamsulosin 0.4 Mg Cap.Er.24h) 0.4 mg PO HS [facility] Last Admin: 06/19/22 21:19 Dose: 0.4 mg Past medical history to include: CAD with bypass and December 2020, diabetes, GERD, hypertension, hyperlipidemia, osteomyelitis, BPH with IDC, aortic valve replacement December 2020, open pacemaker on 06/19/2021 for AV consuelo block second-degree Social history: Patient smoked for about 16 years stopped in 9075. One pack a day. No alcohol. . Family history: Lung cancer Physical examination: VITAL SIGNS: 97.4, 65, 16, 118/68, 96% room air GENERAL: Reclining in bed, awake, EYES: Pupils equal. Conjunctiva normal. HEENT: External appearance of nose and ears normal, oral cavity grossly normal. NECK: JVD not raised; masses not palpable. HEART: First and second heart sounds are normal; no edema. LUNGS: Respiratory rate normal; clear to auscultation. Pacemaker ABDOMEN: Soft, nontender, liver spleen not palpable, no masses palpable. PSYCH: Alert and oriented x3; mood and affect normal. MUSCULOSKELETAL:No Clubbing/cyanosis;muscles-grossly intact. Evidence of OA INVESTIGATIONS, reviewed in the clinical context: 06/20/2022: Potassium 3.7 BUN 65 creatinine 4.1 Urine protein creatinine ratio 1.8 Hepatitis A IgM/hepatitis B surface antigen/hepatitis B core IgM antibody/hepatitis C IgG antibody: Not reactive White count 6.6 hemoglobin 11.8 platelets 118 potassium 4.4 BUN 77 creatinine 4.73 UA: Leukoesterase large double obesity 182 squamous epithelial cells 1 nitrite negative Influenza type A/diabetes/RSV: Not detected COVID-19 PCR: Detected EKG tracing personally reviewed by me-ventricular pacemaker Chest x-ray film personally reviewed by me-cardiomegaly. Possibly some chronic changes Previous labs: 06/26/2021: Creatinine 1.17 Assessment and plan: -Acute kidney injury possibly combination of prerenal and ATN. Decreased oral intake and also patient is on Lasix, losartan, Glucophage: Slow to respond Renal ultrasound. Increase IV fluids. Consult nephrology. -Hypotension from volume loss: Slow to respond IV fluids -COVID-19, no hypoxia Supportive care -Essential hypertension, currently blood pressure running low Hold antihypertensives -Acute medical asthenia from kidney injury -CAD with a history of bypass and December 2020 Plavix. Hold Toprol XL because of low blood pressure. -Quadruple coronary bypass and aortic valve replacement with bioprosthetic valve on December 07 -Hyperlipidemia Crestor 20 mg a day -Chronic congestive heart failure from ischemic cardiomyopathy, diastolic dysfunction EF 50-60%- Hold diuretics -Primary osteoarthritis Pain medications as needed -Diabetes mellitus type 2 on oral hypoglycemic, . Hold metformin. Follow Accu-Cheks. Increase IV fluids. Oral intake improving. Follow renal function. Follow with nephrology. Blood pressures to lower side.
[2022-06-20 19:56] LABS: Glucose,Whole Blood 218 mg/dL (70-110)
[2022-06-20] MEDS: TAMSULOSIN 0.4 MG CAP.ER.24H PO SCH (20:38)
[2022-06-21 06:00] LABS: Glucose,Whole Blood 206 mg/dL (70-110)
[2022-06-21] MEDS: INSULIN ASPART (NovoLOG) 100 UNIT/ML VIAL SQ SCH ×3 (06:37→16:47)
[2022-06-21] MEDS: SODIUM CHLORIDE 0.9% 1,000 ML IV SCH (08:57)
[2022-06-21] MEDS: AMIODARONE 200 MG TAB PO SCH ×2 (09:07→22:29)
[2022-06-21] MEDS: METOPROLOL TARTRATE 12.5 MG TAB PO SCH ×2 (09:07→22:29)
[2022-06-21] MEDS: APIXABAN 5 MG TAB PO SCH ×2 (09:07→22:29)
[2022-06-21] MEDS: MULTIVITAMINS, THERA 1 EACH TAB PO SCH (09:07)
[2022-06-21] MEDS: SODIUM BICARBONATE TAB 650 MG TAB PO SCH ×2 (09:07→22:29)
[2022-06-21] MEDS: ATORVASTATIN 40 MG TAB PO SCH (09:07)
[2022-06-21] MEDS: CHOLECALCIFEROL 25 MCG (1000 IU) TABLET PO SCH (09:07)
[2022-06-21] MEDS: CLOPIDOGREL 75 MG TAB PO SCH (09:07)
--- NOTE | 2022-06-21 10:52 | P.PN ---
Subjective Patient is seen in follow-up for acute kidney injury on chronic kidney disease. Renal function improving from admission. Creatinine 4.1 yesterday. On room air. Blood pressure stable. Has been voiding. No vomiting or diarrhea. Denies chest pain or shortness of breath. Oral intake is improved. Vital signs are stable. General: No acute distress. HEENT: Head exam is unremarkable. LUNGS: Breath sounds decreased. HEART: Rate and Rhythm are regular. ABDOMEN: Soft, no distention. EXTREMITITES: No edema. Objective - Vital Signs Vital signs: Vital Signs Temp 97.9 F 06/21/22 07:08 Pulse 90 06/21/22 07:08 Resp 19 06/21/22 07:08 BP 115/64 06/21/22 07:08 Pulse Ox 97 06/21/22 07:08 FiO2 Intake & Output 06/20/22 06/21/22 06/21/22 18:59 06:59 18:59 Output Total 1000 300 Balance -1000 -300 Output: Urine 1000 300 Other: Voiding Method Toilet # Voids 2 # Bowel Movements 1 - Labs CBC & Chem 7: 06/18/22 20:08 06/20/22 07:44 Labs: Abnormal Lab Results - Last 24 Hours (Table) 06/20/22 06/20/22 06/20/22 Range/Units 07:44 11:07 15:58 Carbon Dioxide 19.3 L (20.0-27.5) mmol/L BUN 65.8 H (9.0-27.0) mg/dL Creatinine 4.1 H (0.6-1.5) mg/dL Est GFR (CKD-EPI)AfAm 15.5 L (60.0-200.0) Est GFR (CKD-EPI)NonAf 13.3 L (60.0-200.0) Glucose 147 H (70-110) mg/dL POC Glucose (mg/dL) 205 H 235 H (70-110) mg/dL 06/20/22 06/21/22 Range/Units 19:55 05:58 Carbon Dioxide (20.0-27.5) mmol/L BUN (9.0-27.0) mg/dL Creatinine (0.6-1.5) mg/dL Est GFR (CKD-EPI)AfAm (60.0-200.0) Est GFR (CKD-EPI)NonAf (60.0-200.0) Glucose (70-110) mg/dL POC Glucose (mg/dL) 218 H 206 H (70-110) mg/dL Microbiology - Last 24 Hours (Table) 06/18/22 22:46 Urine Culture - Final Urine,Voided Escherichia coli Assessment and Plan Plan: Assessment: 1. Acute kidney injury secondary to ATN secondary to hypotension, ARB, lasix. Creatinine 4.73 on admission - 4.1 yesterday. Uls showed normal-sized kidneys without hydronephrosis. Kidney cysts were noted. 2. Chronic kidney disease stage IIIB with creatinine 1.4 in July 2021 and 1.8-2 in March 2022. Etiology is likely diabetic kidney disease. 3. COVID-19 infection. 4. Diabetes mellitus. 5. History of coronary artery disease. 6. History of prostatectomy in August 2021. 7. Metabolic acidosis secondary to acute kidney injury, metformin, and IV fluids. Stable. On oral bicarb. 8. Right kidney mass. Urology following. 9. E. coli UTI on antibiotics. Plan: Maintain IV fluids - decrease rate to 75 mL an hour. Hold antihypertensives including losartan and Lasix. Stopped metformin. Follow-up serologies - negative so far. UPC 1.8 g. Continue to monitor renal function and urine output. Follow-up phosphorus level. Follow up outpatient 1 week post discharge. UA will be repeated. May need kidney biopsy for definitive diagnosis.
[2022-06-21 11:27] LABS: Glucose,Whole Blood 228 mg/dL (70-110)
[2022-06-21 12:13] LABS: African American GFR (CKD) 20.7 (60.0-200.0); Anion Gap 13.2 mmol/L (10.00-18.00); BUN/Creat Ratio 18.16 Ratio (12.00-20.00); Blood Urea Nitrogen 58.1 mg/dL (9.0-27.0); Carbon Dioxide 18.8 mmol/L (20.0-27.5); Magnesium 1.8 mg/dL (1.5-2.4); Non-African American GFR(CKD) 17.8 (60.0-200.0); Phosphorus 3.1 mg/dL (2.4-5.1); Potassium 3.7 mmol/L (3.5-5.5)
--- NOTE | 2022-06-21 12:50 | P.PN ---
Progress Note - Text Progress Note Date: 06/21/22 Chief Complaint: Weakness This is a pleasant 76-year-old patient who follows with Dr. Aden. 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 Patient presents feeling weak and tired. Has had a slight cough. Clear sputum. Some chills. Decreased appetite. No diarrhea. Tired and rundown. Found to be covered positive. No hypoxia. Found to have worsening renal failure. Put on IV fluids. Nephrology was consulted. at the bedside 06/20/2022: Some drop in creatinine. Oral intake better. Eating about 35%. Increase IV fluids 125mL an hour. 06/21/2022: Up in a chair. Feeling better. Had most of his breakfast. Creatinine coming down IV fluids. Active Medications Amiodarone HCl (Amiodarone 200 Mg Tab) 200 mg PO BID [facility] Last Admin: 06/21/22 09:07 Dose: 200 mg Apixaban (Apixaban 5 Mg Tab) 5 mg PO BID [facility]; Protocol Last Admin: 06/21/22 09:07 Dose: 5 mg Atorvastatin Calcium (Atorvastatin 40 Mg Tab) 40 mg PO DAILY [facility] Last Admin: 06/21/22 09:07 Dose: 40 mg Cholecalciferol (Cholecalciferol 25 Mcg (1000 Iu) Tablet) 25 mcg PO DAILY [facility] Last Admin: 06/21/22 09:07 Dose: 25 mcg Clopidogrel Bisulfate (Clopidogrel 75 Mg Tab) 75 mg PO DAILY [facility] Last Admin: 06/21/22 09:07 Dose: 75 mg Dextrose/Water (Dextrose 50% Syringe 50 Ml) 25 ml IVP PER PROTOCOL PRN; Protocol PRN Reason: Hypoglycemia Dextrose/Water (Dextrose 50% Syringe 50 Ml) 50 ml IVP PER PROTOCOL PRN; Protocol PRN Reason: Hypoglycemia Sodium Chloride (Saline 0.9%) 1,000 mls @ 75 mls/hr IV .[id number] [facility] Last Admin: 06/21/22 08:57 Dose: 125 mls/hr Ceftriaxone Sodium 1 gm/ (Sodium Chloride) 50 mls @ 100 mls/hr IVPB Q24HR [facility]; Protocol Stop: 06/22/22 11:31 Last Admin: 06/21/22 09:08 Dose: 100 mls/hr Insulin Aspart (Insulin Aspart (Novolog) 100 Unit/Ml Vial) 0 unit SQ AC-TID [facility]; Protocol Last Admin: 06/21/22 12:29 Dose: 4 unit Metoprolol Tartrate (Metoprolol Tartrate 12.5 Mg Tab) 12.5 mg PO BID [facility] Last Admin: 06/21/22 09:07 Dose: 12.5 mg Multivitamins (Multivitamins, Thera 1 Each Tab) 1 each PO DAILY [facility] Last Admin: 06/21/22 09:07 Dose: 1 each Naloxone HCl (Naloxone 0.4 Mg/Ml 1 Ml Vial) 0.2 mg IV Q2M PRN PRN Reason: Opioid Reversal Sodium Bicarbonate (Sodium Bicarbonate Tab 650 Mg Tab) 650 mg PO BID [facility] Last Admin: 06/21/22 09:07 Dose: 650 mg Past medical history to include: CAD with bypass and December 2020, diabetes, GERD, hypertension, hyperlipidemia, osteomyelitis, BPH with IDC, aortic valve replacement December 2020, open pacemaker on 06/19/2021 for AV consuelo block second-degree Social history: Patient smoked for about 16 years stopped in 9075. One pack a day. No alcohol. . Family history: Lung cancer Physical examination: VITAL SIGNS: 97.9, 90, 19, 115/64, 97% room air GENERAL: Up in a chair, comfortable EYES: Pupils equal. Conjunctiva normal. HEENT: External appearance of nose and ears normal, oral cavity grossly normal. NECK: JVD not raised; masses not palpable. HEART: First and second heart sounds are normal; no edema. LUNGS: Respiratory rate normal; clear to auscultation. Pacemaker ABDOMEN: Soft, nontender, liver spleen not palpable, no masses palpable. PSYCH: Alert and oriented x3; mood and affect normal. MUSCULOSKELETAL:No Clubbing/cyanosis;muscles-grossly intact. Evidence of OA INVESTIGATIONS, reviewed in the clinical context: 06/21/2022: Potassium 3.7 BUN 58.1 creatinine 3.2 06/20/2022: Potassium 3.7 BUN 65 creatinine 4.1 Renal ultrasound: Left kidney multiple simple appearing cyst. Gallstones. Urine protein creatinine ratio 1.8 Hepatitis A IgM/hepatitis B surface antigen/hepatitis B core IgM antibody/hepatitis C IgG antibody: Not reactive White count 6.6 hemoglobin 11.8 platelets 118 potassium 4.4 BUN 77 creatinine 4.73 UA: Leukoesterase large double obesity 182 squamous epithelial cells 1 nitrite negative Influenza type A/diabetes/RSV: Not detected COVID-19 PCR: Detected EKG tracing personally reviewed by me-ventricular pacemaker Chest x-ray film personally reviewed by me-cardiomegaly. Possibly some chronic changes Previous labs: 06/26/2021: Creatinine 1.17 Assessment and plan: -Acute kidney injury possibly combination of prerenal and ATN. Decreased oral intake and also patient is on Lasix, losartan, Glucophage: Slow to respond Admission creatinine 4.7. Today 3.2 . IV fluids. -Hypotension from volume loss: Slow improvement IV fluids -COVID-19, no hypoxia Supportive care -Essential hypertension, currently blood pressure running low Hold antihypertensives -Acute medical asthenia from kidney injury -CAD with a history of bypass and December 2020 Plavix. Hold Toprol XL because of low blood pressure. -Quadruple coronary bypass and aortic valve replacement with bioprosthetic valve on December 07 -Hyperlipidemia Crestor 20 mg a day -Chronic congestive heart failure from ischemic cardiomyopathy, diastolic dysfunction EF 50-60%- Hold diuretics -Primary osteoarthritis Pain medications as needed -Diabetes mellitus type 2 on oral hypoglycemic, . Hold metformin. Follow Accu-Cheks. IV fluids. Oral intake improving. Follow renal function. Discussed with patient.
[2022-06-21] MEDS ORDERED: POTASSIUM CHLORIDE ER 20 MEQ TAB.ER PO STA (13:32)
[2022-06-21] MEDS: LACTATED RINGERS 1,000 ML IV SCH (14:16)
[2022-06-21 16:35] LABS: Glucose,Whole Blood 279 mg/dL (70-110)
[2022-06-21 19:49] LABS: Glucose,Whole Blood 243 mg/dL (70-110)
[2022-06-21] MEDS ORDERED: INSULIN DETEMIR (LEVEMIR) 100 UNIT/ML SYR SQ SCH (21:00)
[2022-06-22] MEDS: LACTATED RINGERS 1,000 ML IV SCH (05:54)
[2022-06-22 06:02] LABS: Glucose,Whole Blood 185 mg/dL (70-110)
[2022-06-22] MEDS: INSULIN ASPART (NovoLOG) 100 UNIT/ML VIAL SQ SCH ×2 (06:56→12:10)
[2022-06-22 07:37] LABS: African American GFR (CKD) 28 (>60 ml/min/1.73 sqM); Anion Gap 8 mmol/L; Blood Urea Nitrogen 51 mg/dL (9-20); Calcium 8.6 mg/dL (8.4-10.2); Carbon Dioxide 21 mmol/L (22-30); Chloride 112 mmol/L (98-107); Glucose 158 mg/dL (74-99); Magnesium 1.7 mg/dL (1.6-2.3); Non-African American GFR(CKD) 24 (>60 ml/min/1.73 sqM); Potassium 3.8 mmol/L (3.5-5.1); Sodium 141 mmol/L (137-145)
[2022-06-22 08:00] VITALS: BP 121/70; PULSE 56; RESP 18; TEMP 98.6
[2022-06-22] MEDS: ATORVASTATIN 40 MG TAB PO SCH (08:17)
[2022-06-22] MEDS: CLOPIDOGREL 75 MG TAB PO SCH (08:17)
[2022-06-22] MEDS: MULTIVITAMINS, THERA 1 EACH TAB PO SCH (08:17)
[2022-06-22] MEDS: CHOLECALCIFEROL 25 MCG (1000 IU) TABLET PO SCH (08:17)
[2022-06-22] MEDS: AMIODARONE 200 MG TAB PO SCH (08:18)
[2022-06-22] MEDS: APIXABAN 5 MG TAB PO SCH (08:18)
[2022-06-22] MEDS: SODIUM BICARBONATE TAB 650 MG TAB PO SCH (08:18)
[2022-06-22] MEDS: METOPROLOL TARTRATE 12.5 MG TAB PO SCH (08:18)
--- NOTE | 2022-06-22 10:56 | P.PN ---
Subjective Progress Note Date: 06/22/22 Principal diagnosis: Patient is a 76-year-old male seen in consultation for acute kidney injury on chronic kidney disease. his acute kidney injury is deemed to be from medications diuretics and probably low intake. He was also covid 19 positive but the x-ray was clear. Creatinine has continued to improve. He is feeling fairly well. Patient was not examined directly but was seen from intestinal because of the colon with 19. He has mild edema History of present illness Patient's creatinine in July 2021 was near 1.4 and was in the range of 1.8 to in March 2022. Patient states he presented to the hospital due to generalized weakness which began on Friday and progressively got worse to the point for he was unable to even stand. He did test positive for COVID-19. Creatinine on admission was 4.73 and is 4.67 today. Blood pressure has been stable but on the lower side with lowest reading 90/58 this admission. Patient does have long-standing history of diabetes. He was taking Lasix as well as losartan at home. Both of these are currently held. Additionally he was also on metformin that she received earlier this morning but has now been disconti nued. He did receive a liter bolus of normal saline and is currently maintained on normal saline at 75 mL an hour. Denies hematuria or dysuria. 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 Giang outpatient. Patient states he's been told that he has no malignancy. Objective - Vital Signs Vital signs: Vital Signs Temp 98.6 F 06/22/22 07:59 Pulse 56 L 06/22/22 07:59 Resp 18 06/22/22 07:59 BP 121/70 06/22/22 07:59 Pulse Ox 97 06/22/22 07:59 FiO2 Intake & Output 06/21/22 06/22/22 06/22/22 18:59 06:59 18:59 Output Total 300 1500 Balance -300 -1500 Output: Urine 300 1500 Other: Voiding Method Toilet Urinal # Voids 7 # Bowel Movements 1 Patient examined from a distance Comfortable sitting in a chair has minimal edema. No respiratory distress noted. Awake alert oriented able to talk and communicate normal - Labs CBC & Chem 7: 06/18/22 20:08 06/22/22 06:29 Labs: Abnormal Lab Results - Last 24 Hours (Table) 06/21/22 06/21/22 06/21/22 Range/Units 05:54 11:26 16:33 Chloride (98-107) mmol/L Carbon Dioxide 18.8 L (20.0-27.5) mmol/L BUN 58.1 H (9.0-27.0) mg/dL Creatinine 3.2 H (0.6-1.5) mg/dL Est GFR (CKD-EPI)AfAm 20.7 L (60.0-200.0) Est GFR (CKD-EPI)NonAf 17.8 L (60.0-200.0) Glucose 187 H (70-110) mg/dL POC Glucose (mg/dL) 228 H 279 H (70-110) mg/dL 06/21/22 06/22/22 06/22/22 Range/Units 19:46 06:00 06:29 Chloride 112 H (98-107) mmol/L Carbon Dioxide 21 L (20.0-27.5) mmol/L BUN 51 H (9.0-27.0) mg/dL Creatinine 2.50 H (0.6-1.5) mg/dL Est GFR (CKD-EPI)AfAm (60.0-200.0) Est GFR (CKD-EPI)NonAf (60.0-200.0) Glucose 158 H (70-110) mg/dL POC Glucose (mg/dL) 243 H 185 H (70-110) mg/dL Microbiology - Last 24 Hours (Table) 06/18/22 22:46 Urine Culture - Final Urine,Voided Escherichia coli Assessment and Plan Assessment: 1. Acute kidney injury secondary to ATN secondary to hypotension, ARB, lasix. Creatinine 4.73 on admission - 4.1 yesterday. Uls showed normal-sized kidneys without hydronephrosis. Kidney cysts were noted. Creatinine improved from a peak of 4.73 mg to 2.5 this morning. COVID-19 19 positive 2. Chronic kidney disease stage IIIB with creatinine 1.4 in July 2021 and 1.8-2 in March 2022. Etiology is likely diabetic kidney disease. Workup has included C ANCA and P ANCA are negative, and a double-stranded DNA negative normal C3-C4 free Light chain and free lambda light chain is slightly elevated 12.7 normal range 1.94 and 8.36 normal range 2.63 respectively, urine protein to creatinine ratio is 1.8 g on 06/18/2022 3. COVID-19 infection. 4. Diabetes mellitus. 5. History of coronary artery disease. 6. History of prostatectomy in August 2021. 7. Metabolic acidosis secondary to acute kidney injury, metformin, and IV fluids. Stable. On oral bicarb. 8. Right kidney mass. Urology following. 9. E. coli UTI on antibiotics. . Recommendation 1. Maintain sodium bicarbonate tablet for the acidosis 2. Trend labs. 3. Follow-up regarding the right kidney mass 4. KVO lactated Ringer's
[2022-06-22 11:46] LABS: Glucose,Whole Blood 250 mg/dL (70-110)
--- NOTE | 2022-06-22 15:05 | P.DS ---
Providers Date of admission: 06/18/22 21:43 Attending physician: Jackson Godinez Consults: 06/18/22 21:41 Consult Physician Routine Consulting Provider: Edis Horn Consult Reason/Comments: YESICA Do you want consulting provider notified?: Yes 06/20/22 11:17 Consult Physician Routine Consulting Provider: Rick Vazquez Consult Reason/Comments: kidney mass Do you want consulting provider notified?: Yes Primary care physician: [facility] Course: Patient is admitted for acute renal failure which his accommodation prerenal and EKG were necrosis. Patient was hypotensive as well at 2 acute renal failure. Patient's Lasix was discontinued losartan and metformin were this can you. Patient is being discharged today patient but sugars are high patient is on glipizide which is being resumed will add linagliptan, trying to avoid insulin. His serum creatinine on admission was 4.7. Presently 2.5 patient is cleared for discharge by nephrology patient is also being discharged in sodium bicarbonate tablets PHYSICAL EXAMINATION: GENERAL: The patient is alert and oriented x3, not in any acute distress. Well developed, well nourished. HEENT: Pupils are round and equally reacting to light. EOMI. No scleral icterus. No conjunctival pallor. Normocephalic, atraumatic. No pharyngeal erythema. No thyromegaly. CARDIOVASCULAR: S1 and S2 present. No murmurs, rubs, or gallops. PULMONARY: Chest is clear to auscultation, no wheezing or crackles. ABDOMEN: Soft, nontender, nondistended, normoactive bowel sounds. No palpable organomegaly. MUSCULOSKELETAL: No joint swelling or deformity. EXTREMITIES: No cyanosis, clubbing, or pedal edema. NEUROLOGICAL: Gross neurological examination did not reveal any focal deficits. SKIN: No rashes. -Acute renal failure secondary to acute tubular necrosis -Hypertension -Type 2 diabetes mellitus next Her other medical problems please refer to progress note from Dr. Godinez Patient Condition at Discharge: Good Plan - Discharge Summary Discharge Rx Participant: No New Discharge Prescriptions: New Sodium Bicarbonate Tab 650 mg PO BID #60 tab Metoprolol Tartrate [Lopressor] 12.5 mg PO BID #30 tab Linagliptin [Tradjenta] 5 mg PO DAILY #30 tab Continue Clopidogrel [Plavix] 75 mg PO DAILY #30 tab Beta-Carotene [Beta Carotene] 25,000 unit PO DAILY glipiZIDE 2.5 mg PO BID Multivit-Min/FA/Lycopen/Lutein [Centrum Silver Men Tablet] 1 tab PO DAILY Rosuvastatin Calcium [Crestor] 20 mg PO DAILY metFORMIN HCL [Glucophage] 500 mg PO BID-W/MEALS Apixaban [Eliquis] 5 mg PO BID Ascorbic Acid [Vitamin C] 500 mg PO DAILY Amiodarone [Cordarone] 100 mg PO DAILY Discontinued Furosemide [Lasix] 20 mg PO Q48H Losartan Potassium 50 mg PO DAILY Metoprolol Succinate (ER) [Toprol XL] 50 mg PO DAILY Discharge Medication List Rosuvastatin Calcium [Crestor] 20 mg PO DAILY 12/02/20 [History] Clopidogrel [Plavix] 75 mg PO DAILY #30 tab 12/13/20 [Rx] metFORMIN HCL [Glucophage] 500 mg PO BID-W/MEALS 06/24/21 [History] Apixaban [Eliquis] 5 mg PO BID 06/25/21 [History] Amiodarone [Cordarone] 100 mg PO DAILY 06/18/22 [History] Ascorbic Acid [Vitamin C] 500 mg PO DAILY 06/18/22 [History] Beta-Carotene [Beta Carotene] 25,000 unit PO DAILY 06/18/22 [History] Multivit-Min/FA/Lycopen/Lutein [Centrum Silver Men Tablet] 1 tab PO DAILY 06/18/22 [History] glipiZIDE 2.5 mg PO BID 06/18/22 [History] Linagliptin [Tradjenta] 5 mg PO DAILY #30 tab 06/22/22 [Rx] Metoprolol Tartrate [Lopressor] 12.5 mg PO BID #30 tab 06/22/22 [Rx] Sodium Bicarbonate Tab 650 mg PO BID #60 tab 06/22/22 [Rx] Follow up Appointment(s)/Referral(s): López Aden DO [Primary Care Provider] - 3 Days (Office is closed at time of discharge. Please call for appointment.) Patient Instructions/Handouts: Acute Kidney Injury (DC) Discharge Disposition: HOME SELF-CARE
== END 2022-06-22 15:50 | disposition home or self-care (01) | DRG 682 ==
LOC: EC 19:46 → 4SSUR 21:43
PROVIDERS: ADMIT Hospitalist; ATTEND Hospitalist
DX: N17.0 Acute kidney failure with tubular necrosis (principal); U07.1 COVID-19; N39.0 Urinary tract infection, site not specified; I50.32 Chronic diastolic (congestive) heart failure; I13.0 Hypertensive heart and chronic kidney disease with heart failure and stage 1 through stage 4 chronic kidney disease, or unspecified chronic kidney disease; E87.20 Acidosis, unspecified; I12.9 Hypertensive chronic kidney disease with stage 1 through stage 4 chronic kidney disease, or unspecified chronic kidney disease; N18.32 Chronic kidney disease, stage 3b; Z87.891 Personal history of nicotine dependence; N40.1 Benign prostatic hyperplasia with lower urinary tract symptoms; Z90.79 Acquired absence of other genital organ(s); B96.20 Unspecified Escherichia coli [E. coli] as the cause of diseases classified elsewhere; E11.22 Type 2 diabetes mellitus with diabetic chronic kidney disease; E11.649 Type 2 diabetes mellitus with hypoglycemia without coma; E78.5 Hyperlipidemia, unspecified; I25.2 Old myocardial infarction; I25.5 Ischemic cardiomyopathy; I25.10 Atherosclerotic heart disease of native coronary artery without angina pectoris; I44.1 Atrioventricular block, second degree; I48.91 Unspecified atrial fibrillation; N28.1 Cyst of kidney, acquired; Z95.3 Presence of xenogenic heart valve; M19.91 Primary osteoarthritis, unspecified site; N28.89 Other specified disorders of kidney and ureter; N39.41 Urge incontinence; R33.8 Other retention of urine; Z79.01 Long term (current) use of anticoagulants; Z79.02 Long term (current) use of antithrombotics/antiplatelets; Z79.84 Long term (current) use of oral hypoglycemic drugs; Z79.899 Other long term (current) drug therapy; Z95.0 Presence of cardiac pacemaker; Z95.1 Presence of aortocoronary bypass graft; Z88.6 Allergy status to analgesic agent
CPT/HCPCS: 36415; 71046; 76770; 80048; 80053; 80074; 81001; 82570; 83605; 83735; 83883; 84100; 84156; 84165; 85025; 85610; 85730; 86038; 86160; 86162; 86225; 86255; 86334; 86335; 87077; 87086; 87186; 87636; 93005; 96360; 96361; 99285

== ENCOUNTER → 2022-09-19 | Outpatient (CLI) | payer MEDICARE ==
--- NOTE | 2022-09-19 10:51 | CT ---
EXAMINATION TYPE: CT abdomen pelvis wo con DATE OF EXAM: 09/19/2022 COMPARISON: 07/18/2021 CT pelvis HISTORY: GROSS HEMATURIA CT DLP: 1325 mGycm Examination of the solid and hollow viscera is limited given the lack of contrast. FINDINGS: LUNG BASES: No evidence for nodule. No evidence for infiltrate. LIVER/GB: There is evidence of noncalcified cholelithiasis. No wall thickening appreciated. No space- occupying hepatic lesion. PANCREAS: No pancreatic mass identified. No inflammatory process seen. SPLEEN: No evidence for splenomegaly. No intrasplenic lesions seen. ADRENALS: No adrenal nodules identified. No evidence for thickening. KIDNEYS: There is calculus noted within the right renal pelvis measuring 1 cm. There appears to be ur othelial thickening which could reflect underlying infection. There is mild prominence of the right r enal pelvis. 1 mm calculus midpole left kidney. No additional calculi seen within either kidney. Low attenuating lesions may reflect cysts on this unenhanced study. There is urinary bladder wall thicken ing which could reflect underlying cystitis. Correlate clinically. BOWEL: Appendix has a normal appearance. No evidence of bowel obstruction. No inflammatory process. Lymph nodes: No evidence for adenopathy greater than 1 cm. Abdominal aorta: Atheromatous changes seen. No evidence for aneurysm. Genital organs: No significant abnormality. Other: There is a [place] umbilical hernia which contains a short segment of the large bowel withou t incarceration. Severe multilevel degenerative disc disease with vacuum disc noted as well as scolio tic curvature of the thoracolumbar spine. IMPRESSION: 1. 1 cm calculus right renal pelvis with urothelial thickening may reflect underlying infection. Ther e is also thickening of the urinary bladder wall which could reflect cystitis. 2. Cholelithiasis. 3. Umbilical hernia.
== END | disposition home or self-care (01) ==
LOC: RADCTMAIN 10:09
PROVIDERS: ATTEND Urology
DX: K80.20 Calculus of gallbladder without cholecystitis without obstruction (principal); K42.9 Umbilical hernia without obstruction or gangrene; N39.0 Urinary tract infection, site not specified; N20.0 Calculus of kidney; N32.89 Other specified disorders of bladder
CPT/HCPCS: 74176

== ENCOUNTER 2022-10-16 09:06 | Day surgery (SDC) | payer MEDICARE ==
--- NOTE | 2022-10-15 17:28 | P.GSHP ---
History of Present Illness H&P Date: 10/15/22 77 yo male with recurrent and persistent uti. He has a 1 cm renal pelvic stones. He has been placed on antibiotics and now comes for a right ureteroscopy with laser lithotripsy and stent for the stone.. The risks of infection, sepsis, pain, bleeding, failure to remove all the stone have been explained understood and accepted. - Constitutional Constitutional: Denies chills, Denies fever - EENT Eyes: denies blurred vision, denies pain Ears, nose, mouth and throat: Denies headache, Denies sore throat - Cardiovascular Cardiovascular: Denies chest pain, Denies shortness of breath - Respiratory Respiratory: Denies cough, Denies 7 - Gastrointestinal Gastrointestinal: Denies abdominal pain, Denies diarrhea, Denies nausea, Denies vomiting - Genitourinary (Female) Genitourinary: Denies dysuria, Denies hematuria - Genitourinary (Male) Genitourinary: Denies dysuria, Denies hematuria - Musculoskeletal Musculoskeletal: Denies myalgias - Integumentary Integumentary: Denies pruritus, Denies rash - Neurological Neurological: Denies numbness, Denies weakness - Psychiatric Psychiatric: Denies anxiety, Denies depression - Endocrine Endocrine: Denies fatigue, Denies weight change Past Medical History Past Medical History: Atrial Fibrillation, Coronary Artery Disease (CAD), Diabetes Mellitus, GERD/Reflux, Hyperlipidemia, Hypertension, Osteoarthritis (OA), Prostate Disorder, Renal Disease Additional Past Medical History / Comment(s): Prostatectomy d/t BPH, anemia with iron infusions, NIDDM type II, CKD, Last Myocardial Infarction Date:: 12/01/20 History of Any Multi-Drug Resistant Organisms: None Reported Past Surgical History: Adenoidectomy, Cardiac Ablation, Cardiac Valve Replacement, Coronary Bypass/CABG, EPS, Heart Catheterization, Heart Catheterization With Stent, Pacemaker, Prostate Surgery, Tonsillectomy Additional Past Surgical History / Comment(s): aortic valve replacement December 2020, pacemaker placed on 06/19/21, prostate removed 08/2021, colonoscopy/benign polyps Past Anesthesia/Blood Transfusion Reactions: No Reported Reaction Date of Last Stent Placement:: 12/07/20 Type of Cardiac Device: Biventricular Pacemaker Device Placement Date:: 06/19/21 Smoking Status: Former smoker - Past Family History Sister(s) Family Medical History: Cancer Additional Family Medical History / Comment(s): 2 SISTERS HAD LUNG CANCER. Medications and Allergies Home Medications Medication Instructions Recorded Confirmed Type Rosuvastatin Calcium [Crestor] 20 mg PO QAM 12/02/20 10/14/22 History Apixaban [Eliquis] 5 mg PO BID 06/25/21 10/14/22 History Amiodarone [Cordarone] 100 mg PO QAM 06/18/22 10/14/22 History Ascorbic Acid [Vitamin C] 500 mg PO QAM 06/18/22 10/14/22 History Multivit-Min/FA/Lycopen/Lutein 1 tab PO W/SUPPER 06/18/22 10/14/22 History [Centrum Silver Men Tablet] glipiZIDE 2.5 mg PO BID 06/18/22 10/14/22 History Metoprolol Tartrate [Lopressor] 12.5 mg PO BID #30 tab 06/22/22 10/14/22 Rx Aspirin 81 mg PO QAM 09/30/22 10/14/22 History Famotidine [Pepcid] 20 mg PO DAILY PRN 09/30/22 10/14/22 History amLODIPine [Norvasc] 5 mg PO QAM 09/30/22 10/14/22 History Ciprofloxacin HCl [Cipro] 500 mg PO W/SUPPER 10/14/22 10/14/22 History Cranberry Fruit Extract [Cranberry] 500 mg PO BID 10/14/22 10/14/22 History Linagliptin [Tradjenta] 5 mg PO QAM 10/14/22 10/14/22 History Allergies Allergy/AdvReac Type Severity Reaction Status Date / Time ibuprofen AdvReac TOLD NOT Verified 10/14/22 11:[address] BECAUSE OF HIS KIDNEYS Surgical - Exam - General well developed, well nourished, no distress - Eyes normal ocular movement, no icteric - ENT no hearing loss, no congestion - Neck no masses, trachea midline - Respiratory normal respiratory effort, clear to auscultation - Abdomen Abdomen: soft, non tender, no guarding, no rigid, no rebound - Integumentary no rash, no abnormal pigmentation - Neurologic no disoriented, no combative - Psychiatric oriented to time, oriented to person, oriented to place, speech is normal, memory intact Results - Imaging CT scan - abdomen: report reviewed, image reviewed CT scan - pelvis: report reviewed, image reviewed Assessment and Plan Assessment: Impression: right renal stone, infected. DM, CAD HTN Plan: right ureteroscopy with laser lithotripsy
[~2022-10-16 09:06] MED LIST changes: +AMPICILLIN 1,000 MG in SODIUM CHLORIDE 0.9% 50 ML IVPB PRN; -HEPARIN SODIUM,PORCINE/PF 5,000 UNIT/0.5 ML SYRINGE SQ PRN; -HYDROmorphone 0.5 MG/0.5 ML SYRINGE IVP PRN; +LACTATED RINGERS 1,000 ML IV SCH; -LIDOCAINE 1% (10MG/ML) FOR IV START INTRADERMA PRN
--- NOTE | 2022-10-16 09:45 | XR ---
EXAMINATION TYPE: XR KUB DATE OF EXAM: 10/16/2022 COMPARISON: None INDICATION: Pain TECHNIQUE: Single view abdomen FINDINGS: There is a normal bowel gas pattern. Fecal debris is in the ascending colon. Psoas margins are normal. No organomegaly is present. Scoliosis is present within the lumbar spine with convexity to the left. There is a 1.6 cm calcification overlying the mid right kidney. IMPRESSION: 1. 1.6 cm right renal stone. 2. Scoliosis
[2022-10-16 11:07] LABS: Glucose,Whole Blood 140 mg/dL (70-110)
[2022-10-16] MEDS ORDERED: LIDOCAINE 2% INJ 20 MG/ML (2 ML VIAL) ONE (12:14)
[2022-10-16] MEDS ORDERED: ePHEDrine 50 MG/ML 1 ML VIAL ONE (12:14)
[2022-10-16] MEDS ORDERED: PROPOFOL 10 MG/ML 20 ML VIAL IV ONE (12:14)
[2022-10-16] MEDS ORDERED: MIDAZOLAM 2 MG/2 ML VIAL ONE (12:14)
[2022-10-16] MEDS ORDERED: fentaNYL (PF) 50 MCG/ML 50 ML VIAL ONE (12:14)
[2022-10-16] MEDS ORDERED: SUCCINYLCHOLINE CHLORIDE 200 MG/10 ML VIAL IV ONE (12:14)
[2022-10-16] MEDS ORDERED: LACTATED RINGERS 1,000 ML IV ONE (13:16)
--- NOTE | 2022-10-16 13:28 | P.OP ---
Date of Procedure: 10/16/22 Preoperative Diagnosis: Recurrent and chronic urinary tract infection, right renal stone Postoperative Diagnosis: Same Procedure(s) Performed: Cystoscopy, right ureteroscopy with laser lithotripsy, placement of 626 stent Anesthesia: DANNY Surgeon: Bryan Fitch Estimated Blood Loss (ml): 0 Pathology: other (Stone) Condition: stable Disposition: PACU Indications for Procedure: Patient is 77. He is having persistent urine infection. He is been treated with antibiotics only of the infection come back. His bladder empties. The only significant finding is a persistent right renal stone that is probably infected he comes for removal of the stone. Description of Procedure: Patient brought to the operating suite. Given a general anesthetic. Placed lithotomy position with sterile prep and drape. Cystoscopy Foroblique lens and 21-Lithuanian sheath identifies a normal anterior urethra. Prostatic urethra shows previous TURP. The bladder warner trabeculated. There are no stones. The right ureteral orifice is identified and intubated with an 035 wire passed up into the kidney. Over the wire is passed [id number] sheath up in the proximal right ureter. The inner sheath and wire removed. The flexible scope ureteroscope was passed up the right renal pelvis. The right renal pelvis was inflamed. There is an infected appearing stone. With the 275 laser probe the stone is dusted into tiny fragments. The majority of it is flushed out of the ureter. I basket larger fragments for pathology. Due to the procedure there is no significant fragments other than dusted. Move the ureteroscope. An 035 wires passed up into the right renal pelvis. The sheath is removed. The wires backloaded onto the cystoscope. Over the wires and passed a 6 x 26 double-J catheter that coils in the right renal pelvis the bladder bladder strain the patient is awakened and returned recovery room good condition. Blood loss is minimal. He tolerated procedure well. He'll be discharged home upon recovery. [facility].
--- NOTE | 2022-10-16 13:31 | FL ---
Intraoperative/procedural fluoroscopic services were provided for right-sided cystoscopy/lithotripsy. Total fluoroscopy time is 16 seconds with a total of 3 submitted images to PACS. Total DAP 2.8513 Gy cm2. Please see the operative note for further details.
[2022-10-16 13:42] VITALS: TEMP 97.1
[2022-10-16 13:48] VITALS: RESP 16
[2022-10-16 15:02] VITALS: BP 134/71; PULSE 58
[2022-10-17] MEDS ORDERED: HYDROmorphone 0.5 MG/0.5 ML SYRINGE IVP PRN (07:00)
== END 2022-10-16 15:05 | disposition home or self-care (01) ==
LOC: OR 09:06
PROVIDERS: ATTEND Urology
DX: N20.0 Calculus of kidney (principal); N39.0 Urinary tract infection, site not specified; I48.91 Unspecified atrial fibrillation; I25.10 Atherosclerotic heart disease of native coronary artery without angina pectoris; E11.9 Type 2 diabetes mellitus without complications; E78.5 Hyperlipidemia, unspecified; K21.9 Gastro-esophageal reflux disease without esophagitis; I25.2 Old myocardial infarction; Z90.89 Acquired absence of other organs; Z95.1 Presence of aortocoronary bypass graft; Z95.2 Presence of prosthetic heart valve; Z80.1 Family history of malignant neoplasm of trachea, bronchus and lung; Z87.891 Personal history of nicotine dependence; Z79.01 Long term (current) use of anticoagulants; Z79.899 Other long term (current) drug therapy
CPT/HCPCS: 82365; 74018; 52353; C1769; J2250; J0330; J1100; J3010; J2405; J1580; J0290; J2704; J2001

== ENCOUNTER → 2022-11-06 | Outpatient (CLI) | payer MEDICARE ==
--- NOTE | 2022-11-06 13:49 | XR ---
EXAMINATION TYPE: XR KUB DATE OF EXAM: 11/06/2022 11:51 AM CLINICAL HISTORY: Right-sided kidney stone TECHNIQUE: Two supine KUB images of the abdomen are obtained. COMPARISON: Abdominal x-ray October 16, 2022. CT abdomen and pelvis September 19, 2022. FINDINGS: Prior visualized 1.6 cm right renal calculus now is not clearly seen suggesting successful interval treatment. Levoconvex scoliosis centered at L2-L3 level is redemonstrated. There is multilevel spurring in the l umbar spine redemonstrated. There is moderate axial joint space loss in both hips redemonstrated. The re is partial visualization of mild cardiomegaly along with pacemaker wires and overlying sternal wir es and mediastinal clips. Left pelvic vascular calcification is redemonstrated. Overall nonobstructiv e bowel gas pattern. IMPRESSION: As above.
== END | disposition home or self-care (01) ==
LOC: RADXRMAIN 11:34
PROVIDERS: ATTEND Urology
DX: N20.0 Calculus of kidney (principal)
CPT/HCPCS: 74018